=== PATIENT | female | born 1930 | race Hispanic/Latino ===

== ENCOUNTER 2017-08-06 09:40 | Inpatient (IN) | payer MEDICARE ==
[2017-08-06] MEDS ORDERED: Albuterol-Ipratrop 3 mg / 0.5 (3 ml) UD ONE (10:03)
[2017-08-06] MEDS ORDERED: Albuterol-Ipratrop 3 mg / 0.5 (3 ml) UD INH STA (10:15)
[2017-08-06 10:19] LABS: ABG ALLEN TEST YES; ARTERIAL BLOOD GAS O2 SAT 97.6 % (95-98); ARTERIAL BLOOD GAS PCO2 52 mm/Hg (35-45); ARTERIAL BLOOD GAS PH 7.27 (7.35-7.45); ARTERIAL BLOOD GAS PO2 79 mm/Hg (80-100); ARTERIAL BLOOD GAS TCO2 25.5 mmol/L (22-28)
--- NOTE | 2017-08-06 10:29 | ED PDOC ---
HPI: SOB/CHF/COPD Time Seen by Provider: 08/06/17 10:00 Chief Complaint (Nursing): Shortness Of Breath Chief Complaint (Provider): Shortnes of Breath History Per: Patient History/Exam Limitations: no limitations Onset/Duration Of Symptoms: Days (1x) Quality: "Pain" Exacerbating Factor(s): Laying Flat Associated Symptoms: Ankle/Leg Swelling. denies: Fever, Chest Pain Additional Complaint(s): 86 year old female with a history of hypertension and high cholesterol presents to the ED complaining of shortness of breath. Patient states it worsens when she tries to lie down or sleep. Also reports of leg swelling on both legs as well as wheezing and coughing. States this is the first time she has had this problem. Patient has had carotid endarterectomy and takes Aspirin. Denies chest pain or fever. PMD: Jean Carlos Miles Past Medical History Reviewed: Historical Data, Nursing Documentation, Vital Signs Vital Signs: Last Vital Signs Temp 97.5 F L 08/06/17 10:08 Pulse 98 H 08/06/17 12:04 Resp 30 H 08/06/17 10:12 BP 143/84 08/06/17 13:13 Pulse Ox 95 08/06/17 12:04 - Medical History PMH: HTN, Hypercholesterolemia Denies: Chronic Kidney Disease - Surgical History Other surgeries: carotid endarterectomy - Family History Family History: States: Unknown Family Hx - Home Medications Home Medications: Ambulatory Orders Medication Instructions Recorded ALPRAZolam [Xanax] 0.25 mg PO Q12 PRN 08/06/17 Aspirin [Ecotrin] 81 mg PO DAILY 08/06/17 Azilsartan Medoxomil [Edarbi] 80 mg PO DAILY 08/06/17 Clopidogrel [Plavix] 75 mg PO DAILY 08/06/17 Doxazosin [Cardura] 2 mg PO HS 08/06/17 Ergocalciferol (Vitamin D2) 50,000 unit PO SUN 08/06/17 [Vitamin D2] Febuxostat [Uloric] 40 mg PO DAILY 08/06/17 Icosapent Ethyl [Vascepa] 1 cap PO BID 08/06/17 Levocetirizine Dihydrochloride 5 mg PO DAILY 08/06/17 [Xyzal] Liraglutide [Victoza 3-Rohan] 1.8 mg SC DAILY 08/06/17 Meclizine [Meclizine*] 25 mg PO DAILY PRN 08/06/17 Montelukast [Singulair] 10 mg PO HS 08/06/17 Nebivolol [Bystolic] 20 mg PO DAILY 08/06/17 Rosuvastatin Calcium [Crestor] 10 mg PO HS 08/06/17 - Allergies Allergies/Adverse Reactions: Allergies Allergy/AdvReac Type Severity Reaction Status Date / Time No Known Allergies Allergy Verified 08/06/17 10:01 Review of Systems ROS Statement: Except As Marked, All Systems Reviewed And Found Negative Cardiovascular: Negative for: Chest Pain Respiratory: Positive for: Cough, Shortness of Breath, Wheezing Physical Exam - Reviewed Nursing Documentation Reviewed: Yes Vital Signs Reviewed: Yes - Physical Exam Appears: Positive for: Non-toxic, In Acute Distress Head Exam: Positive for: ATRAUMATIC, NORMAL INSPECTION, NORMOCEPHALIC Skin: Positive for: Normal Color, Warm, Dry Eye Exam: Positive for: EOMI, Normal appearance, PERRL ENT: Positive for: Normal ENT Inspection Neck: Positive for: Normal, Painless ROM, Supple. Negative for: Decreased ROM Cardiovascular/Chest: Positive for: Regular Rate, Rhythm, Edema, Tachycardia. Negative for: Murmur Respiratory: Positive for: Accessory Muscle Use, Rhonchi, Wheezing (bilateral), Respiratory Distress (bleeding). Negative for: Normal Breath Sounds Gastrointestinal/Abdominal: Positive for: Normal Exam, Bowel Sounds, Soft. Negative for: Tenderness, Guarding, Rebound Back: Positive for: Normal Inspection. Negative for: L CVA Tenderness, R CVA Tenderness Extremity: Positive for: Normal ROM, Pedal Edema, Swelling (bilateral) Neurologic/Psych: Positive for: Alert, Oriented (x3). Negative for: Motor/ Sensory Deficits - Laboratory Results Result Diagrams: 08/06/17 10:21 08/06/17 10:21 - ECG ECG Rhythm: Positive for: Normal QRS, Sinus Rhythm, ST/T Changes (LVH) Interpretation Of ECG: left ventricular hypertrophy with regularization abnormality Rate: 98 O2 Sat by Pulse Oximetry: 95 (RA) Pulse Ox Interpretation: Normal - Radiology X-Ray: Interpreted by Me, Viewed By Me, Read By Radiologist X-Ray Interpretation: Cardiomegaly, Other (CHF) - Progress Re-evaluation Time: 11:40 Condition: Re-examined, Improving,but remains with symptoms - Critical Care Total Time (In Min): 60 Documented Critical Care: Time excludes all time spent performint seperately billable procedures Medical Decision Making Medical Decision Making: Time: 1001 Initial Impression: Shortness of Breath Differential Diagnosis includes but is not limited to: ACS, acute CHF, Pneumonia , acute Bronchitis Initial Plan: --ABG Shock Panel --EKG --B-Type Natriuretic Peptide --BMP --Thyroid Stimulating Hormone --Troponin I --CBC w/ Differential --PTT --Prothrombin Time --Chest One View --Chest Portable --Aspirin 325mg --Albuterol 3ml INH --Nitroglycerin 0.4mg --Blood Culture --Bipap Procedure --Peak Flow Pre/Post TX --Reevaluation Time: 1007 EKG demonstrated 98bpm, normal sinus rhythm, normal QRS, ST changes present, and left ventricular hypertrophy with repolarization abnormality Discussed case and EKG with Dr. Modi who reviewed the EKG states that the are no criteria for CODE HEART, recommended to do a cardiac workup and treat as NSTEMI. [address] Modi elevated troponin who recommends medical therapy for NSTEMI. [address] Saenz who will admit the patient. Requests Dr Perez. [address] Perez who agress this is not CODE HEART and recommends admission to ICU at this time and stabilize for urgent cath if patients agrees. 1155 I discussed with the patient who agrees with conservative therapy but refuses cath at this time. Scribe Attestation: Documented by Kirill Spears, acting as a scribe for Kesha Hancock MD Provider Scribe Attestation: All medical record entries made by the Scribe were at my direction and personally dictated by me. I have reviewed the chart and agree that the record accurately reflects my personal performance of the history, physical exam, medical decision making, and the department course for this patient. I have also personally directed, reviewed, and agree with the discharge instructions and disposition. Disposition - Clinical Impression Clinical Impression: Non-ST elevation TX (NSTEMI), Acute CHF - Patient ED Disposition Is Patient to be Admitted: Yes Discussed With Dr.: Clint Saenz (Mary PIERSON) Doctor Will See Patient In The: ED Counseled Patient/Family Regarding: Studies Performed, Diagnosis, Need For Followup - Disposition Disposition Time: 11:00 Condition: CRITICAL - Pt Status Changed To: Hospital Disposition Of: Inpatient - Admit Certification Admit to Inpatient:: After my assessment, the patient will require hospitalization for at least two midnights. This is because of the severity of symptoms shown, intensity of services needed, and/or the medical risk in this patient being treated as an outpatient. - POA Present On Arrival: None
[2017-08-06 10:37] LABS: BASO % 0.2 % (0.0-2.0); EOS % 0.1 % (0.0-4.0); HEMOGLOBIN 12.8 g/dL (12.0-16.0); LYMPH # 3.4 K/uL (1.0-4.3); LYMPH % 19.8 % (20.0-40.0); MEAN CELL VOLUME 88.2 fl (81.0-99.0); MEAN CORPUSCULAR HGB CONC 31.7 g/dL (33.0-37.0); MEAN PLATELET VOLUME 8.5 fl (7.2-11.7); MONO % 5.9 % (0.0-10.0); NEUT # 12.6 K/uL (1.8-7.0); RBC 4.58 Mil/uL (3.80-5.20); RED CELL DISTRIBUTION WIDTH 14.4 % (11.5-14.5)
[2017-08-06 10:47] LABS: BLOOD UREA NITROGEN 19 mg/dl (7-17); CALCIUM 10.9 mg/dL (8.4-10.2); GFR AFRICAN-AMERICAN > 60; GFR NON-AFRICAN AMERICAN 52
[2017-08-06 11:12] LABS: PARTIAL THROMBOPLASTIN TIME 28.5 Seconds (25.6-37.1); PROTHROMBIN TIME 11.2 Seconds (9.8-13.1)
[2017-08-06 11:22] LABS: B-TYPE NATRIURETIC PEPTIDE 15500 pg/ml (0-900)
[2017-08-06] MEDS ORDERED: Heparin 25,000units in D5W 25,000 UNITS/250 ML BAG IV SCH (11:30)
--- NOTE | 2017-08-06 11:55 | CP.PCM.CON ---
History of Present Illness - History of Present Illness History of Present Illness: 86 y/o female with pmx of CAD, heart failure presents to [facility] with c/o SOB. Patient was dx with NSTEMI. Patient has h/o using 3 pillows and many times uses a chair to sleep. Patient has exercise toelrance of about 1 block. Patient has h/o CEA (taking asa/plavix). Patient denies any chest pain upon evaluation. (+)SOB Pmx: CAD, CEA, HTN, hypercholesterolemia Psurg hs; CEA allergies: denies SH: h/o smoking (quit 20 yrs ago) Review of Systems - Cardiovascular Cardiovascular: Dyspnea - Respiratory Respiratory: Dyspnea, Dyspnea on Exertion - Gastrointestinal Gastrointestinal: absent: Abdominal Pain, Belching, Early Satiety, Fecal Incontinence, Hematemesis Past Patient History - Tetanus Immunizations Tetanus Immunization: Unknown - Past Social History Smoking Status: Former Smoker Chewing Tobacco Use: No Cigar Use: No - CARDIAC Hx Hypercholesterolemia: Yes Hx Hypertension: Yes - PULMONARY Hx Respiratory Disorders: No - NEUROLOGICAL Hx Neurological Disorder: No - HEENT Hx HEENT Problems: No - RENAL Hx Chronic Kidney Disease: No - ENDOCRINE/METABOLIC Hx Endocrine Disorders: No - HEMATOLOGICAL/ONCOLOGICAL Hx Blood Disorders: No - INTEGUMENTARY Hx Dermatological Problems: No - MUSCULOSKELETAL/RHEUMATOLOGICAL Hx Musculoskeletal Disorders: No - GASTROINTESTINAL Hx Gastrointestinal Disorders: No - GENITOURINARY/GYNECOLOGICAL Hx Genitourinary Disorders: No - PSYCHIATRIC Hx Psychophysiologic Disorder: No Hx Substance Use: No - SURGICAL HISTORY Hx Surgeries: No - ANESTHESIA Hx Anesthesia: No Meds Allergies/Adverse Reactions: Allergies Allergy/AdvReac Type Severity Reaction Status Date / Time No Known Allergies Allergy Verified 08/06/17 10:01 - Medications Medications: Current Medications Heparin Sodium/Dextrose (Heparin 25,000 Units/250ml In D5w) 25,000 units in 250 mls @ 10 mls/hr IV .Q24H TOD PRN Reason: Protocol Physical Exam - Head Exam Head Exam: ATRAUMATIC, NORMAL INSPECTION, NORMOCEPHALIC Additional comments: (+)JVD - Respiratory Exam Respiratory Exam: Rales, NORMAL BREATHING PATTERN - Cardiovascular Exam Cardiovascular Exam: REGULAR RHYTHM, +S1, +S2, Systolic Murmur - GI/Abdominal Exam GI & Abdominal Exam: Normal Bowel Sounds, Soft - Extremities Exam Extremities exam: Positive for: pedal edema - Neurological Exam Neurological exam: Alert, CN II-XII Intact, Oriented x3 Results - Vital Signs Recent Vital Signs: Last Vital Signs Temp 97.5 F L 08/06/17 10:08 Pulse 98 H 08/06/17 11:19 Resp 30 H 08/06/17 10:12 BP 127/87 08/06/17 10:08 Pulse Ox 95 08/06/17 11:19 - Labs Result Diagrams: 08/06/17 10:21 08/06/17 10:21 Labs: Laboratory Results - last 24 hr 08/06/17 08/06/17 08/06/17 10:01 10:21 10:21 WBC 17.0 H RBC 4.58 Hgb 12.8 Hct 40.4 MCV 88.2 MCH 28.0 MCHC 31.7 L RDW 14.4 Plt Count 252 MPV 8.5 Neut % (Auto) 74.0 Lymph % (Auto) 19.8 L A[place] % (Auto) 5.9 Eos % (Auto) 0.1 Baso % (Auto) 0.2 Neut # (Auto) 12.6 H Lymph # (Auto) 3.4 Avery # (Auto) 1.0 H Eos # (Auto) 0.0 Baso # (Auto) 0.0 PT INR APTT pCO2 52 H pO2 79 L HCO3 22.0 ABG pH 7.27 L ABG Total CO2 25.5 ABG O2 Saturation 97.6 ABG Base Excess -3.6 L Eloy Test Yes ABG Potassium 4.6 A-a O2 Difference 70.0 Sodium 135.0 136 Chloride 101.0 99 Glucose 198 H Lactate 4.4 H* FiO2 30.0 Blood Gas Comments 2l/m nc,rr Crit Value Called To Dr reggie maruice Crit Value Called By 15 Crit Value Read Back Y Blood Gas Notified Time 1018 Potassium 4.7 Carbon Dioxide 18 L Anion Gap 24 H BUN 19 H Creatinine 1.0 Est GFR ( Amer) > 60 Est GFR (Non-Af Amer) 52 Random Glucose 179 H Calcium 10.9 H Troponin I 33.8000 H* NT-Pro-B Natriuret Pep 32193 H TSH 3rd Generation 2.83 Arterial Blood Potassium 4.6 08/06/17 10:50 WBC RBC Hgb Hct MCV MCH MCHC RDW Plt Count MPV Neut % (Auto) Lymph % (Auto) Avery % (Auto) Eos % (Auto) Baso % (Auto) Neut # (Auto) Lymph # (Auto) Avery # (Auto) Eos # (Auto) Baso # (Auto) PT 11.2 INR 1.0 APTT 28.5 pCO2 pO2 HCO3 ABG pH ABG Total CO2 ABG O2 Saturation ABG Base Excess Eloy Test ABG Potassium A-a O2 Difference Sodium Chloride Glucose Lactate FiO2 Blood Gas Comments Crit Value Called To Crit Value Called By Crit Value Read Back Blood Gas Notified Time Potassium Carbon Dioxide Anion Gap BUN Creatinine Est GFR ( Amer) Est GFR (Non-Af Amer) Random Glucose Calcium Troponin I NT-Pro-B Natriuret Pep TSH 3rd Generation Arterial Blood Potassium Assessment & Plan - Assessment and Plan (Free Text) Assessment: NSTEMI: cardiology input, continue DAPT, asa/plavix, start IV heparin, statin, hodl ACEi in light of possible PCI, obtain ECHO -SOB/ssupect chronic systolic/diastolic heart failure: will benefit from Bi-pap , check ABG on bi-pap, lasix -leukocytosis: suspect 2nd PA however will pancutlure, dose ceftriaxone 1 gm x1 ; if febriel will start ABX -NPO, BGM q6hrs ISS aspart -DVT ppx IV heparin -PUD ppx pepcid Patient will benfit from ICU level care until acute phase resolves. d/w Dr. Perez - Date & Time Date: 08/06/17 Time: 15:07
[2017-08-06] MEDS ORDERED: Sodium Chloride 3% for Inhalation 4 ML VIAL.NEB IH PRN (11:57)
[2017-08-06] MEDS ORDERED: Heparin 25,000units in D5W 25,000 UNITS/250 ML BAG IV ONE (12:05)
--- NOTE | 2017-08-06 12:22 | RAD ---
PROCEDURE: CHEST RADIOGRAPH, 1 VIEW HISTORY: dyspnea COMPARISON: None available. FINDINGS: LUNGS: Increased interstitial markings are identified bilaterally, diffusely without definitive alveolitis. Underlying chronic interstitial pulmonary disease is not completely excluded. PLEURA: No pneumothorax or pleural fluid seen. CARDIOVASCULAR: Cardiomegaly is questioned though evaluation is limited due to frontal technique. [id number] pulmonary venous congestion is present, which combined with interstitial pattern described above, suggests active CHF. OSSEOUS STRUCTURES: No significant abnormalities. VISUALIZED UPPER ABDOMEN: Normal. OTHER FINDINGS: None. IMPRESSION: Active CHF as described above. No definite alveolitis or pleural effusion bilaterally paucity of underlying chronic interstitial pulmonary disease is not excluded.
[2017-08-06] MEDS ORDERED: Albuterol 0.083% Inhal Sol (2.5 mg/3 mL) UD INH ONE (12:56)
--- NOTE | 2017-08-06 12:56 | CP.PCM.HP ---
History of Present Illness - History of Present Illness History of Present Illness: 86 yo ,f, PMhx/o HTN, HLD presents c/o SOB started 2 days ago associated with dry cough, runny nose, sore throat and left shoulder pain radiated to upper back. She reports ocs whitish productive cough with blood tinge expectoration. Reports hx/o of orthopnea for about 1 year, but getting worse for the last 2 days with associated pedal edema. . She denies fever, diaphoresis, n,v,d,abd pain, dysuria, recent infection. Patient evaluated in Ed with several members of the family present. Patient improved respiratory distress with prior medications and O2. Patient stable now, good O2 sat, able to talk in full sentences. AAO x3, refusing to stay in hospital, going to ICU and PCI. Family members and patient explained about patient medical condition, plan by Contract Negotiation Specialist and they agree, but patient still refusing going ICU and PCI. Dr Melgoza and me present. Dr Saenz aware covering for Dr Miles. Family members reports patient had never had hospitalizations before PMD: Dr Miles Present on Admission - Present on Admission Any Indicators Present on Admission: No History of DVT/PE: No History of Uncontrolled Diabetes: No Urinary Catheter: No Decubitus Ulcer Present: No Review of Systems - Review of Systems All systems: reviewed and no additional remarkable complaints except - Musculoskeletal Additional comments: left shoulder pain Past Patient History - Past Social History Smoking Status: Never Smoked - CARDIAC Hx Hypercholesterolemia: Yes Hx Hypertension: Yes - PULMONARY Hx Respiratory Disorders: No - NEUROLOGICAL Hx Neurological Disorder: No - HEENT Hx HEENT Problems: No - RENAL Hx Chronic Kidney Disease: No - ENDOCRINE/METABOLIC Hx Endocrine Disorders: No - HEMATOLOGICAL/ONCOLOGICAL Hx Blood Disorders: No - INTEGUMENTARY Hx Dermatological Problems: No - MUSCULOSKELETAL/RHEUMATOLOGICAL Hx Musculoskeletal Disorders: No - GASTROINTESTINAL Hx Gastrointestinal Disorders: No - GENITOURINARY/GYNECOLOGICAL Hx Genitourinary Disorders: No - PSYCHIATRIC Hx Psychophysiologic Disorder: No Hx Substance Use: No - SURGICAL HISTORY Hx Surgeries: No - ANESTHESIA Hx Anesthesia: No Meds Allergies/Adverse Reactions: Allergies Allergy/AdvReac Type Severity Reaction Status Date / Time No Known Allergies Allergy Verified 08/06/17 10:01 Physical Exam - Constitutional Appears: In Acute Distress (mild for respiratory distress) - Head Exam Head Exam: ATRAUMATIC, NORMOCEPHALIC - Eye Exam Eye Exam: Normal appearance - Respiratory Exam Respiratory Exam: Rales. absent: Rhonchi, Wheezes Additional comments: b/l rales 2/3 both lung hall - Cardiovascular Exam Cardiovascular Exam: REGULAR RHYTHM, +S1, +S2 - GI/Abdominal Exam GI & Abdominal Exam: Normal Bowel Sounds, Soft. absent: Tenderness Additional comments: obese abdomen - Extremities Exam Extremities exam: Positive for: pedal edema (2+ ankles) - Neurological Exam Neurological exam: Alert, Oriented x3 - Psychiatric Exam Psychiatric exam: Normal Affect, Normal Mood - Skin Skin Exam: Intact Results - Vital Signs Recent Vital Signs: Last Vital Signs Temp 97.5 F L 08/06/17 10:08 Pulse 98 H 08/06/17 12:04 Resp 30 H 08/06/17 10:12 BP 127/87 08/06/17 10:08 Pulse Ox 95 08/06/17 12:04 - Labs Result Diagrams: 08/06/17 10:21 08/06/17 10:21 Labs: Laboratory Results - last 24 hr 08/06/17 08/06/17 08/06/17 10:01 10:21 10:21 WBC 17.0 H RBC 4.58 Hgb 12.8 Hct 40.4 MCV 88.2 MCH 28.0 MCHC 31.7 L RDW 14.4 Plt Count 252 MPV 8.5 Neut % (Auto) 74.0 Lymph % (Auto) 19.8 L [place] % (Auto) 5.9 Eos % (Auto) 0.1 Baso % (Auto) 0.2 Neut # (Auto) 12.6 H Lymph # (Auto) 3.4 [place] # (Auto) 1.0 H Eos # (Auto) 0.0 Baso # (Auto) 0.0 PT INR APTT pCO2 52 H pO2 79 L HCO3 22.0 ABG pH 7.27 L ABG Total CO2 25.5 ABG O2 Saturation 97.6 ABG Base Excess -3.6 L Eloy Test Yes ABG Potassium 4.6 A-a O2 Difference 70.0 Sodium 135.0 136 Chloride 101.0 99 Glucose 198 H Lactate 4.4 H* FiO2 30.0 Blood Gas Comments 2l/m nc,rr Crit Value Called To Dr reggie maurice Crit Value Called By 15 Crit Value Read Back Y Blood Gas Notified Time 1018 Potassium 4.7 Carbon Dioxide 18 L Anion Gap 24 H BUN 19 H Creatinine 1.0 Est GFR ( Amer) > 60 Est GFR (Non-Af Amer) 52 Random Glucose 179 H Calcium 10.9 H Troponin I 33.8000 H* NT-Pro-B Natriuret Pep 90767 H TSH 3rd Generation 2.83 Arterial Blood Potassium 4.6 08/06/17 10:50 WBC RBC Hgb Hct MCV MCH MCHC RDW Plt Count MPV Neut % (Auto) Lymph % (Auto) [place] % (Auto) Eos % (Auto) Baso % (Auto) Neut # (Auto) Lymph # (Auto) [place] # (Auto) Eos # (Auto) Baso # (Auto) PT 11.2 INR 1.0 APTT 28.5 pCO2 pO2 HCO3 ABG pH ABG Total CO2 ABG O2 Saturation ABG Base Excess Eloy Test ABG Potassium A-a O2 Difference Sodium Chloride Glucose Lactate FiO2 Blood Gas Comments Crit Value Called To Crit Value Called By Crit Value Read Back Blood Gas Notified Time Potassium Carbon Dioxide Anion Gap BUN Creatinine Est GFR ( Amer) Est GFR (Non-Af Amer) Random Glucose Calcium Troponin I NT-Pro-B Natriuret Pep TSH 3rd Generation Arterial Blood Potassium Assessment & Plan - Assessment and Plan (Free Text) Plan: Assessment/Plan 1) NSTEMI -Trop x 1 high. EKG LVH -discussed with Contract Negotiation Specialist Dr Perez in ED. Pt candidate for PCI, but patient refuses -will go to ICU meantime. -Heparin given in ED -c/w ACS heparin protocol -s/p nitro Ed, aspirin -F/u Troponin, echo, ekg 2) Acute CHF -secondary to pulmonary edema 2/2 NSTEMI -f/u ECO -c/w O2 bipap 3) Respiratory distress -respiratory acidosis secondary to NSTEMI -Bipap in ED -will c/w BIPAP -f/u AVG 4) HTN -hold BB due to acute CHF 5) HLD -statin for NSTEMI 6) GI Prophylaxis Pepcid q 12 h IH 7) DVT prophylaxis -on heparin
[2017-08-06] MEDS: Albuterol-Ipratrop 3 mg / 0.5 (3 ml) UD INH PRN (16:08)
[2017-08-06] MEDS: Acetylcysteine 20% Inhal Soln (4ml) PO SCH (17:14)
--- NOTE | 2017-08-06 18:32 | CP.PCM.CON ---
History of Present Illness - History of Present Illness History of Present Illness: 86-year-old female with past medical history significant for hypertension hyperlipidemia presented with complains of paroxysmal nocturnal dyspnea ongoing for 4 days prior to presentation she had an associated dry cough accompanied with a postnasal drip with a pain radiating to the upper back. Described the cough productive of whitish sputum occasionally blood- tinged. As per the patient she has chronic orthopnea which got worse over the course of last 4 days associated with lower extremity edema denied having any episodes of chest pain. In the emergency room she was given IV Lasix along with oxygen which improved her breathing briefly. Her labs were noted to have elevated troponins of 30 along with a BNP of 15,000. Initial EKG was sent to the project control manager STEMI doctor who felt patient has LVH with repolarization there was some ST depressions noted in the lateral leads. Clinically she was in moderate respiratory distress normotensive with heart rate in the 90s. Review of Systems - Review of Systems Systems not reviewed;Unavailable: Acuity of Condition - Constitutional Constitutional: As Per HPI - EENT Eyes: As Per HPI Ears: As Per HPI Nose/Mouth/Throat: As Per HPI - Breasts Breasts: As Per HPI - Cardiovascular Cardiovascular: As Per HPI - Respiratory Respiratory: As Per HPI - Gastrointestinal Gastrointestinal: As Per HPI - Genitourinary Genitourinary: As Per HPI - Reproductive: Female Reproductive:Female: As Per HPI - Menstruation Menstruation: As Per HPI - Musculoskeletal Musculoskeletal: As Per HPI - Integumentary Integumentary: As Per HPI - Neurological Neurological: As Per HPI - Psychiatric Psychiatric: As Per HPI - Endocrine Endocrine: As Per HPI - Hematologic/Lymphatic Hematologic: As Per HPI Past Patient History - Tetanus Immunizations Tetanus Immunization: Unknown - Past Social History Smoking Status: Former Smoker Chewing Tobacco Use: No Cigar Use: No - CARDIAC Hx Hypercholesterolemia: Yes Hx Hypertension: Yes - PULMONARY Hx Respiratory Disorders: No - NEUROLOGICAL Hx Neurological Disorder: No - HEENT Hx HEENT Problems: No - RENAL Hx Chronic Kidney Disease: No - ENDOCRINE/METABOLIC Hx Endocrine Disorders: No - HEMATOLOGICAL/ONCOLOGICAL Hx Blood Disorders: No - INTEGUMENTARY Hx Dermatological Problems: No - MUSCULOSKELETAL/RHEUMATOLOGICAL Hx Musculoskeletal Disorders: No - GASTROINTESTINAL Hx Gastrointestinal Disorders: No - GENITOURINARY/GYNECOLOGICAL Hx Genitourinary Disorders: No - PSYCHIATRIC Hx Psychophysiologic Disorder: No Hx Substance Use: No - SURGICAL HISTORY Hx Surgeries: No - ANESTHESIA Hx Anesthesia: No Meds Allergies/Adverse Reactions: Allergies Allergy/AdvReac Type Severity Reaction Status Date / Time No Known Allergies Allergy Verified 08/06/17 10:01 - Medications Medications: Current Medications Acetaminophen (Tylenol 325mg Tab) 650 mg PO Q6H PRN PRN Reason: Pain, Mild (1-3) Acetaminophen (Tylenol 325mg Tab) 650 mg PO Q6H PRN PRN Reason: Fever >100.4 F Acetylcysteine (Acetylcysteine 20%) 3 ml PO BID TOD Stop: 08/08/17 09:01 Last Admin: 08/06/17 17:14 Dose: 3 ml Albuterol/Ipratropium (Duoneb 3 Mg/0.5 Mg (3 Ml) Ud) 3 ml INH RQ6 PRN PRN Reason: Shortness of Breath Last Admin: 08/06/17 16:08 Dose: 3 ml Aspirin (Aspirin Chewable) 81 mg PO DAILY [facility] Atorvastatin Calcium (Lipitor) 40 mg PO DAILY [facility] Clopidogrel Bisulfate (Plavix) 75 mg PO DAILY [facility] Famotidine (Famotidine) 20 mg IVP Q12 [facility] Heparin Sodium/Dextrose (Heparin 25,000 Units/250ml In D5w) 25,000 units in 250 mls @ 10 mls/hr IV .Q24H TOD PRN Reason: Protocol Last Admin: 08/06/17 12:26 Dose: 10 mls/hr, 10 mls/hr Morphine Sulfate (Morphine) 2 mg IVP Q4H PRN PRN Reason: Pain, severe (8-10) Nitroglycerin (Nitrostat Sl Tab) 0.4 mg SL Q5M PRN PRN Reason: Pain, moderate (4-7) Ondansetron HCl (Zofran Inj) 4 mg IVP Q6H PRN PRN Reason: Nausea/Vomiting Physical Exam - Constitutional Appears: Well - Head Exam Head Exam: ATRAUMATIC, NORMAL INSPECTION, NORMOCEPHALIC - Eye Exam Eye Exam: EOMI, Normal appearance, PERRL Pupil Exam: NORMAL ACCOMODATION, PERRL - ENT Exam ENT Exam: Mucous Membranes Moist, Normal Exam - Neck Exam Neck exam: Positive for: Normal Inspection - Respiratory Exam Respiratory Exam: Decreased Breath Sounds, Rales, Rhonchi, NORMAL BREATHING PATTERN - Cardiovascular Exam Cardiovascular Exam: REGULAR RHYTHM, RRR, +S1, +S2, Systolic Murmur - GI/Abdominal Exam GI & Abdominal Exam: Normal Bowel Sounds, Soft. absent: Tenderness - Extremities Exam Extremities exam: Positive for: normal inspection - Back Exam Back exam: NORMAL INSPECTION - Neurological Exam Neurological exam: Alert, CN II-XII Intact, Normal Gait, Oriented x3, Reflexes Normal - Psychiatric Exam Psychiatric exam: Normal Affect, Normal Mood - Skin Skin Exam: Dry, Intact, Normal Color, Warm Results - Vital Signs Recent Vital Signs: Last Vital Signs Temp 97.7 F 08/06/17 16:12 Pulse 98 H 08/06/17 16:12 Resp 22 08/06/17 16:12 BP 125/60 08/06/17 16:12 Pulse Ox 96 08/06/17 16:12 - Labs Result Diagrams: 08/06/17 10:21 08/06/17 10:21 Labs: Laboratory Results - last 24 hr 08/06/17 08/06/17 08/06/17 10:01 10:21 10:21 WBC 17.0 H RBC 4.58 Hgb 12.8 Hct 40.4 MCV 88.2 MCH 28.0 MCHC 31.7 L RDW 14.4 Plt Count 252 MPV 8.5 Neut % (Auto) 74.0 Lymph % (Auto) 19.8 L Mccreary % (Auto) 5.9 Eos % (Auto) 0.1 Baso % (Auto) 0.2 Neut # (Auto) 12.6 H Lymph # (Auto) 3.4 Mccreary # (Auto) 1.0 H Eos # (Auto) 0.0 Baso # (Auto) 0.0 PT INR APTT pCO2 52 H pO2 79 L HCO3 22.0 ABG pH 7.27 L ABG Total CO2 25.5 ABG O2 Saturation 97.6 ABG Base Excess -3.6 L Eloy Test Yes ABG Potassium 4.6 A-a O2 Difference 70.0 Sodium 135.0 136 Chloride 101.0 99 Glucose 198 H Lactate 4.4 H* FiO2 30.0 Blood Gas Comments 2l/m nc,rr Crit Value Called To Dr reggie maurice Crit Value Called By 15 Crit Value Read Back Y Blood Gas Notified Time 1018 Potassium 4.7 Carbon Dioxide 18 L Anion Gap 24 H BUN 19 H Creatinine 1.0 Est GFR ( Amer) > 60 Est GFR (Non-Af Amer) 52 Random Glucose 179 H Calcium 10.9 H Troponin I 33.8000 H* NT-Pro-B Natriuret Pep 59259 H TSH 3rd Generation 2.83 Arterial Blood Potassium 4.6 08/06/17 10:50 WBC RBC Hgb Hct MCV MCH MCHC RDW Plt Count MPV Neut % (Auto) Lymph % (Auto) Mccreary % (Auto) Eos % (Auto) Baso % (Auto) Neut # (Auto) Lymph # (Auto) Mccreary # (Auto) Eos # (Auto) Baso # (Auto) PT 11.2 INR 1.0 APTT 28.5 pCO2 pO2 HCO3 ABG pH ABG Total CO2 ABG O2 Saturation ABG Base Excess Eloy Test ABG Potassium A-a O2 Difference Sodium Chloride Glucose Lactate FiO2 Blood Gas Comments Crit Value Called To Crit Value Called By Crit Value Read Back Blood Gas Notified Time Potassium Carbon Dioxide Anion Gap BUN Creatinine Est GFR ( Amer) Est GFR (Non-Af Amer) Random Glucose Calcium Troponin I NT-Pro-B Natriuret Pep TSH 3rd Generation Arterial Blood Potassium Assessment & Plan (1) Non-ST elevation WI (NSTEMI) Assessment and Plan: IV heparin drip asa, bb, statins echo telemetry plan for CHCx once breathing stable serial tni Status: Acute (2) Acute CHF Assessment and Plan: IV lasix BB acei aldactone Status: Acute
[2017-08-07 05:51] LABS: BASO % 0.3 % (0.0-2.0); EOS % 0.1 % (0.0-4.0); HEMOGLOBIN 11.5 g/dL (12.0-16.0); LYMPH # 3.6 K/uL (1.0-4.3); LYMPH % 20.8 % (20.0-40.0); MEAN CELL VOLUME 85.6 fl (81.0-99.0); MEAN CORPUSCULAR HEMOGLOBIN 27.8 pg (27.0-31.0); MEAN CORPUSCULAR HGB CONC 32.5 g/dL (33.0-37.0); MEAN PLATELET VOLUME 8.8 fl (7.2-11.7); MONO # 1.6 K/uL (0.0-0.8); MONO % 9.4 % (0.0-10.0); NEUT # 11.9 K/uL (1.8-7.0); NEUT % 69.4 % (50.0-75.0); NRBC % 0.1 % (0.0-0.0); RBC 4.14 Mil/uL (3.80-5.20); RED CELL DISTRIBUTION WIDTH 13.9 % (11.5-14.5); WHITE BLOOD COUNT 17.1 K/uL (4.8-10.8)
[2017-08-07 06:01] LABS: ALB/GLOB RATIO 1.1 (1.0-2.1); ALBUMIN 3.9 g/dL (3.5-5.0); CALCIUM 10.1 mg/dL (8.4-10.2)
[2017-08-07 06:15] LABS: TROPONIN I 77.4 ng/mL (0.00-0.120)
[2017-08-07] MEDS: Acetylcysteine 20% Inhal Soln (4ml) PO SCH (07:30)
[2017-08-07] MEDS: Albuterol-Ipratrop 3 mg / 0.5 (3 ml) UD INH PRN (07:31)
--- NOTE | 2017-08-07 08:36 | RAD ---
PROCEDURE: CHEST RADIOGRAPH, 1 VIEW HISTORY: eval lungs COMPARISON: 08/06/2017 FINDINGS: LUNGS: Hazy left perihilar opacity. . Diffuse interstitial prominence. This may reflect interstitial pulmonary edema, chronic interstitial infiltrate, etc. PLEURA: Probable small bilateral pleural effusion. Lung apices obscured by patient's head. CARDIOVASCULAR: Normal. OSSEOUS STRUCTURES: No significant abnormalities. VISUALIZED UPPER ABDOMEN: Normal. OTHER FINDINGS: None. IMPRESSION: Left perihilar opacity. Diffuse interstitial prominence, nonspecific. Small bilateral pleural effusions. Possible pulmonary edema with component of interstitial pulmonary edema. Limited examination.
--- NOTE | 2017-08-07 09:23 | PN ---
DATE: 08/07/2017 SUBJECTIVE: The patient is seen and examined. Interim events noted. Consults noted and appreciated. Case discussed with photographic specialist. The patient remains in Intensive Care Unit. The patient with acute VA. The patient is sleepy, arousable, and feels okay. Denies any chest pain or shortness of breath at rest. PHYSICAL EXAMINATION: GENERAL: The patient is in no acute distress. VITAL SIGNS: Stable. HEART: S1 and S2, normal and regular. LUNGS: Good bilateral air exchange. ABDOMEN: Soft and nontender. EXTREMITIES: The patient has edema. No calf swelling. No tenderness. No acute ischemia. CENTRAL NERVOUS SYSTEM: Exam is essentially unchanged. DIAGNOSTIC DATA: Available diagnostic data reviewed. Troponin remains markedly elevated. Telemetry monitoring does not reveal significant arrhythmias and does have ischemic changes. EKG also demonstrated ischemic changes. ASSESSMENT AND PLAN: Overall, the patient is medically stable. For further cardiac workup. Case and plan discussed with the patient and the patient's family at bedside at length. Clint Saenz MD
[2017-08-07 10:26] VITALS: BP 108/68; PULSE 83; RESP 22; O2SAT 100
--- NOTE | 2017-08-07 10:38 | CARD ---
APPROVED REPORT EKG Measurement Heart [id number] <Conclusion> Normal sinus rhythm Left ventricular hypertrophy with repolarization abnormality Abnormal ECG
--- NOTE | 2017-08-07 11:25 | CARD ---
APPROVED REPORT EXAM: Two-dimensional and M-mode echocardiogram with Doppler and color Doppler. Other Information Quality : AverageRhythm : NSR INDICATION Dyspnea 2D DIMENSIONS IVSd1.33 (0.7-1.1cm)LVDd4.88 (3.9-5.9cm) PWd1.15 (0.7-1.1cm)IVSs1.83 (0.8-1.2cm) LVDs3.71 (2.5-4.0cm)FS (%) 24.0 % PWs1.46 (0.8-1.2cm) M-Mode DIMENSIONS Left Atrium (MM)4.63 (2.5-4.0cm)Aortic Root3.04 (2.2-3.7cm) Aortic Cusp Exc.1.46 (1.5-2.0cm) Aortic Valve AoV Peak Eamrfbnn184.8cm/sAoV VTI18.0cmAO Peak GR.4mmHg LVOT Peak Xyhrkxjs21.7cm/sLVOT VTI9.58cmAO Mean GR.3mmHg Mitral Valve MV E Hnariixl440.8cm/sMV DECEL [id number] A Wqxgqijp60.7cm/s MV WIO07ekR/A ratio1.2MVA (PHT)3.88cm2 TDI Lateral E' Peak V8.15cm/sMedial E' Peak V8.80cm/sE/Lateral E'12.5 E/Medial E'11.6 Pulmonary Valve PV Peak Uperiaas83.6cm/s LEFT VENTRICLE The left ventricle is normal size. There is normal left ventricular wall thickness. The left ventricular function is normal. The left ventricular ejection fraction is within the normal range. The Ejection Fraction is 50-55%. There is normal LV segmental wall motion. The left ventricular diastolic function is normal. RIGHT VENTRICLE The right ventricle is normal size. The right ventricular systolic function is normal. ATRIA The left atrium size is normal. The right atrium size is normal. AORTIC VALVE The aortic valve is normal in structure. No aortic regurgitation is present. There is no aortic valvular stenosis. MITRAL VALVE The mitral valve is normal in structure. There is no mitral valve stenosis. Mitral regurgitation is mild. TRICUSPID VALVE The tricuspid valve is normal in structure. There is no tricuspid valve regurgitation noted. There is no tricuspid valve stenosis. PULMONIC VALVE The pulmonary valve is normal in structure. There is no pulmonic valvular regurgitation. GREAT VESSELS The aortic root is normal in size. The IVC is normal in size and collapses >50% with inspiration. PERICARDIAL EFFUSION The pericardium appears normal. <Conclusion> The left ventricle is normal size. The left ventricular function is normal. The left ventricular ejection fraction is within the normal range. The Ejection Fraction is 50-55%. Mitral regurgitation is mild.
[2017-08-07] MEDS ORDERED: Heparin25000 units/250ml 1/2NS 25,000 UNITS/250 ML BAG IV ONE (11:47)
[2017-08-07] MEDS ORDERED: Azithromycin 500 MG in Sodium Chloride 0.9% 250 ML IVPB SCH (12:00)
[2017-08-07 12:12] LABS: SQUAMOUS EPITHIAL < 1 /hpf (0-5); URINE BACTERIA RARE (<OCC); URINE BILIRUBIN NEGATIVE (NEGATIVE); URINE BLOOD NEGATIVE (NEGATIVE); URINE CLARITY CLEAR (Clear); URINE COLOR STRAW (YELLOW); URINE GLUCOSE (UA) NEG (Normal); URINE HYALINE CAST 0-2 /hpf (0-2); URINE LEUKOCYTE ESTERASE NEG Leu/uL (Negative); URINE PROTEIN NEGATIVE (NEGATIVE); URINE UROBILINOGEN 0.2-1.0 mg/dL (0.2-1.0)
[2017-08-07 12:28] VITALS: TEMP 99.1
--- NOTE | 2017-08-09 08:38 | PN ---
DATE: 08/07/2017 CRITICAL CARE PROGRESS NOTE LOCATION: The patient is in ICU, bed 429. TIME SPENT: 45 minutes. IDENTIFICATION DATA: The patient is seen and evaluated at the bedside. Past medical, surgical and social history reviewed. HISTORY OF PRESENT ILLNESS: An 86-year-old morbidly obese female with history significant for hypertension and hyperlipidemia, admitted with progressively worsening shortness of breath with elevated troponin. EKG with repolarization abnormalities consistent with non-STEMI on overnight. No chest pain, but noted to have shortness of breath. Telemetry sinus rhythm remained normotensive and afebrile. This morning, alert, awake, and follows commands appropriate. She is complaining of nonproductive cough at times with minimal expectoration. No palpitation. PHYSICAL EXAMINATION: VITAL SIGNS: Temperature of 99.5, heart rate of 83, regular blood pressure of 108/68, mean arterial pressure of 81, respiratory rate of 22 thoracoabdominal, and oxygen saturation of 100% oxygen 2 L nasal cannula. Weight is 212 pounds. INTAKE AND OUTPUT: intake of 230 and output of 400. Negative balance of 170. HEAD, EYES, EARS, NOSE AND THROAT: Pupils are reactive. Conjunctivae are pink. Sclerae are white. NECK: Supple. Positive jugular venous distention. Trachea is central. CHEST: Bilateral breath sounds. Fine crepitations at the bases. HEART: Rhythm regular. S1 and S2 normal intensity. Soft systolic murmur. ABDOMEN: Bowel sounds are present and soft. EXTREMITIES: Pedal edema. DP palpable and reduce in intensity. NEUROLOGIC: Nonfocal. CURRENT MEDICATIONS: Tylenol 650 every 6 hours p.r.n. for moderate pain, albuterol/Atrovent inhalation 3 mL every 6 hours p.r.n., Mucomyst 3 mL p.o. b.i.d., aspirin 81 mg daily, Lipitor 40 mg daily, Plavix 75 mg daily, Pepcid 20 mg IV every 12 hours, Lasix 40 IV b.i.d., heparin drip at 1000 units per hour, morphine 2 mg IV every 4 hours p.r.n., nitroglycerin 0.4 mg sublingual every 5 minutes p.r.n. for pain, and Zofran 4 mg_ IV every 6 hours p.r.n. LABORATORY DATA: WBC of 17.1, hemoglobin of 11.5, hematocrit of 35.5, and platelet count of 215. PTT of 60.7. ABG; pH of 7.27, pCO2 of 52, pO2 of 79, oxygen saturation of 97.6, and lactate 4.4. SMA-7: Sodium of 136, potassium of 4.5, chloride of 92, CO2 of 30, blood urea nitrogen of 19, and creatinine of 1.1. Random glucose of 145, calcium of 10.1, phosphorus of 4.8, magnesium of 1.6, and total bilirubin of 0.6. AST of 289, ALT of 43, and alkaline phosphatase of 46. Troponin 33/60/77. Microbiology: Blood culture, no growth reported. IMAGING DATA: Chest x-ray this morning; small bilateral pleural effusion, left perihilar opacity, diffuse interstitial prominence likely pulmonary edema. IMPRESSION AND PLAN: 1. Neurologic: Alert, awake, and follows commands appropriate. 2. Cardiac: Non ST-elevation myocardial infarction in the setting of chronic heart failure presenting with progressively worsening shortness of breath. Positive troponin. Continue on oxygen supplement, Nitrostat as needed, morphine for pain, heparin drip, Lasix 40 IV every 12 hours, Plavix 75 mg daily, Lipitor 40 mg daily, and aspirin 81 mg daily. 3. Pulmonary: Presenting with cough likely related to bronchospasm on albuterol/Atrovent inhalation. 4. Hematology: Leukocytosis likely reactive, possible coexisting bronchitis/pneumonia. We will add Zithromax 500 mg IV daily. 5. Gastrointestinal: Abnormal liver function tests probably likely congestion secondary to heart failure. If does not improve, we will do further workup to rule out gastrointestinal pathology. Continue deep venous thrombosis and gastrointestinal prophylaxis. Awaiting for transfer for cardiac catheterization and recanalization as per Cardiology. Zeus Varela MD MTDD
== END 2017-08-07 17:12 | disposition short-term general hospital (02) | DRG 281 ==
LOC: H.ER 09:40 → H.ERHOLD 11:52 → H.ICU/CCU 14:09
PROVIDERS: ADMIT Internal Medicine; ATTEND Internal Medicine
PROC: 5A09357 Assistance with Respiratory Ventilation, Less than 24 Consecutive Hours, Continuous Positive Airway Pressure (ICD-10-PCS; principal; 2017-08-06)
DX: I21.4 Non-ST elevation (NSTEMI) myocardial infarction (principal); E87.2 Acidosis; I50.42 Chronic combined systolic (congestive) and diastolic (congestive) heart failure; E66.01 Morbid (severe) obesity due to excess calories; E78.00 Pure hypercholesterolemia, unspecified; E78.5 Hyperlipidemia, unspecified; I11.0 Hypertensive heart disease with heart failure; I25.10 Atherosclerotic heart disease of native coronary artery without angina pectoris; J44.9 Chronic obstructive pulmonary disease, unspecified; J98.01 Acute bronchospasm; Z79.02 Long term (current) use of antithrombotics/antiplatelets; Z79.82 Long term (current) use of aspirin; Z79.899 Other long term (current) drug therapy; Z87.891 Personal history of nicotine dependence; R06.03 Acute respiratory distress; R94.5 Abnormal results of liver function studies; M79.89 Other specified soft tissue disorders; R09.82 Postnasal drip; R06.01 Orthopnea; R60.0 Localized edema

== ENCOUNTER 2017-10-30 22:32 | Inpatient (IN) | payer MEDICARE ==
[2017-10-30] MEDS ORDERED: Albuterol-Ipratrop 3 mg / 0.5 (3 ml) UD IH STA (23:04)
[2017-10-30] MEDS ORDERED: Albuterol-Ipratrop 3 mg / 0.5 (3 ml) UD INH STA (23:04)
--- NOTE | 2017-10-30 23:08 | ED PDOC ---
HPI: SOB/CHF/COPD Time Seen by Provider: 10/30/17 22:52 Chief Complaint (Nursing): Shortness Of Breath Chief Complaint (Provider): Dyspnea History Per: Patient Onset/Duration Of Symptoms: Days (3 weeks) Current Symptoms Are (Timing): Still Present Additional Complaint(s): Dyspnea. Worse on ambulation and laying flat. Denies chest pain, cough, headaches, dizziness, leg pain. Has leg swelling but is much better then previous. Had open heart surgery in August 08. Has been getting betting but then started with the dyspnea. Is compliant with meds and took asa and plavix. Past Medical History Reviewed: Nursing Documentation, Vital Signs Vital Signs: Last Vital Signs Temp 98.2 F 10/30/17 22:48 Pulse 83 10/30/17 22:48 Resp 22 10/30/17 22:48 BP 190/102 H 10/30/17 22:48 Pulse Ox 96 10/30/17 22:48 - Medical History PMH: Bronchitis, CAD, HTN, Hypercholesterolemia, Pneumonia Denies: Chronic Kidney Disease - Surgical History Surgical History: CABG - Family History Family History: States: Unknown Family Hx - Living Arrangements Living Arrangements: With Family - Home Medications Home Medications: Ambulatory Orders Medication Instructions Recorded ALPRAZolam [Xanax] 0.25 mg PO Q12 PRN 08/06/17 Aspirin [Ecotrin] 81 mg PO DAILY 08/06/17 Azilsartan Medoxomil [Edarbi] 80 mg PO DAILY 08/06/17 Clopidogrel [Plavix] 75 mg PO DAILY 08/06/17 Doxazosin [Cardura] 2 mg PO HS 08/06/17 Ergocalciferol (Vitamin D2) 50,000 unit PO SUN 08/06/17 [Vitamin D2] Febuxostat [Uloric] 40 mg PO DAILY 08/06/17 Icosapent Ethyl [Vascepa] 1 cap PO BID 08/06/17 Levocetirizine Dihydrochloride 5 mg PO DAILY 08/06/17 [Xyzal] Liraglutide [Victoza 3-Rohan] 1.8 mg SC DAILY 08/06/17 Meclizine [Meclizine*] 25 mg PO DAILY PRN 08/06/17 Montelukast [Singulair] 10 mg PO HS 08/06/17 Nebivolol [Bystolic] 20 mg PO DAILY 08/06/17 Rosuvastatin Calcium [Crestor] 10 mg PO HS 08/06/17 - Allergies Allergies/Adverse Reactions: Allergies Allergy/AdvReac Type Severity Reaction Status Date / Time No Known Allergies Allergy Verified 08/07/17 13:35 Review of Systems ROS Statement: Except As Marked, All Systems Reviewed And Found Negative Cardiovascular: Positive for: Orthopnea, Edema Respiratory: Positive for: Shortness of Breath Physical Exam - Reviewed Nursing Documentation Reviewed: Yes Vital Signs Reviewed: Yes - Physical Exam Appears: Positive for: Non-toxic, No Acute Distress Head Exam: Positive for: ATRAUMATIC, NORMAL INSPECTION, NORMOCEPHALIC Skin: Positive for: Normal Color, Warm, DRY Eye Exam: Positive for: EOMI, Normal appearance, PERRL ENT: Positive for: Normal ENT Inspection Neck: Positive for: Normal, Painless ROM, Supple Cardiovascular/Chest: Positive for: Regular Rate, Rhythm, Edema (b/l ) Respiratory: Positive for: Decreased Breath Sounds, Other (coarse b/l) Gastrointestinal/Abdominal: Positive for: Normal Exam, Soft. Negative for: Tenderness Back: Positive for: Normal Inspection. Negative for: L CVA Tenderness, R CVA Tenderness Extremity: Positive for: Normal ROM, Pedal Edema (b/l 1+ pitting). Negative for : Tenderness Neurologic/Psych: Positive for: Alert, Oriented - ECG ECG: Positive for: Interpreted By Me, Viewed By Me Interpretation Of Abn EKG: LVH similar to old O2 Sat by Pulse Oximetry: 96 Pulse Ox Interpretation: Normal - Progress ED Course And Treament: 2345: Pt. is stable. AAOx3. Dr. Parada to fu on labs and imaging. Disposition - Clinical Impression Clinical Impression: Dyspnea - Patient ED Disposition Is Patient to be Admitted: Transfer of Care - Disposition Disposition: Transfer of Care Disposition Time: 23:48 Condition: FAIR Patient Signed Over To: Azam Parada
[2017-10-30] MEDS ORDERED: Albuterol-Ipratrop 3 mg / 0.5 (3 ml) UD ONE (23:14)
--- NOTE | 2017-10-30 23:56 | ED PDOC ---
- Laboratory Results Result Diagrams: 11/05/17 05:22 11/05/17 05:22 - ECG O2 Sat by Pulse Oximetry: 96 Medical Decision Making Medical Decision Makin:00 -Patient endorsed to provider by Dr. Gallegos, pending labs and reevaluation. 03:00 -Labs reviewed and significant for marked elevated proBNP levels. Patient will be admitted under observation status for CHF, paged Dr. Miles. Disposition Discussed With : Jean Carlos Miles - Clinical Impression Clinical Impression: Acute CHF - POA Present On Arrival: None - Disposition Disposition: Hospitalized as Observation Patient Disposition Time: 03:00 Condition: FAIR
[2017-10-30 23:57] LABS: INR 1.1; PROTHROMBIN TIME 12.1 Seconds (9.8-13.1)
[2017-10-30 23:58] LABS: BASO # 0.1 K/uL (0.0-0.2); EOS # 0.1 K/uL (0.0-0.7); EOS % 1.3 % (0.0-4.0); HEMOGLOBIN 10.4 g/dL (12.0-16.0); LYMPH # 1.5 K/uL (1.0-4.3); LYMPH % 13.9 % (20.0-40.0); MEAN CELL VOLUME 84.4 fl (81.0-99.0); MEAN CORPUSCULAR HEMOGLOBIN 28.3 pg (27.0-31.0); MEAN CORPUSCULAR HGB CONC 33.5 g/dL (33.0-37.0); MEAN PLATELET VOLUME 9.3 fl (7.2-11.7); MONO # 0.6 K/uL (0.0-0.8); MONO % 5.9 % (0.0-10.0); NEUT # 8.2 K/uL (1.8-7.0); NEUT % 77.9 % (50.0-75.0); NRBC % 0.1 % (0.0-0.0); RBC 3.67 Mil/uL (3.80-5.20); RED CELL DISTRIBUTION WIDTH 16.7 % (11.5-14.5); WHITE BLOOD COUNT 10.5 K/uL (4.8-10.8)
[2017-10-31 00:01] LABS: PARTIAL THROMBOPLASTIN TIME 29.7 Seconds (25.6-37.1)
[2017-10-31] MEDS ORDERED: Alum-Mag Hydrox-Simethicone Susp (30 mL) PO STA (00:31)
[2017-10-31 02:02] LABS: ALB/GLOB RATIO 1.1 (1.0-2.1); CALCIUM 9.6 mg/dL (8.4-10.2)
[2017-10-31 02:32] LABS: TROPONIN I 0.056 ng/mL (0.00-0.120)
[2017-10-31] MEDS ORDERED: Nitroglycerin 2% Ointment Foilpak UD TOP STA (03:25)
[2017-10-31] MEDS ORDERED: Nitroglycerin 2% Ointment Foilpak UD TOP ONE (04:21)
--- NOTE | 2017-10-31 09:57 | RAD ---
Date of service: 10/31/2017 HISTORY: dyspnea COMPARISON: Chest radiograph dated 08/07/2017. FINDINGS: LUNGS: Stable chronic prominence of the bilateral interstitial markings with superimposed pulmonary vascular congestion. Bibasilar atelectasis. PLEURA: Moderate to large left pleural effusion. Small right pleural effusion. CARDIOVASCULAR: Prior sternotomy with sternal wires and surgical clips redemonstrated. Atherosclerotic aortic calcifications. Cardiomediastinal silhouette stably enlarged. OSSEOUS STRUCTURES: Unchanged. VISUALIZED UPPER ABDOMEN: Normal. OTHER FINDINGS: None. IMPRESSION: Stable chronic prominence of the bilateral interstitial markings with superimposed pulmonary vascular congestion and bibasilar atelectasis. Moderate to large left pleural effusion. Small right pleural effusion.
[2017-10-31] MEDS: Potassium Chloride 20 mEq ER Tab PO SCH (10:59)
--- NOTE | 2017-10-31 13:58 | CP.PCM.CON ---
History of Present Illness - History of Present Illness History of Present Illness: Pulmonary consult for a 86 y/o M with multiple chronic medical conditions including Hx PNA, CABG on July 2017, Hx CHF. Pt was admitted to [facility], with SOB, MELENDEZ stated 3 days [employer], gradually increased on DOA, Pt using Singulair at home with no relief. Pt was brought hospital on 10/30/17 via EMS c/o of moderate SOB, associated to MELENDEZ and difficulty breathing when lying flat, no cough. Worsening symptoms: L Pleural effusion on CXR: moderate to large. small R, pulmonary congestion, legs edema. Aggravated factor: Walking/ lying flat. Pt denied: fever, chills, n/v/d, abdominal pain, CP, palpitations, syncope, numbness, sick contact, recent travel out of [facility]. Review of Systems - Constitutional Constitutional: Other (negative) - EENT Eyes: Other (negative) Ears: Other (negative) Nose/Mouth/Throat: Other (negative) - Cardiovascular Cardiovascular: Dyspnea, Leg Edema, Orthopnea - Respiratory Respiratory: Dyspnea, Dyspnea on Exertion, Chest Congestion - Gastrointestinal Gastrointestinal: Other (negative) - Genitourinary Genitourinary: Urinary Incontinence - Musculoskeletal Musculoskeletal: Other (negative) - Integumentary Integumentary: Other (negative) - Neurological Neurological: Other (negative) - Psychiatric Psychiatric: Anxiety - Endocrine Endocrine: Other (negative) - Hematologic/Lymphatic Hematologic: Other (negative) Past Patient History - Tetanus Immunizations Tetanus Immunization: Unknown - Past Medical History & Family History Past Medical History?: Yes Pertinent Family History: Unknown - Past Social History Smoking Status: Former Smoker Alcohol: None Drugs: Denies Home Situation {Lives}: With Family - CARDIAC Hx Cardiac Disorders: Yes Hx Congestive Heart Failure: Yes Hx Hypercholesterolemia: Yes Hx Hypertension: Yes - PULMONARY Hx Respiratory Disorders: Yes Hx Bronchitis: Yes Hx Pneumonia: Yes - NEUROLOGICAL Hx Neurological Disorder: No - HEENT Hx HEENT Problems: No - RENAL Hx Chronic Kidney Disease: No - ENDOCRINE/METABOLIC Hx Endocrine Disorders: No - HEMATOLOGICAL/ONCOLOGICAL Hx Blood Disorders: No - INTEGUMENTARY Hx Dermatological Problems: No - MUSCULOSKELETAL/RHEUMATOLOGICAL Hx Musculoskeletal Disorders: No Hx Falls: No - GASTROINTESTINAL Hx Gastrointestinal Disorders: No - GENITOURINARY/GYNECOLOGICAL Hx Genitourinary Disorders: No - PSYCHIATRIC Hx Psychophysiologic Disorder: Yes Hx Anxiety: Yes Hx Substance Use: No - SURGICAL HISTORY Hx Surgeries: Yes Hx Coronary Artery Bypass Graft: Yes - ANESTHESIA Hx Anesthesia: Yes Hx Anesthesia Reactions: No Meds Allergies/Adverse Reactions: Allergies Allergy/AdvReac Type Severity Reaction Status Date / Time No Known Allergies Allergy Verified 08/07/17 13:35 - Medications Medications: Current Medications Alprazolam (Xanax) 0.25 mg PO Q12 PRN PRN Reason: Anxiety Stop: 11/07/17 11:16 Aspirin (Ecotrin) 81 mg PO DAILY [facility] Last Admin: 10/31/17 13:29 Dose: 81 mg Clopidogrel Bisulfate (Plavix) 75 mg PO DAILY [facility] Doxazosin Mesylate (Cardura) 2 mg PO HS [facility] Ergocalciferol (Drisdol 50,000 Intl Units Cap) 1 cap PO SUN [facility] Furosemide (Lasix) 40 mg IV Q12 [facility] Last Admin: 10/31/17 10:58 Dose: 40 mg Meclizine HCl (Antivert) 25 mg PO DAILY PRN PRN Reason: Dizziness Montelukast Sodium (Singulair) 10 mg PO HS [facility] Potassium Chloride (K-Dur 20 Meq Er Tab) 20 meq PO DAILY [facility] Last Admin: 10/31/17 10:59 Dose: 20 meq Physical Exam - Constitutional Appears: No Acute Distress - Head Exam Head Exam: NORMAL INSPECTION - Eye Exam Eye Exam: PERRL - ENT Exam ENT Exam: Normal Exam - Neck Exam Neck exam: Positive for: Normal Inspection - Respiratory Exam Respiratory Exam: Decreased Breath Sounds (at bases L>R) Additional comments: Crackles at bases - Cardiovascular Exam Cardiovascular Exam: REGULAR RHYTHM - GI/Abdominal Exam GI & Abdominal Exam: Normal Bowel Sounds, Soft - Extremities Exam Extremities exam: Positive for: pedal edema - Neurological Exam Neurological exam: Alert, Oriented x3 Additional comments: no focal motor/sensory deficit - Psychiatric Exam Psychiatric exam: Normal Affect, Normal Mood - Skin Skin Exam: Warm Results - Vital Signs Recent Vital Signs: Last Vital Signs Temp 97.6 F 10/31/17 12:36 Pulse 65 10/31/17 12:36 Resp 18 10/31/17 12:36 BP 145/81 10/31/17 12:36 Pulse Ox 98 10/31/17 12:36 reviewed Virgil - Labs Result Diagrams: 10/30/17 23:43 10/31/17 01:39 Labs: Laboratory Results - last 24 hr 10/30/17 10/30/17 10/31/17 23:43 23:43 01:39 WBC 10.5 RBC 3.67 L Hgb 10.4 L Hct 30.9 L MCV 84.4 MCH 28.3 MCHC 33.5 RDW 16.7 H Plt Count 290 MPV 9.3 Neut % (Auto) 77.9 H Lymph % (Auto) 13.9 L [place] % (Auto) 5.9 Eos % (Auto) 1.3 Baso % (Auto) 1.0 Neut # (Auto) 8.2 H Lymph # (Auto) 1.5 [place] # (Auto) 0.6 Eos # (Auto) 0.1 Baso # (Auto) 0.1 PT 12.1 INR 1.1 APTT 29.7 Sodium 136 Potassium 4.3 Chloride 90 L Carbon Dioxide 38 H Anion Gap 12 BUN 33 H Creatinine 1.9 H Est GFR ( Amer) 30 Est GFR (Non-Af Amer) 25 Random Glucose 147 H Calcium 9.6 Total Bilirubin 1.0 AST 24 ALT 15 Alkaline Phosphatase 76 Troponin I 0.0560 NT-Pro-B Natriuret Pep 22210 H Total Protein 7.6 Albumin 4.0 Globulin 3.5 Albumin/Globulin Ratio 1.1 10/31/17 08:10 WBC RBC Hgb Hct MCV MCH MCHC RDW Plt Count MPV Neut % (Auto) Lymph % (Auto) [place] % (Auto) Eos % (Auto) Baso % (Auto) Neut # (Auto) Lymph # (Auto) [place] # (Auto) Eos # (Auto) Baso # (Auto) PT INR APTT Sodium Potassium Chloride Carbon Dioxide Anion Gap BUN Creatinine Est GFR ( Amer) Est GFR (Non-Af Amer) Random Glucose Calcium Total Bilirubin AST ALT Alkaline Phosphatase Troponin I 0.0540 NT-Pro-B Natriuret Pep Total Protein Albumin Globulin Albumin/Globulin Ratio - EKG Data EKG comments: reviewed J.P. - Imaging and Cardiology Chest x-ray Status: Report reviewed by me (RafaelP.) Assessment & Plan (1) Acute CHF Status: Acute Priority: High (2) Pleural effusion, left Status: Acute Priority: High (3) Hx of CABG Status: Acute Priority: High - Assessment and Plan (Free Text) Plan: Patient is not on acute distress now , O2 NC with good O2 sat ,agree with your management Lasix IV , Cardiology consult. Patient to have CT Chest to better Asses the effusions and pulmonary hall, further recommendations pending review of CT Chest. - Date & Time Date: 10/31/17 Time: 12:40
--- NOTE | 2017-10-31 14:28 | CP.PCM.HP ---
History of Present Illness - History of Present Illness History of Present Illness: This is an 86 y/o female with CAD recent CABG , HTN ,hyperlipidemia admitted for worsening of SOB. Denies any chest pain. She noted progressive leg edema then worsening of SOB hence was brought to ER. She had a recent CABG and bout of NSTEMI and CHF. Currently on Plavix, diuretic and anti HTN. Present on Admission - Present on Admission Any Indicators Present on Admission: No History of DVT/PE: No History of Uncontrolled Diabetes: Yes Urinary Catheter: No Decubitus Ulcer Present: No Review of Systems - Cardiovascular Cardiovascular: Leg Edema - Respiratory Respiratory: Dyspnea Past Patient History - Tetanus Immunizations Tetanus Immunization: Unknown - Past Medical History & Family History Past Medical History?: Yes - Past Social History Smoking Status: Former Smoker - CARDIAC Hx Cardiac Disorders: Yes Hx Hypercholesterolemia: Yes Hx Hypertension: Yes - PULMONARY Hx Respiratory Disorders: Yes Hx Bronchitis: Yes Hx Pneumonia: Yes - NEUROLOGICAL Hx Neurological Disorder: No - HEENT Hx HEENT Problems: No - RENAL Hx Chronic Kidney Disease: No - ENDOCRINE/METABOLIC Hx Endocrine Disorders: No - HEMATOLOGICAL/ONCOLOGICAL Hx Blood Disorders: No - INTEGUMENTARY Hx Dermatological Problems: No - MUSCULOSKELETAL/RHEUMATOLOGICAL Hx Musculoskeletal Disorders: No Hx Falls: No - GASTROINTESTINAL Hx Gastrointestinal Disorders: No - GENITOURINARY/GYNECOLOGICAL Hx Genitourinary Disorders: No - PSYCHIATRIC Hx Psychophysiologic Disorder: No Hx Substance Use: No - SURGICAL HISTORY Hx Surgeries: Yes Hx Coronary Artery Bypass Graft: Yes - ANESTHESIA Hx Anesthesia: Yes Hx Anesthesia Reactions: No Meds Allergies/Adverse Reactions: Allergies Allergy/AdvReac Type Severity Reaction Status Date / Time No Known Allergies Allergy Verified 08/07/17 13:35 Physical Exam - Eye Exam Eye Exam: Normal appearance - ENT Exam ENT Exam: Mucous Membranes Moist - Respiratory Exam Respiratory Exam: Decreased Breath Sounds, Rales - Cardiovascular Exam Cardiovascular Exam: Tachycardia - GI/Abdominal Exam GI & Abdominal Exam: Normal Bowel Sounds - Extremities Exam Extremities exam: Positive for: pedal edema Results - Vital Signs Recent Vital Signs: Last Vital Signs Temp 97.6 F 10/31/17 12:36 Pulse 65 10/31/17 12:36 Resp 18 10/31/17 12:36 BP 145/81 10/31/17 12:36 Pulse Ox 98 10/31/17 12:36 - Labs Result Diagrams: 10/30/17 23:43 10/31/17 01:39 Labs: Laboratory Results - last 24 hr 10/30/17 10/30/17 10/31/17 23:43 23:43 01:39 WBC 10.5 RBC 3.67 L Hgb 10.4 L Hct 30.9 L MCV 84.4 MCH 28.3 MCHC 33.5 RDW 16.7 H Plt Count 290 MPV 9.3 Neut % (Auto) 77.9 H Lymph % (Auto) 13.9 L [place] % (Auto) 5.9 Eos % (Auto) 1.3 Baso % (Auto) 1.0 Neut # (Auto) 8.2 H Lymph # (Auto) 1.5 [place] # (Auto) 0.6 Eos # (Auto) 0.1 Baso # (Auto) 0.1 PT 12.1 INR 1.1 APTT 29.7 Sodium 136 Potassium 4.3 Chloride 90 L Carbon Dioxide 38 H Anion Gap 12 BUN 33 H Creatinine 1.9 H Est GFR ( Amer) 30 Est GFR (Non-Af Amer) 25 Random Glucose 147 H Calcium 9.6 Total Bilirubin 1.0 AST 24 ALT 15 Alkaline Phosphatase 76 Troponin I 0.0560 NT-Pro-B Natriuret Pep 56314 H Total Protein 7.6 Albumin 4.0 Globulin 3.5 Albumin/Globulin Ratio 1.1 10/31/17 08:10 WBC RBC Hgb Hct MCV MCH MCHC RDW Plt Count MPV Neut % (Auto) Lymph % (Auto) [place] % (Auto) Eos % (Auto) Baso % (Auto) Neut # (Auto) Lymph # (Auto) [place] # (Auto) Eos # (Auto) Baso # (Auto) PT INR APTT Sodium Potassium Chloride Carbon Dioxide Anion Gap BUN Creatinine Est GFR ( Amer) Est GFR (Non-Af Amer) Random Glucose Calcium Total Bilirubin AST ALT Alkaline Phosphatase Troponin I 0.0540 NT-Pro-B Natriuret Pep Total Protein Albumin Globulin Albumin/Globulin Ratio Assessment & Plan (1) Acute CHF Status: Acute Priority: High (2) Hx of CABG Status: Acute Priority: High (3) Hypertension Status: Acute (4) Pleural effusion, left Status: Acute Priority: High (5) Diabetes mellitus type 2 in obese Status: Acute - Assessment and Plan (Free Text) Plan: check labs start lasix 40 bid cardiology eval troponin check fluid restriction pulmonary eval
--- NOTE | 2017-10-31 15:47 | CT ---
Date of service: 10/31/2017 PROCEDURE: CT Chest without contrast HISTORY: Pleural effusion , CHF COMPARISON: None available. TECHNIQUE: Contiguous axial images were obtained through the chest without intravenous contrast enhancement. Sagittal and coronal reconstructions were performed. Radiation dose (DLP): 564.4 MGy-cm. This CT exam was performed using one or more of the following dose reduction techniques: Automated exposure control, adjustment of the mA and/or kV according to patient size, and/or use of iterative reconstruction technique. FINDINGS: LUNGS: Pulmonary vascular congestion. Left upper and left lower lobe subsegmental atelectasis. Visualized airway clear. MEDIASTINUM: Descending thoracic aortic aneurysm measuring up to 3.8 cm. No aneurysm. Cardiomegaly. Coronary arterial and valvular calcifications. Prior CABG. Main pulmonary artery unremarkable. No vascular congestion. No lymphadenopathy. PLEURA: Left predominantly simple moderate pleural effusion with partially loculated component along the laterally. Trace right pleural effusion. No pneumothorax. BONES: No fracture. No destructive lesion. UPPER ABDOMEN: Partially imaged cholelithiasis within a contracted gallbladder. OTHER FINDINGS: None. IMPRESSION: Moderate left pleural effusion with partial loculation laterally. Trace right pleural effusion. Descending thoracic aortic aneurysm measuring up to 3.8 cm
[2017-10-31] MEDS ORDERED: ICOSAPENT ETHYL PO SCH (17:00)
--- NOTE | 2017-10-31 18:21 | CARD ---
APPROVED REPORT Date of service: 10/30/2017 EKG Measurement Heart [id number] <Conclusion> Normal sinus rhythm Moderate voltage criteria for LVH, may be normal variant Possible Lateral infarct, age undetermined Abnormal ECG
--- NOTE | 2017-10-31 23:21 | CP.PCM.CON ---
Past Patient History - Tetanus Immunizations Tetanus Immunization: Unknown - Past Medical History & Family History Past Medical History?: Yes - Past Social History Smoking Status: Former Smoker - CARDIAC Hx Cardiac Disorders: Yes Hx Hypercholesterolemia: Yes Hx Hypertension: Yes - PULMONARY Hx Respiratory Disorders: Yes Hx Bronchitis: Yes Hx Pneumonia: Yes - NEUROLOGICAL Hx Neurological Disorder: No - HEENT Hx HEENT Problems: No - RENAL Hx Chronic Kidney Disease: No - ENDOCRINE/METABOLIC Hx Endocrine Disorders: No - HEMATOLOGICAL/ONCOLOGICAL Hx Blood Disorders: No - INTEGUMENTARY Hx Dermatological Problems: No - MUSCULOSKELETAL/RHEUMATOLOGICAL Hx Musculoskeletal Disorders: No Hx Falls: No - GASTROINTESTINAL Hx Gastrointestinal Disorders: No - GENITOURINARY/GYNECOLOGICAL Hx Genitourinary Disorders: No - PSYCHIATRIC Hx Psychophysiologic Disorder: No Hx Substance Use: No - SURGICAL HISTORY Hx Surgeries: Yes Hx Coronary Artery Bypass Graft: Yes - ANESTHESIA Hx Anesthesia: Yes Hx Anesthesia Reactions: No Meds Allergies/Adverse Reactions: Allergies Allergy/AdvReac Type Severity Reaction Status Date / Time No Known Allergies Allergy Verified 08/07/17 13:35 - Medications Medications: Current Medications Alprazolam (Xanax) 0.25 mg PO Q12 PRN PRN Reason: Anxiety Stop: 11/07/17 11:16 Aspirin (Ecotrin) 81 mg PO DAILY [facility] Last Admin: 10/31/17 13:29 Dose: 81 mg Clopidogrel Bisulfate (Plavix) 75 mg PO DAILY [facility] Doxazosin Mesylate (Cardura) 2 mg PO HS [facility] Last Admin: 10/31/17 21:40 Dose: 2 mg Ergocalciferol (Drisdol 50,000 Intl Units Cap) 1 cap PO SUN [facility] Fluticasone Propionate (Flonase) 1 spr REBEKA BID [facility] Last Admin: 10/31/17 17:31 Dose: 1 spr Furosemide (Lasix) 40 mg IV Q12 [facility] Last Admin: 10/31/17 21:40 Dose: 40 mg Meclizine HCl (Antivert) 25 mg PO DAILY PRN PRN Reason: Dizziness Montelukast Sodium (Singulair) 10 mg PO HS [facility] Last Admin: 10/31/17 21:39 Dose: 10 mg Potassium Chloride (K-Dur 20 Meq Er Tab) 20 meq PO DAILY [facility] Last Admin: 10/31/17 10:59 Dose: 20 meq Results - Vital Signs Recent Vital Signs: Last Vital Signs Temp 97.2 F L 10/31/17 19:42 Pulse 76 10/31/17 19:42 Resp 16 10/31/17 19:42 BP 146/91 H 10/31/17 21:40 Pulse Ox 100 10/31/17 19:42 - Labs Result Diagrams: 10/30/17 23:43 10/31/17 01:39 Labs: Laboratory Results - last 24 hr 10/30/17 10/30/17 10/31/17 23:43 23:43 01:39 WBC 10.5 RBC 3.67 L Hgb 10.4 L Hct 30.9 L MCV 84.4 MCH 28.3 MCHC 33.5 RDW 16.7 H Plt Count 290 MPV 9.3 Neut % (Auto) 77.9 H Lymph % (Auto) 13.9 L [place] % (Auto) 5.9 Eos % (Auto) 1.3 Baso % (Auto) 1.0 Neut # (Auto) 8.2 H Lymph # (Auto) 1.5 [place] # (Auto) 0.6 Eos # (Auto) 0.1 Baso # (Auto) 0.1 PT 12.1 INR 1.1 APTT 29.7 Sodium 136 Potassium 4.3 Chloride 90 L Carbon Dioxide 38 H Anion Gap 12 BUN 33 H Creatinine 1.9 H Est GFR ( Amer) 30 Est GFR (Non-Af Amer) 25 Random Glucose 147 H Calcium 9.6 Total Bilirubin 1.0 AST 24 ALT 15 Alkaline Phosphatase 76 Troponin I 0.0560 NT-Pro-B Natriuret Pep 37573 H Total Protein 7.6 Albumin 4.0 Globulin 3.5 Albumin/Globulin Ratio 1.1 10/31/17 10/31/17 08:10 16:01 WBC RBC Hgb Hct MCV MCH MCHC RDW Plt Count MPV Neut % (Auto) Lymph % (Auto) [place] % (Auto) Eos % (Auto) Baso % (Auto) Neut # (Auto) Lymph # (Auto) [place] # (Auto) Eos # (Auto) Baso # (Auto) PT INR APTT Sodium Potassium Chloride Carbon Dioxide Anion Gap BUN Creatinine Est GFR ( Amer) Est GFR (Non-Af Amer) Random Glucose Calcium Total Bilirubin AST ALT Alkaline Phosphatase Troponin I 0.0540 0.0600 NT-Pro-B Natriuret Pep Total Protein Albumin Globulin Albumin/Globulin Ratio
[2017-11-01] MEDS ORDERED: AZILSARTAN MEDOXOMIL 80 MG PO SCH (09:00)
[2017-11-01] MEDS: Potassium Chloride 20 mEq ER Tab PO SCH (10:09)
[2017-11-01] MEDS: Metoprolol Succinate 25 mg XL Tab PO SCH (17:31)
--- NOTE | 2017-11-01 20:26 | CP.PCM.PN ---
Subjective - Date & Time of Evaluation Date of Evaluation: 11/01/17 Time of Evaluation: 18:20 - Subjective Subjective: F/U Pleural effusion. no AD, no SOB with O2NC Objective - Vital Signs/Intake and Output Vital Signs (last 24 hours): Temp Pulse Resp BP Pulse Ox 97.9 F 66 20 128/67 99 11/01/17 19:23 11/01/17 19:23 11/01/17 19:23 11/01/17 19:23 11/01/17 19:23 Intake and Output: 11/01/17 11/02/17 18:59 06:59 Intake Total 1000 Balance 1000 - Medications Medications: Current Medications Alprazolam (Xanax) 0.25 mg PO Q12 PRN PRN Reason: Anxiety Stop: 11/07/17 11:16 Aspirin (Ecotrin) 81 mg PO DAILY [facility] Last Admin: 11/01/17 10:09 Dose: 81 mg Clopidogrel Bisulfate (Plavix) 75 mg PO DAILY [facility] Last Admin: 11/01/17 10:09 Dose: 75 mg Doxazosin Mesylate (Cardura) 2 mg PO HS [facility] Ergocalciferol (Drisdol 50,000 Intl Units Cap) 1 cap PO SUN [facility] Fluticasone Propionate (Flonase) 1 spr REBEKA BID [facility] Last Admin: 11/01/17 17:31 Dose: 1 spr Furosemide (Lasix) 40 mg IV Q12 [facility] Last Admin: 11/01/17 10:10 Dose: 40 mg Meclizine HCl (Antivert) 25 mg PO DAILY PRN PRN Reason: Dizziness Metoprolol Succinate (Toprol Xl) 25 mg PO DAILY [facility] Last Admin: 11/01/17 17:31 Dose: 25 mg Montelukast Sodium (Singulair) 10 mg PO HS [facility] Last Admin: 10/31/17 21:39 Dose: 10 mg Potassium Chloride (K-Dur 20 Meq Er Tab) 20 meq PO DAILY [facility] Last Admin: 11/01/17 10:09 Dose: 20 meq - Labs Labs: 10/30/17 23:43 10/31/17 01:39 PT 12.1 Seconds (9.8-13.1) 10/30/17 23:43 INR 1.1 10/30/17 23:43 APTT 29.7 Seconds (25.6-37.1) 10/30/17 23:43 - Constitutional Appears: No Acute Distress - Head Exam Head Exam: NORMAL INSPECTION - Eye Exam Eye Exam: PERRL - ENT Exam ENT Exam: Normal Exam - Neck Exam Neck Exam: Normal Inspection - Respiratory Exam Respiratory Exam: Decreased Breath Sounds (at bases L>R) Additional comments: Crakles at bases. vocal/tactil fremitus decreased L bese - Cardiovascular Exam Cardiovascular Exam: REGULAR RHYTHM - GI/Abdominal Exam GI & Abdominal Exam: Soft, Normal Bowel Sounds - Extremities Exam Additional comments: legs edema - Back Exam Back Exam: NORMAL INSPECTION - Neurological Exam Neurological Exam: Alert, Oriented x3 Additional comments: No focal motor/sensory deficit. - Psychiatric Exam Psychiatric exam: Normal Affect, Normal Mood - Skin Skin Exam: Warm Assessment and Plan (1) Acute CHF Status: Acute (2) Pleural effusion, left Status: Acute (3) Hx of CABG Status: Acute - Assessment and Plan (Free Text) Plan: CT Chest moderate effusion, partially loculated larerally, pulmonary vascular congestion, Patient on Lasix 40mg IV q 12hs f/u CXR, Cardology f/u
--- NOTE | 2017-11-02 06:54 | CP.PCM.PN ---
Subjective - Date & Time of Evaluation Date of Evaluation: 11/01/17 Time of Evaluation: 11:15 - Subjective Subjective: Patient still has SOB. CT scan showed moderate left pleural effusion and thoracic descending aortic aneurysm Noted less leg edema [place] diuretic proBNP was [id number]. Objective - Vital Signs/Intake and Output Vital Signs (last 24 hours): Temp Pulse Resp BP Pulse Ox 97.4 F L 62 20 128/63 99 11/02/17 04:55 11/02/17 04:55 11/02/17 04:55 11/02/17 04:55 11/02/17 04:55 Intake and Output: 11/01/17 11/02/17 18:59 06:59 Intake Total 1000 Balance 1000 - Medications Medications: Current Medications Alprazolam (Xanax) 0.25 mg PO Q12 PRN PRN Reason: Anxiety Stop: 11/07/17 11:16 Last Admin: 11/01/17 21:55 Dose: 0.25 mg Aspirin (Ecotrin) 81 mg PO DAILY [facility] Last Admin: 11/01/17 10:09 Dose: 81 mg Clopidogrel Bisulfate (Plavix) 75 mg PO DAILY [facility] Last Admin: 11/01/17 10:09 Dose: 75 mg Doxazosin Mesylate (Cardura) 2 mg PO HS [facility] Last Admin: 11/01/17 21:51 Dose: 2 mg Ergocalciferol (Drisdol 50,000 Intl Units Cap) 1 cap PO SUN [facility] Fluticasone Propionate (Flonase) 1 spr REBEKA BID [facility] Last Admin: 11/01/17 17:31 Dose: 1 spr Furosemide (Lasix) 40 mg IV Q12 [facility] Last Admin: 11/01/17 21:40 Dose: 40 mg Meclizine HCl (Antivert) 25 mg PO DAILY PRN PRN Reason: Dizziness Metoprolol Succinate (Toprol Xl) 25 mg PO DAILY [facility] Last Admin: 11/01/17 17:31 Dose: 25 mg Montelukast Sodium (Singulair) 10 mg PO HS [facility] Last Admin: 11/01/17 21:39 Dose: 10 mg Potassium Chloride (K-Dur 20 Meq Er Tab) 20 meq PO DAILY [facility] Last Admin: 11/01/17 10:09 Dose: 20 meq - Labs Labs: 10/30/17 23:43 10/31/17 01:39 PT 12.1 Seconds (9.8-13.1) 10/30/17 23:43 INR 1.1 10/30/17 23:43 APTT 29.7 Seconds (25.6-37.1) 10/30/17 23:43 - Head Exam Head Exam: NORMAL INSPECTION - Eye Exam Eye Exam: Normal appearance - ENT Exam ENT Exam: Mucous Membranes Moist - Respiratory Exam Respiratory Exam: Decreased Breath Sounds - Cardiovascular Exam Cardiovascular Exam: REGULAR RHYTHM - GI/Abdominal Exam GI & Abdominal Exam: Normal Bowel Sounds - Neurological Exam Neurological Exam: Awake, Oriented x3 - Psychiatric Exam Psychiatric exam: Normal Mood Assessment and Plan (1) Pleural effusion, left Status: Acute (2) Acute CHF Status: Acute (3) Hypertension Status: Acute - Assessment and Plan (Free Text) Plan: Cont meds fluid restriction start phys therapy Cont meds cardiology follow up
[2017-11-02 08:54] LABS: HEMOGLOBIN 9.4 g/dL (12.0-16.0); MEAN CELL VOLUME 87.6 fl (81.0-99.0); MEAN CORPUSCULAR HEMOGLOBIN 28.1 pg (27.0-31.0); MEAN CORPUSCULAR HGB CONC 32.1 g/dL (33.0-37.0); RBC 3.35 Mil/uL (3.80-5.20); RED CELL DISTRIBUTION WIDTH 15.2 % (11.5-14.5); WHITE BLOOD COUNT 8.5 K/uL (4.8-10.8)
[2017-11-02 09:21] LABS: TROPONIN I 0.045 ng/mL (0.00-0.120)
[2017-11-02 09:26] LABS: ALB/GLOB RATIO 1.2 (1.0-2.1); ALBUMIN 3.5 g/dL (3.5-5.0); CALCIUM 9.2 mg/dL (8.4-10.2)
--- NOTE | 2017-11-02 09:31 | RAD ---
HISTORY: COMPARISON: 10/31/2017. TECHNIQUE: Chest PA and lateral FINDINGS: LINES AND TUBES: None. LUNG AND PLEURA: There is interval improved aeration in the lungs with improving pulmonary venous congestion. Persistent small right and large left pleural effusions. HEART AND MEDIASTINUM: Mild cardiomegaly. Status post CABG. The hilar and mediastinal contours are within normal limits. SKELETAL STRUCTURES: The bony structures are within normal limits for the patient's age. VISUALIZED UPPER ABDOMEN: Normal. OTHER FINDINGS: None. IMPRESSION: Improving congestive heart failure. Persistent large left pleural effusion.
[2017-11-02] MEDS: Potassium Chloride 20 mEq ER Tab PO SCH (09:41)
[2017-11-02] MEDS: Metoprolol Succinate 25 mg XL Tab PO SCH (09:42)
--- NOTE | 2017-11-02 13:29 | CP.PCM.PN ---
Subjective - Date & Time of Evaluation Date of Evaluation: 11/02/17 Time of Evaluation: 12:30 - Subjective Subjective: F/U Pleural Effusion no SOB,no C/P, on O2 N/C Objective - Vital Signs/Intake and Output Vital Signs (last 24 hours): Temp Pulse Resp BP Pulse Ox 97.9 F 59 L 18 149/82 100 11/02/17 12:34 11/02/17 12:34 11/02/17 12:34 11/02/17 12:34 11/02/17 12:34 - Medications Medications: Current Medications Alprazolam (Xanax) 0.25 mg PO Q12 PRN PRN Reason: Anxiety Stop: 11/07/17 11:16 Last Admin: 11/01/17 21:55 Dose: 0.25 mg Aspirin (Ecotrin) 81 mg PO DAILY [facility] Last Admin: 11/02/17 09:42 Dose: 81 mg Clopidogrel Bisulfate (Plavix) 75 mg PO DAILY [facility] Last Admin: 11/02/17 09:42 Dose: 75 mg Doxazosin Mesylate (Cardura) 2 mg PO HS [facility] Last Admin: 11/01/17 21:51 Dose: 2 mg Ergocalciferol (Drisdol 50,000 Intl Units Cap) 1 cap PO SUN [facility] Fluticasone Propionate (Flonase) 1 spr REBEKA BID [facility] Last Admin: 11/02/17 09:38 Dose: 1 spr Furosemide (Lasix) 40 mg IV Q12 [facility] Last Admin: 11/02/17 09:42 Dose: 40 mg Meclizine HCl (Antivert) 25 mg PO DAILY PRN PRN Reason: Dizziness Metoprolol Succinate (Toprol Xl) 25 mg PO DAILY [facility] Last Admin: 11/02/17 09:42 Dose: 25 mg Montelukast Sodium (Singulair) 10 mg PO HS [facility] Last Admin: 11/01/17 21:39 Dose: 10 mg Potassium Chloride (K-Dur 20 Meq Er Tab) 20 meq PO DAILY [facility] Last Admin: 11/02/17 09:41 Dose: 20 meq - Labs Labs: 11/02/17 08:42 11/02/17 08:42 PT 12.1 Seconds (9.8-13.1) 10/30/17 23:43 INR 1.1 10/30/17 23:43 APTT 29.7 Seconds (25.6-37.1) 10/30/17 23:43 - Constitutional Appears: No Acute Distress - Head Exam Head Exam: NORMAL INSPECTION - Eye Exam Eye Exam: PERRL - ENT Exam ENT Exam: Normal Exam - Neck Exam Neck Exam: Normal Inspection - Respiratory Exam Respiratory Exam: Decreased Breath Sounds (at bases L>R) Additional comments: Crackles at bases. Vocal/tactile fremitus decreased L base - Cardiovascular Exam Cardiovascular Exam: REGULAR RHYTHM - GI/Abdominal Exam GI & Abdominal Exam: Soft, Normal Bowel Sounds - Extremities Exam Additional comments: Legs edema - Back Exam Back Exam: NORMAL INSPECTION - Neurological Exam Neurological Exam: Alert, Oriented x3 Additional comments: No focal motor/sensory deficit. - Psychiatric Exam Psychiatric exam: Normal Affect, Normal Mood - Skin Skin Exam: Warm Assessment and Plan (1) Pleural effusion, left Status: Acute (2) Acute CHF Status: Acute (3) Hx of CABG Status: Acute - Assessment and Plan (Free Text) Plan: CXR persistant large L Pleural effusion, improved CHF, IR consult for L Thoracentesis now, discussed. with Dr Plascencia and He agrees
--- NOTE | 2017-11-02 13:38 | CP.PCM.PN ---
<Geno Marlow - Last Filed: 11/02/17 18:21> Subjective - Date & Time of Evaluation Date of Evaluation: 11/02/17 Time of Evaluation: 09:00 - Subjective Subjective: Pt seen this morning at bedside; no acute events overnight. She reports legs are much less swollen after medication, and reports she is able to breathe better than before. No acute chest pain, no worsening shortness of breath or other acute symptoms. Objective - Vital Signs/Intake and Output Vital Signs (last 24 hours): Temp Pulse Resp BP Pulse Ox 97.9 F 59 L 18 149/82 100 11/02/17 12:34 11/02/17 12:34 11/02/17 12:34 11/02/17 12:34 11/02/17 12:34 - Medications Medications: Current Medications Alprazolam (Xanax) 0.25 mg PO Q12 PRN PRN Reason: Anxiety Stop: 11/07/17 11:16 Last Admin: 11/01/17 21:55 Dose: 0.25 mg Aspirin (Ecotrin) 81 mg PO DAILY [facility] Last Admin: 11/02/17 09:42 Dose: 81 mg Clopidogrel Bisulfate (Plavix) 75 mg PO DAILY [facility] Last Admin: 11/02/17 09:42 Dose: 75 mg Doxazosin Mesylate (Cardura) 2 mg PO HS [facility] Last Admin: 11/01/17 21:51 Dose: 2 mg Ergocalciferol (Drisdol 50,000 Intl Units Cap) 1 cap PO SUN [facility] Fluticasone Propionate (Flonase) 1 spr REBEKA BID [facility] Last Admin: 11/02/17 09:38 Dose: 1 spr Furosemide (Lasix) 40 mg IV Q12 [facility] Last Admin: 11/02/17 09:42 Dose: 40 mg Meclizine HCl (Antivert) 25 mg PO DAILY PRN PRN Reason: Dizziness Metoprolol Succinate (Toprol Xl) 25 mg PO DAILY [facility] Last Admin: 11/02/17 09:42 Dose: 25 mg Montelukast Sodium (Singulair) 10 mg PO HS [facility] Last Admin: 11/01/17 21:39 Dose: 10 mg Potassium Chloride (K-Dur 20 Meq Er Tab) 20 meq PO DAILY [facility] Last Admin: 11/02/17 09:41 Dose: 20 meq - Labs Labs: 11/02/17 08:42 08/14/18 08:42 PT 12.1 Seconds (9.8-13.1) 10/30/17 23:43 INR 1.1 10/30/17 23:43 APTT 29.7 Seconds (25.6-37.1) 10/30/17 23:43 - Constitutional Appears: No Acute Distress, Chronically Ill - Eye Exam Eye Exam: Normal appearance - Respiratory Exam Respiratory Exam: Decreased Breath Sounds, NORMAL BREATHING PATTERN - Cardiovascular Exam Cardiovascular Exam: REGULAR RHYTHM, +S1, +S2 - GI/Abdominal Exam GI & Abdominal Exam: Soft. absent: Tenderness - Extremities Exam Extremities Exam: absent: Calf Tenderness Additional comments: 2+ pitting edema bilaterally - Neurological Exam Neurological Exam: Alert, Oriented x3 - Skin Skin Exam: Dry, Warm Assessment and Plan (1) Pleural effusion, left Status: Acute (2) Hypertension Status: Chronic (3) Acute CHF Status: Acute - Assessment and Plan (Free Text) Plan: - pulmonology consult - Dr. Marie - cardiology consult- Dr. Perez - c/w lasix 40 mg BID and fluid restriction - probnp was 75k on admission, now 50k - encourage OOBTC and participation with physical therapy - heart healthy diet - rest of plan as ordered <Jean Carlos Miles - Last Filed: 11/03/17 07:55> Objective - Vital Signs/Intake and Output Vital Signs (last 24 hours): Temp Pulse Resp BP Pulse Ox 97.9 F 85 20 143/79 98 11/03/17 04:49 11/03/17 04:49 11/03/17 04:49 11/03/17 04:49 11/03/17 04:49 Intake and Output: 11/03/17 11/03/17 06:59 18:59 Intake Total 200 Output Total 400 Balance -200 - Medications Medications: Current Medications Acetaminophen (Tylenol 325mg Tab) 650 mg PO Q6 PRN PRN Reason: Pain, Mild (1-3) Last Admin: 11/02/17 20:41 Dose: 650 mg Alprazolam (Xanax) 0.25 mg PO Q12 PRN PRN Reason: Anxiety Stop: 11/07/17 11:16 Last Admin: 11/02/17 21:59 Dose: 0.25 mg Aspirin (Ecotrin) 81 mg PO DAILY [facility] Last Admin: 11/02/17 09:42 Dose: 81 mg Clopidogrel Bisulfate (Plavix) 75 mg PO DAILY [facility] Last Admin: 11/02/17 09:42 Dose: 75 mg Doxazosin Mesylate (Cardura) 2 mg PO HS [facility] Last Admin: 11/02/17 22:00 Dose: 2 mg Ergocalciferol (Drisdol 50,000 Intl Units Cap) 1 cap PO SUN [facility] Fluticasone Propionate (Flonase) 1 spr REBEKA BID [facility] Last Admin: 11/02/17 17:21 Dose: 1 spr Furosemide (Lasix) 40 mg IV Q12 [facility] Last Admin: 11/02/17 20:42 Dose: 40 mg Ipratropium [place] (Atrovent) 0.5 mg IH TID [facility] Last Admin: 11/03/17 07:48 Dose: 0.5 mg Levalbuterol HCl (Xopenex) 0.63 mg INH Q6 [facility] Last Admin: 11/03/17 07:48 Dose: 0.63 mg Meclizine HCl (Antivert) 25 mg PO DAILY PRN PRN Reason: Dizziness Metoprolol Succinate (Toprol Xl) 25 mg PO DAILY [facility] Last Admin: 11/02/17 09:42 Dose: 25 mg Montelukast Sodium (Singulair) 10 mg PO HS [facility] Last Admin: 11/02/17 21:56 Dose: 10 mg Potassium Chloride (K-Dur 20 Meq Er Tab) 20 meq PO DAILY [facility] Last Admin: 11/02/17 09:41 Dose: 20 meq - Labs Labs: 11/03/17 04:20 11/03/17 04:20 PT 12.1 Seconds (9.8-13.1) 10/30/17 23:43 INR 1.1 10/30/17 23:43 APTT 29.7 Seconds (25.6-37.1) 10/30/17 23:43 Assessment and Plan (1) Acute CHF Status: Acute (2) Hx of CABG Status: Acute (3) Hypertension Status: Chronic (4) Pleural effusion, left Status: Acute (5) Diabetes mellitus type 2 in obese Status: Acute - Assessment and Plan (Free Text) Plan: I was present during evaluation and discussed with Dr Vilma sheffield plans of care and tx. Jean Carlos Miles M.D.
[2017-11-02] MEDS ORDERED: Lidocaine 1% 5ml Abboject IV ONE (13:44)
[2017-11-02 14:28] LABS: BODY FLUID TYPE PLEURAL
--- NOTE | 2017-11-02 14:28 | PCM.SURG1 ---
Surgeon's Initial Post Op Note - Surgeon's Notes Surgeon: Stalin Plascencia MD Drug Abuse Resistance Education Officer: NONE Type of Anesthesia: Local Pre-Operative Diagnosis: Left pleural effusion Operative Findings: US showed moderate left effusion Post-Operative Diagnosis: Left pleura effusion Operation Performed: US guided left thoracentesis Specimen/Specimens Removed: 1000 ml of yaron colored fluid Estimated Blood Loss: EBL {In ML}: 0 Blood Products Given: N/A Drains Used: No Drains Post-Op Condition: Fair Date of Surgery/Procedure: 11/02/17 Time of Surgery/Procedure: 14:20
[2017-11-02 14:41] LABS: GLUCOSE,BODY FLUID 129 mg/dL (NONE ESTABLISHED)
[2017-11-02 15:12] LABS: BF GROSS APPEARANCE CLOUDY (CLEAR)
[2017-11-02 15:13] LABS: BODY FLUID MONO/MACROPHAGE 7 % (0-0); BODY FLUID TOTAL COUNT 100 (0-0)
--- NOTE | 2017-11-02 15:36 | RAD ---
Date of service: 11/02/2017 PROCEDURE: CHEST RADIOGRAPH, 1 VIEW HISTORY: Status post left thoracentesis Relevant interventional procedure(s): November 02, 2017. COMPARISON: 11/02/2017. Preprocedure study performed 09:03. FINDINGS: LUNGS: Substantial improvement in aeration of the left lung following thoracentesis. Prominent pulmonary bronchovascular markings which are likely due to technique and poor inspiratory effort. PLEURA: Marked decrease in left pleural effusion. No pneumothorax. CARDIOVASCULAR: Cardiomegaly. OSSEOUS STRUCTURES: No significant abnormalities. VISUALIZED UPPER ABDOMEN: Normal. OTHER FINDINGS: None. IMPRESSION: No pneumothorax following left thoracentesis. Substantial reduction in left pleural effusion. Commensurate reinflation of the left lung.
--- NOTE | 2017-11-02 17:39 | CP.PCM.CON ---
History of Present Illness - History of Present Illness History of Present Illness: Consultation for CHF HPI: Review of Systems - Review of Systems Systems not reviewed;Unavailable: Acuity of Condition - Constitutional Constitutional: As Per HPI - EENT Eyes: As Per HPI Ears: As Per HPI Nose/Mouth/Throat: As Per HPI - Breasts Breasts: As Per HPI - Cardiovascular Cardiovascular: As Per HPI - Respiratory Respiratory: As Per HPI - Gastrointestinal Gastrointestinal: As Per HPI - Genitourinary Genitourinary: As Per HPI - Reproductive: Female Reproductive:Female: As Per HPI - Menstruation Menstruation: As Per HPI - Musculoskeletal Musculoskeletal: As Per HPI - Integumentary Integumentary: As Per HPI - Neurological Neurological: As Per HPI - Psychiatric Psychiatric: As Per HPI - Endocrine Endocrine: As Per HPI - Hematologic/Lymphatic Hematologic: As Per HPI Past Patient History - Tetanus Immunizations Tetanus Immunization: Unknown - Past Medical History & Family History Past Medical History?: Yes - Past Social History Smoking Status: Former Smoker Alcohol: None Drugs: Denies Home Situation {Lives}: With Family - CARDIAC Hx Cardiac Disorders: Yes Hx Congestive Heart Failure: Yes Hx Hypercholesterolemia: Yes Hx Hypertension: Yes - PULMONARY Hx Respiratory Disorders: Yes Hx Bronchitis: Yes Hx Pneumonia: Yes - NEUROLOGICAL Hx Neurological Disorder: No - HEENT Hx HEENT Problems: No - RENAL Hx Chronic Kidney Disease: No - ENDOCRINE/METABOLIC Hx Endocrine Disorders: No - HEMATOLOGICAL/ONCOLOGICAL Hx Blood Disorders: No - INTEGUMENTARY Hx Dermatological Problems: No - MUSCULOSKELETAL/RHEUMATOLOGICAL Hx Musculoskeletal Disorders: No Hx Falls: No - GASTROINTESTINAL Hx Gastrointestinal Disorders: No - GENITOURINARY/GYNECOLOGICAL Hx Genitourinary Disorders: No - PSYCHIATRIC Hx Psychophysiologic Disorder: Yes Hx Anxiety: Yes Hx Substance Use: No - SURGICAL HISTORY Hx Surgeries: Yes Hx Coronary Artery Bypass Graft: Yes - ANESTHESIA Hx Anesthesia: Yes Hx Anesthesia Reactions: No Meds Allergies/Adverse Reactions: Allergies Allergy/AdvReac Type Severity Reaction Status Date / Time No Known Allergies Allergy Verified 08/07/17 13:35 - Medications Medications: Current Medications Alprazolam (Xanax) 0.25 mg PO Q12 PRN PRN Reason: Anxiety Stop: 11/07/17 11:16 Last Admin: 11/01/17 21:55 Dose: 0.25 mg Aspirin (Ecotrin) 81 mg PO DAILY [facility] Last Admin: 08/14/18 09:42 Dose: 81 mg Clopidogrel Bisulfate (Plavix) 75 mg PO DAILY [facility] Last Admin: 11/02/17 09:42 Dose: 75 mg Doxazosin Mesylate (Cardura) 2 mg PO HS [facility] Last Admin: 11/01/17 21:51 Dose: 2 mg Ergocalciferol (Drisdol 50,000 Intl Units Cap) 1 cap PO SUN [facility] Fluticasone Propionate (Flonase) 1 spr REBEKA BID [facility] Last Admin: 11/02/17 17:21 Dose: 1 spr Furosemide (Lasix) 40 mg IV Q12 [facility] Last Admin: 11/02/17 09:42 Dose: 40 mg Meclizine HCl (Antivert) 25 mg PO DAILY PRN PRN Reason: Dizziness Metoprolol Succinate (Toprol Xl) 25 mg PO DAILY [facility] Last Admin: 11/02/17 09:42 Dose: 25 mg Montelukast Sodium (Singulair) 10 mg PO HS [facility] Last Admin: 11/01/17 21:39 Dose: 10 mg Potassium Chloride (K-Dur 20 Meq Er Tab) 20 meq PO DAILY [facility] Last Admin: 11/02/17 09:41 Dose: 20 meq Physical Exam - Constitutional Appears: Well - Head Exam Head Exam: ATRAUMATIC, NORMAL INSPECTION, NORMOCEPHALIC - Eye Exam Eye Exam: EOMI, Normal appearance, PERRL Pupil Exam: NORMAL ACCOMODATION, PERRL - ENT Exam ENT Exam: Mucous Membranes Moist, Normal Exam - Neck Exam Neck exam: Positive for: Normal Inspection - Respiratory Exam Respiratory Exam: Rales, NORMAL BREATHING PATTERN - Cardiovascular Exam Cardiovascular Exam: REGULAR RHYTHM, RRR, +S1, +S2, Systolic Murmur - GI/Abdominal Exam GI & Abdominal Exam: Normal Bowel Sounds, Soft. absent: Tenderness - Extremities Exam Extremities exam: Positive for: pedal edema - Back Exam Back exam: NORMAL INSPECTION - Neurological Exam Neurological exam: Alert, CN II-XII Intact, Normal Gait, Oriented x3, Reflexes Normal - Psychiatric Exam Psychiatric exam: Normal Affect, Normal Mood - Skin Skin Exam: Dry, Intact, Normal Color, Warm Results - Vital Signs Recent Vital Signs: Last Vital Signs Temp 97.6 F 11/02/17 15:39 Pulse 67 11/02/17 15:39 Resp 20 11/02/17 15:39 BP 124/72 11/02/17 15:39 Pulse Ox 96 11/02/17 15:39 - Labs Result Diagrams: 11/02/17 08:42 11/02/17 15:56 Labs: Laboratory Results - last 24 hr 11/02/17 11/02/17 11/02/17 08:42 08:42 08:42 WBC 8.5 RBC 3.35 L Hgb 9.4 L Hct 29.3 L MCV 87.6 D MCH 28.1 MCHC 32.1 L RDW 15.2 H Plt Count 213 Sodium 139 Potassium 4.3 Chloride 90 L Carbon Dioxide 40 H* Anion Gap 13 BUN 39 H Creatinine 1.9 H Est GFR ( Amer) 30 Est GFR (Non-Af Amer) 25 Random Glucose 126 H Hemoglobin A1c 5.6 Calcium 9.2 Total Bilirubin 0.7 AST 23 ALT 19 Alkaline Phosphatase 61 Lactate Dehydrogenase Troponin I 0.0450 NT-Pro-B Natriuret Pep 46241 H Total Protein 6.5 Albumin 3.5 Globulin 3.0 Albumin/Globulin Ratio 1.2 Triglycerides 113 Cholesterol 129 LDL Cholesterol Direct 56 HDL Cholesterol 41 Amylase TSH 3rd Generation 1.73 Fluid Source Fluid Appearance Fluid WBC Fluid RBC Fluid Tot Cell Count Fluid Neutrophils Fluid Lymphocytes Fld Monocyte/Macrophag Fluid Glucose Fluid Total Protein Fluid LDH Fluid Amylase Fluid Comment 11/02/17 11/02/17 11/02/17 14:20 14:20 14:20 WBC RBC Hgb Hct MCV MCH MCHC RDW Plt Count Sodium Potassium Chloride Carbon Dioxide Anion Gap BUN Creatinine Est GFR ( Amer) Est GFR (Non-Af Amer) Random Glucose Hemoglobin A1c Calcium Total Bilirubin AST ALT Alkaline Phosphatase Lactate Dehydrogenase Troponin I NT-Pro-B Natriuret Pep Total Protein Albumin Globulin Albumin/Globulin Ratio Triglycerides Cholesterol LDL Cholesterol Direct HDL Cholesterol Amylase TSH 3rd Generation Fluid Source Pleural Fluid Appearance Cloudy Fluid WBC 1152.0 H Fluid RBC 2534.0 H Fluid Tot Cell Count 100 H Fluid Neutrophils 9.0 H Fluid Lymphocytes 77.0 H Fld Monocyte/Macrophag 7 H Fluid Glucose 129 Fluid Total Protein 3.0 Fluid LDH 224 Fluid Amylase 34 Fluid Comment Slightly bloody 11/02/17 15:56 WBC RBC Hgb Hct MCV MCH MCHC RDW Plt Count Sodium Potassium Chloride Carbon Dioxide Anion Gap BUN Creatinine Est GFR ( Amer) Est GFR (Non-Af Amer) Random Glucose 123 H Hemoglobin A1c Calcium Total Bilirubin AST ALT Alkaline Phosphatase Lactate Dehydrogenase 525 Troponin I NT-Pro-B Natriuret Pep Total Protein 6.5 Albumin Globulin Albumin/Globulin Ratio Triglycerides Cholesterol LDL Cholesterol Direct HDL Cholesterol Amylase 103 TSH 3rd Generation Fluid Source Fluid Appearance Fluid WBC Fluid RBC Fluid Tot Cell Count Fluid Neutrophils Fluid Lymphocytes Fld Monocyte/Macrophag Fluid Glucose Fluid Total Protein Fluid LDH Fluid Amylase Fluid Comment Assessment & Plan (1) Dyspnea Status: Acute (2) Hx of CABG Status: Acute Priority: High (3) Hypertension Status: Acute (4) Pleural effusion, left Status: Acute Priority: High (5) Acute CHF Status: Acute Priority: High
--- NOTE | 2017-11-02 17:40 | CP.PCM.PN ---
Subjective - Date & Time of Evaluation Date of Evaluation: 11/02/17 Time of Evaluation: 17:40 - Subjective Subjective: LE edema improving Objective - Vital Signs/Intake and Output Vital Signs (last 24 hours): Temp Pulse Resp BP Pulse Ox 97.6 F 67 20 124/72 96 11/02/17 15:39 11/02/17 15:39 11/02/17 15:39 11/02/17 15:39 11/02/17 15:39 - Medications Medications: Current Medications Alprazolam (Xanax) 0.25 mg PO Q12 PRN PRN Reason: Anxiety Stop: 11/07/17 11:16 Last Admin: 11/01/17 21:55 Dose: 0.25 mg Aspirin (Ecotrin) 81 mg PO DAILY [facility] Last Admin: 11/02/17 09:42 Dose: 81 mg Clopidogrel Bisulfate (Plavix) 75 mg PO DAILY [facility] Last Admin: 11/02/17 09:42 Dose: 75 mg Doxazosin Mesylate (Cardura) 2 mg PO HS [facility] Last Admin: 11/01/17 21:51 Dose: 2 mg Ergocalciferol (Drisdol 50,000 Intl Units Cap) 1 cap PO SUN [facility] Fluticasone Propionate (Flonase) 1 spr REBEKA BID [facility] Last Admin: 11/02/17 17:21 Dose: 1 spr Furosemide (Lasix) 40 mg IV Q12 [facility] Last Admin: 11/02/17 09:42 Dose: 40 mg Meclizine HCl (Antivert) 25 mg PO DAILY PRN PRN Reason: Dizziness Metoprolol Succinate (Toprol Xl) 25 mg PO DAILY [facility] Last Admin: 11/02/17 09:42 Dose: 25 mg Montelukast Sodium (Singulair) 10 mg PO HS [facility] Last Admin: 11/01/17 21:39 Dose: 10 mg Potassium Chloride (K-Dur 20 Meq Er Tab) 20 meq PO DAILY [facility] Last Admin: 11/02/17 09:41 Dose: 20 meq - Labs Labs: 11/02/17 08:42 11/02/17 15:56 PT 12.1 Seconds (9.8-13.1) 10/30/17 23:43 INR 1.1 10/30/17 23:43 APTT 29.7 Seconds (25.6-37.1) 10/30/17 23:43 - Constitutional Appears: Well - Head Exam Head Exam: ATRAUMATIC, NORMAL INSPECTION, NORMOCEPHALIC - Eye Exam Eye Exam: EOMI, Normal appearance, PERRL Pupil Exam: NORMAL ACCOMODATION, PERRL - ENT Exam ENT Exam: Mucous Membranes Moist, Normal Exam - Neck Exam Neck Exam: Full ROM, Normal Inspection. absent: Lymphadenopathy - Respiratory Exam Respiratory Exam: Clear to Ausculation Bilateral, Rales, NORMAL BREATHING PATTERN - Cardiovascular Exam Cardiovascular Exam: REGULAR RHYTHM, +S1, +S2, Murmur - GI/Abdominal Exam GI & Abdominal Exam: Soft, Normal Bowel Sounds. absent: Tenderness - Extremities Exam Extremities Exam: Full ROM, Normal Capillary Refill, Normal Inspection. absent : Joint Swelling, Pedal Edema - Back Exam Back Exam: NORMAL INSPECTION - Neurological Exam Neurological Exam: Alert, Awake, CN II-XII Intact, Normal Gait, Oriented x3 - Psychiatric Exam Psychiatric exam: Normal Affect, Normal Mood - Skin Skin Exam: Dry, Intact, Normal Color, Warm Assessment and Plan (1) Dyspnea Status: Acute (2) Hx of CABG Status: Acute (3) Hypertension Status: Acute (4) Pleural effusion, left Status: Acute (5) Acute CHF Status: Acute
[2017-11-02] MEDS: Levalbuterol 0.63 MG/3 ML Inhal Soln UD INH SCH (21:15)
[2017-11-03] MEDS: Levalbuterol 0.63 MG/3 ML Inhal Soln UD INH SCH ×5 (05:28→19:07)
[2017-11-03 05:36] LABS: HEMOGLOBIN 9.6 g/dL (12.0-16.0); MEAN CELL VOLUME 87.5 fl (81.0-99.0); MEAN CORPUSCULAR HEMOGLOBIN 28.6 pg (27.0-31.0); MEAN CORPUSCULAR HGB CONC 32.8 g/dL (33.0-37.0); RBC 3.36 Mil/uL (3.80-5.20); RED CELL DISTRIBUTION WIDTH 15.7 % (11.5-14.5); WHITE BLOOD COUNT 8.7 K/uL (4.8-10.8)
[2017-11-03 05:59] LABS: ALB/GLOB RATIO 1.1 (1.0-2.1); ALBUMIN 3.3 g/dL (3.5-5.0); CALCIUM 9.1 mg/dL (8.4-10.2)
[2017-11-03] MEDS: Ipratropium 0.02% Inhal Soln (0.5 mg/2.5 ml) UD IH SCH ×4 (07:48→19:07)
[2017-11-03] MEDS: Potassium Chloride 20 mEq ER Tab PO SCH (09:07)
[2017-11-03] MEDS: Metoprolol Succinate 25 mg XL Tab PO SCH (09:07)
--- NOTE | 2017-11-03 13:05 | US ---
PROCEDURE: Date of procedure: 11/02/2017 Procedure: 1. Ultrasound-guided left thoracentesis, CPT 25554 Medications: 6cc 1% Lidocaine HISTORY: Left pleural effusion, shortness of breath TECHNIQUE: Following informed consent ,the Patients' left chest was marked. Procedure time-out was called, and the patient was placed in the sitting position and limited ultrasound showed a large left effusion. The patient's left back was prepped and draped in the usual sterile fashion. After the skin was anesthetized with lidocaine, a drainage catheter was advanced under ultrasound guidance into the pleural space. Ultrasound-guided thoracentesis was performed. A total of 1000 cubic centimeters of straw-colored fluid removed without complication. A Xeroform dressing was applied. IMPRESSION: Ultrasound guided left thoracentesis. There were no immediate complications.
--- NOTE | 2017-11-03 15:06 | CP.PCM.PN ---
Subjective - Date & Time of Evaluation Date of Evaluation: 11/03/17 Time of Evaluation: 11:30 - Subjective Subjective: F/U Pleural Effusion. no SOB , no C/P Objective - Vital Signs/Intake and Output Vital Signs (last 24 hours): Temp Pulse Resp BP Pulse Ox 97.9 F 68 18 138/66 97 11/03/17 12:22 11/03/17 12:22 11/03/17 12:22 11/03/17 12:22 11/03/17 12:22 Intake and Output: 11/03/17 11/03/17 06:59 18:59 Intake Total 200 Output Total 400 Balance -200 - Medications Medications: Current Medications Acetaminophen (Tylenol 325mg Tab) 650 mg PO Q6 PRN PRN Reason: Pain, Mild (1-3) Last Admin: 11/02/17 20:41 Dose: 650 mg Alprazolam (Xanax) 0.25 mg PO Q12 PRN PRN Reason: Anxiety Stop: 11/07/17 11:16 Last Admin: 11/02/17 21:59 Dose: 0.25 mg Aspirin (Ecotrin) 81 mg PO DAILY [facility] Last Admin: 11/03/17 09:07 Dose: 81 mg Clopidogrel Bisulfate (Plavix) 75 mg PO DAILY [facility] Last Admin: 11/03/17 09:07 Dose: 75 mg Doxazosin Mesylate (Cardura) 2 mg PO HS [facility] Last Admin: 11/02/17 22:00 Dose: 2 mg Ergocalciferol (Drisdol 50,000 Intl Units Cap) 1 cap PO SUN [facility] Fluticasone Propionate (Flonase) 1 spr REBEKA BID [facility] Last Admin: 11/03/17 09:06 Dose: 1 spr Furosemide (Lasix) 40 mg IV Q12 [facility] Last Admin: 11/03/17 09:06 Dose: 40 mg Ipratropium [place] (Atrovent) 0.5 mg IH TID [facility] Last Admin: 11/03/17 13:28 Dose: Not Given Levalbuterol HCl (Xopenex) 0.63 mg INH Q6 [facility] Last Admin: 11/03/17 13:29 Dose: Not Given Meclizine HCl (Antivert) 25 mg PO DAILY PRN PRN Reason: Dizziness Metoprolol Succinate (Toprol Xl) 25 mg PO DAILY [facility] Last Admin: 11/03/17 09:07 Dose: 25 mg Montelukast Sodium (Singulair) 10 mg PO HS [facility] Last Admin: 11/02/17 21:56 Dose: 10 mg Potassium Chloride (K-Dur 20 Meq Er Tab) 20 meq PO DAILY [facility] Last Admin: 11/03/17 09:07 Dose: 20 meq Sildenafil Citrate (Revatio) 20 mg PO TID [facility] - Labs Labs: 11/03/17 04:20 11/03/17 04:20 PT 12.1 Seconds (9.8-13.1) 10/30/17 23:43 INR 1.1 10/30/17 23:43 APTT 29.7 Seconds (25.6-37.1) 10/30/17 23:43 - Constitutional Appears: No Acute Distress - Head Exam Head Exam: NORMAL INSPECTION - Eye Exam Eye Exam: PERRL - ENT Exam ENT Exam: Normal Exam - Neck Exam Neck Exam: Normal Inspection - Respiratory Exam Respiratory Exam: Decreased Breath Sounds (at bases L>R) Additional comments: Crakles at bases. Vocal/tactile fremitus less decreased at L base - Cardiovascular Exam Cardiovascular Exam: REGULAR RHYTHM - GI/Abdominal Exam GI & Abdominal Exam: Soft, Normal Bowel Sounds - Extremities Exam Additional comments: decreased leg edema - Back Exam Back Exam: NORMAL INSPECTION - Neurological Exam Neurological Exam: Alert, Oriented x3 Additional comments: No focal motor/sensory deficit. - Psychiatric Exam Psychiatric exam: Normal Affect, Normal Mood - Skin Skin Exam: Warm Assessment and Plan (1) Pleural effusion, left Status: Acute (2) Acute CHF Status: Acute (3) Hx of CABG Status: Acute - Assessment and Plan (Free Text) Plan: improved after L Thoracentesis 1000cc yesterday, continue Lasix and current Tx
--- NOTE | 2017-11-03 15:53 | CP.PCM.PN ---
Subjective - Date & Time of Evaluation Date of Evaluation: 11/03/17 Time of Evaluation: 10:30 - Subjective Subjective: Pt seen/evaluated at bedside; sitting comfortably in chair; still does not want to do PT, states she is too tired. Lower extremity edema improving. s/p thoracocentesis yesterday; 1000 ml drained Objective - Vital Signs/Intake and Output Vital Signs (last 24 hours): Temp Pulse Resp BP Pulse Ox 97.9 F 68 18 138/66 97 11/03/17 12:22 11/03/17 12:22 11/03/17 12:22 11/03/17 12:22 11/03/17 12:22 Intake and Output: 11/03/17 11/03/17 06:59 18:59 Intake Total 200 Output Total 400 Balance -200 - Medications Medications: Current Medications Acetaminophen (Tylenol 325mg Tab) 650 mg PO Q6 PRN PRN Reason: Pain, Mild (1-3) Last Admin: 11/02/17 20:41 Dose: 650 mg Alprazolam (Xanax) 0.25 mg PO Q12 PRN PRN Reason: Anxiety Stop: 11/07/17 11:16 Last Admin: 11/02/17 21:59 Dose: 0.25 mg Aspirin (Ecotrin) 81 mg PO DAILY [facility] Last Admin: 11/03/17 09:07 Dose: 81 mg Clopidogrel Bisulfate (Plavix) 75 mg PO DAILY [facility] Last Admin: 11/03/17 09:07 Dose: 75 mg Doxazosin Mesylate (Cardura) 2 mg PO HS [facility] Last Admin: 11/02/17 22:00 Dose: 2 mg Ergocalciferol (Drisdol 50,000 Intl Units Cap) 1 cap PO SUN [facility] Fluticasone Propionate (Flonase) 1 spr REBEKA BID [facility] Last Admin: 11/03/17 09:06 Dose: 1 spr Furosemide (Lasix) 40 mg IV Q12 [facility] Last Admin: 11/03/17 09:06 Dose: 40 mg Ipratropium [place] (Atrovent) 0.5 mg IH TID [facility] Last Admin: 11/03/17 13:28 Dose: Not Given Levalbuterol HCl (Xopenex) 0.63 mg INH Q6 [facility] Last Admin: 11/03/17 13:29 Dose: Not Given Meclizine HCl (Antivert) 25 mg PO DAILY PRN PRN Reason: Dizziness Metoprolol Succinate (Toprol Xl) 25 mg PO DAILY [facility] Last Admin: 11/03/17 09:07 Dose: 25 mg Montelukast Sodium (Singulair) 10 mg PO HS [facility] Last Admin: 11/02/17 21:56 Dose: 10 mg Potassium Chloride (K-Dur 20 Meq Er Tab) 20 meq PO DAILY [facility] Last Admin: 11/03/17 09:07 Dose: 20 meq Sildenafil Citrate (Revatio) 20 mg PO TID [facility] - Labs Labs: 11/03/17 04:20 11/03/17 04:20 PT 12.1 Seconds (9.8-13.1) 10/30/17 23:43 INR 1.1 10/30/17 23:43 APTT 29.7 Seconds (25.6-37.1) 10/30/17 23:43 - Constitutional Appears: No Acute Distress, Chronically Ill - Respiratory Exam Respiratory Exam: Decreased Breath Sounds, NORMAL BREATHING PATTERN - Cardiovascular Exam Cardiovascular Exam: REGULAR RHYTHM - GI/Abdominal Exam GI & Abdominal Exam: Soft Additional comments: obese - Extremities Exam Extremities Exam: Pedal Edema. absent: Calf Tenderness Additional comments: LE edema, 1+ pitting - Neurological Exam Neurological Exam: Alert, Awake, Oriented x3 - Skin Skin Exam: Normal Color, Warm Assessment and Plan (1) Hypertension Status: Chronic (2) Acute CHF Status: Acute (3) Pleural effusion, left Status: Acute - Assessment and Plan (Free Text) Plan: - pulmonology consult - Dr. Marie - cardiology consult- Dr. Perez - s/p thoracocentesis; f/u fluid pathology, cytology, analysis - c/w lasix 40 mg BID and fluid restriction - probnp was 75k on admission, trended down to 50k, today 47k - encourage OOBTC and participation with physical therapy - heart healthy diet - rest of plan as ordered
[2017-11-03] MEDS: Sildenafil 20 MG TAB PO SCH (17:07)
[2017-11-04] MEDS: Levalbuterol 0.63 MG/3 ML Inhal Soln UD INH SCH ×4 (01:05→19:18)
[2017-11-04 06:57] LABS: CALCIUM 8.9 mg/dL (8.4-10.2)
[2017-11-04] MEDS: Ipratropium 0.02% Inhal Soln (0.5 mg/2.5 ml) UD IH SCH ×3 (07:24→19:18)
[2017-11-04] MEDS: Sildenafil 20 MG TAB PO SCH ×3 (09:01→16:43)
[2017-11-04] MEDS: Metoprolol Succinate 25 mg XL Tab PO SCH (09:01)
[2017-11-04] MEDS: Potassium Chloride 20 mEq ER Tab PO SCH ×2 (09:02→16:47)
--- NOTE | 2017-11-04 16:58 | CP.PCM.PN ---
Subjective - Date & Time of Evaluation Date of Evaluation: 11/04/17 Time of Evaluation: 11:40 - Subjective Subjective: F/U Pleural effusion Objective - Vital Signs/Intake and Output Vital Signs (last 24 hours): Temp Pulse Resp BP Pulse Ox 97.8 F 71 18 116/48 L 100 11/04/17 15:48 11/04/17 15:48 11/04/17 15:48 11/04/17 16:47 11/04/17 15:48 - Medications Medications: Current Medications Acetaminophen (Tylenol 325mg Tab) 650 mg PO Q6 PRN PRN Reason: Pain, Mild (1-3) Last Admin: 11/02/17 20:41 Dose: 650 mg Alprazolam (Xanax) 0.25 mg PO Q12 PRN PRN Reason: Anxiety Stop: 11/07/17 11:16 Last Admin: 11/03/17 22:07 Dose: 0.25 mg Aspirin (Ecotrin) 81 mg PO DAILY [facility] Last Admin: 11/04/17 09:03 Dose: 81 mg Clopidogrel Bisulfate (Plavix) 75 mg PO DAILY [facility] Last Admin: 11/04/17 09:01 Dose: 75 mg Doxazosin Mesylate (Cardura) 2 mg PO HS [facility] Last Admin: 11/03/17 22:06 Dose: 2 mg Ergocalciferol (Drisdol 50,000 Intl Units Cap) 1 cap PO SUN [facility] Fluticasone Propionate (Flonase) 1 spr REBEKA BID [facility] Last Admin: 11/04/17 16:42 Dose: 1 spr Furosemide (Lasix) 40 mg PO BID [facility] Last Admin: 11/04/17 16:47 Dose: 40 mg Ipratropium [place] (Atrovent) 0.5 mg IH RTID [facility] Last Admin: 11/04/17 13:48 Dose: 0.5 mg Levalbuterol HCl (Xopenex) 0.63 mg INH RQ6 [facility] Last Admin: 11/04/17 13:48 Dose: 0.63 mg Meclizine HCl (Antivert) 25 mg PO DAILY PRN PRN Reason: Dizziness Metoprolol Succinate (Toprol Xl) 25 mg PO DAILY [facility] Last Admin: 11/04/17 09:01 Dose: 25 mg Montelukast Sodium (Singulair) 10 mg PO HS [facility] Last Admin: 11/03/17 22:06 Dose: 10 mg Potassium Chloride (K-Dur 20 Meq Er Tab) 20 meq PO BID [facility] Last Admin: 11/04/17 16:47 Dose: 20 meq Sildenafil Citrate (Revatio) 20 mg PO TID [facility] Last Admin: 11/04/17 16:43 Dose: 20 mg - Labs Labs: 11/03/17 04:20 11/04/17 05:20 PT 12.1 Seconds (9.8-13.1) 10/30/17 23:43 INR 1.1 10/30/17 23:43 APTT 29.7 Seconds (25.6-37.1) 10/30/17 23:43 - Constitutional Appears: No Acute Distress - Head Exam Head Exam: NORMAL INSPECTION - Eye Exam Eye Exam: PERRL - ENT Exam ENT Exam: Normal Exam - Neck Exam Neck Exam: Normal Inspection - Respiratory Exam Respiratory Exam: Decreased Breath Sounds (at bases L>R) Additional comments: Crackles at bases. Vocal/tactile fremitus decreased L base - Cardiovascular Exam Cardiovascular Exam: REGULAR RHYTHM - GI/Abdominal Exam GI & Abdominal Exam: Normal Bowel Sounds - Extremities Exam Additional comments: Legs edema - Back Exam Back Exam: NORMAL INSPECTION - Neurological Exam Neurological Exam: Alert, Oriented x3 Additional comments: No focal motor/sensory deficit. - Psychiatric Exam Psychiatric exam: Normal Affect, Normal Mood - Skin Skin Exam: Warm Assessment and Plan (1) Pleural effusion, left Status: Acute (2) Acute CHF Status: Acute (3) Hx of CABG Status: Acute
--- NOTE | 2017-11-04 18:24 | CP.PCM.PN ---
Subjective - Date & Time of Evaluation Date of Evaluation: 11/04/17 Time of Evaluation: 10:30 - Subjective Subjective: 86 y/o F resting comfortably on chair by bedside. Pt reports feeling better, SOB is improving, does not feel like doing physical therapy due to fatigue. Objective - Vital Signs/Intake and Output Vital Signs (last 24 hours): Temp Pulse Resp BP Pulse Ox 97.8 F 71 18 116/48 L 100 11/04/17 15:48 11/04/17 15:48 11/04/17 15:48 11/04/17 16:47 11/04/17 15:48 Intake and Output: 11/04/17 11/04/17 06:59 18:59 Intake Total 550 Output Total 1 Balance 549 - Medications Medications: Current Medications Acetaminophen (Tylenol 325mg Tab) 650 mg PO Q6 PRN PRN Reason: Pain, Mild (1-3) Last Admin: 11/02/17 20:41 Dose: 650 mg Alprazolam (Xanax) 0.25 mg PO Q12 PRN PRN Reason: Anxiety Stop: 11/07/17 11:16 Last Admin: 11/03/17 22:07 Dose: 0.25 mg Aspirin (Ecotrin) 81 mg PO DAILY [facility] Last Admin: 11/04/17 09:03 Dose: 81 mg Clopidogrel Bisulfate (Plavix) 75 mg PO DAILY [facility] Last Admin: 11/04/17 09:01 Dose: 75 mg Doxazosin Mesylate (Cardura) 2 mg PO HS [facility] Last Admin: 11/03/17 22:06 Dose: 2 mg Ergocalciferol (Drisdol 50,000 Intl Units Cap) 1 cap PO SUN [facility] Fluticasone Propionate (Flonase) 1 spr REBEKA BID [facility] Last Admin: 11/04/17 16:42 Dose: 1 spr Furosemide (Lasix) 40 mg PO BID [facility] Last Admin: 11/04/17 16:47 Dose: 40 mg Ipratropium [place] (Atrovent) 0.5 mg IH RTID [facility] Last Admin: 11/04/17 13:48 Dose: 0.5 mg Levalbuterol HCl (Xopenex) 0.63 mg INH RQ6 [facility] Last Admin: 11/04/17 13:48 Dose: 0.63 mg Meclizine HCl (Antivert) 25 mg PO DAILY PRN PRN Reason: Dizziness Metoprolol Succinate (Toprol Xl) 25 mg PO DAILY [facility] Last Admin: 11/04/17 09:01 Dose: 25 mg Montelukast Sodium (Singulair) 10 mg PO HS [facility] Last Admin: 11/03/17 22:06 Dose: 10 mg Potassium Chloride (K-Dur 20 Meq Er Tab) 20 meq PO BID [facility] Last Admin: 11/04/17 16:47 Dose: 20 meq Sildenafil Citrate (Revatio) 20 mg PO TID [facility] Last Admin: 11/04/17 16:43 Dose: 20 mg - Labs Labs: 11/03/17 04:20 11/04/17 05:20 PT 12.1 Seconds (9.8-13.1) 10/30/17 23:43 INR 1.1 10/30/17 23:43 APTT 29.7 Seconds (25.6-37.1) 10/30/17 23:43 - Head Exam Head Exam: ATRAUMATIC, NORMAL INSPECTION - Eye Exam Eye Exam: EOMI, Normal appearance - Neck Exam Neck Exam: Full ROM. absent: Meningismus - Respiratory Exam Respiratory Exam: NORMAL BREATHING PATTERN. absent: Rhonchi, Wheezes - Cardiovascular Exam Cardiovascular Exam: REGULAR RHYTHM, +S1, +S2 - GI/Abdominal Exam GI & Abdominal Exam: Soft. absent: Guarding, Tenderness - Neurological Exam Neurological Exam: Alert, Awake, Oriented x3 Assessment and Plan - Assessment and Plan (Free Text) Assessment: 86 y/o F was admitted for evaluation and management of dyspnea due most probably to acute CHF and pleural effusion. --On Furosemide 40mg PO BID. Potassium supplementation ordered. --Continue management as per Pulmonology, Dr Marie --Cardiology on board, Dr Perez --S/P thoracocentesis for pleural effusion. Fluid pathology and cytology reviewed. --OOB and physical therapy encouraged. --Rest of plan as ordered.
--- NOTE | 2017-11-04 20:56 | CP.PCM.PN ---
Subjective - Date & Time of Evaluation Date of Evaluation: 11/03/17 Time of Evaluation: 15:00 - Subjective Subjective: s/p thoracentesis with 1500 cc removed Objective - Vital Signs/Intake and Output Vital Signs (last 24 hours): Temp Pulse Resp BP Pulse Ox 98.4 F 79 20 114/71 96 11/04/17 19:41 11/04/17 19:41 11/04/17 19:41 11/04/17 19:41 11/04/17 19:41 Intake and Output: 11/04/17 11/05/17 18:59 06:59 Intake Total 550 Output Total 1 Balance 549 - Medications Medications: Current Medications Acetaminophen (Tylenol 325mg Tab) 650 mg PO Q6 PRN PRN Reason: Pain, Mild (1-3) Last Admin: 11/02/17 20:41 Dose: 650 mg Alprazolam (Xanax) 0.25 mg PO Q12 PRN PRN Reason: Anxiety Stop: 11/07/17 11:16 Last Admin: 11/03/17 22:07 Dose: 0.25 mg Aspirin (Ecotrin) 81 mg PO DAILY [facility] Last Admin: 11/04/17 09:03 Dose: 81 mg Clopidogrel Bisulfate (Plavix) 75 mg PO DAILY [facility] Last Admin: 11/04/17 09:01 Dose: 75 mg Doxazosin Mesylate (Cardura) 2 mg PO HS [facility] Last Admin: 11/03/17 22:06 Dose: 2 mg Ergocalciferol (Drisdol 50,000 Intl Units Cap) 1 cap PO SUN [facility] Fluticasone Propionate (Flonase) 1 spr REBEKA BID [facility] Last Admin: 11/04/17 16:42 Dose: 1 spr Furosemide (Lasix) 40 mg PO BID [facility] Last Admin: 11/04/17 16:47 Dose: 40 mg Ipratropium [place] (Atrovent) 0.5 mg IH RTID [facility] Last Admin: 11/04/17 19:18 Dose: 0.5 mg Levalbuterol HCl (Xopenex) 0.63 mg INH RQ6 [facility] Last Admin: 11/04/17 19:18 Dose: 0.63 mg Meclizine HCl (Antivert) 25 mg PO DAILY PRN PRN Reason: Dizziness Metoprolol Succinate (Toprol Xl) 25 mg PO DAILY [facility] Last Admin: 11/04/17 09:01 Dose: 25 mg Montelukast Sodium (Singulair) 10 mg PO HS [facility] Last Admin: 11/03/17 22:06 Dose: 10 mg Potassium Chloride (K-Dur 20 Meq Er Tab) 20 meq PO BID [facility] Last Admin: 11/04/17 16:47 Dose: 20 meq Sildenafil Citrate (Revatio) 20 mg PO TID [facility] Last Admin: 11/04/17 16:43 Dose: 20 mg - Labs Labs: 11/03/17 04:20 11/04/17 05:20 PT 12.1 Seconds (9.8-13.1) 10/30/17 23:43 INR 1.1 10/30/17 23:43 APTT 29.7 Seconds (25.6-37.1) 10/30/17 23:43 - Constitutional Appears: Well - Head Exam Head Exam: ATRAUMATIC, NORMAL INSPECTION, NORMOCEPHALIC - Eye Exam Eye Exam: EOMI, Normal appearance, PERRL Pupil Exam: NORMAL ACCOMODATION, PERRL - ENT Exam ENT Exam: Mucous Membranes Moist, Normal Exam - Neck Exam Neck Exam: Full ROM, Normal Inspection. absent: Lymphadenopathy - Respiratory Exam Respiratory Exam: Clear to Ausculation Bilateral, NORMAL BREATHING PATTERN - Cardiovascular Exam Cardiovascular Exam: REGULAR RHYTHM, +S1, +S2. absent: Murmur - GI/Abdominal Exam GI & Abdominal Exam: Soft, Normal Bowel Sounds. absent: Tenderness - Extremities Exam Extremities Exam: Full ROM, Normal Capillary Refill, Normal Inspection. absent : Joint Swelling, Pedal Edema - Back Exam Back Exam: NORMAL INSPECTION - Neurological Exam Neurological Exam: Alert, Awake, CN II-XII Intact, Normal Gait, Oriented x3 - Psychiatric Exam Psychiatric exam: Normal Affect, Normal Mood - Skin Skin Exam: Dry, Intact, Normal Color, Warm Assessment and Plan (1) Acute CHF Assessment & Plan: improving cont with IV lasix 2' to dietary non-compliance Status: Acute (2) Dyspnea Assessment & Plan: sildenafil for pulmonary HTN lasix Status: Acute (3) Hx of CABG Assessment & Plan: cont dapt cont bb Status: Acute (4) Hypertension Status: Chronic (5) Pleural effusion, left Status: Acute
--- NOTE | 2017-11-04 20:59 | CP.PCM.PN ---
Subjective - Date & Time of Evaluation Date of Evaluation: 11/04/17 Time of Evaluation: 20:57 - Subjective Subjective: improving edema resolving sob back to baseline Objective - Vital Signs/Intake and Output Vital Signs (last 24 hours): Temp Pulse Resp BP Pulse Ox 98.4 F 79 20 114/71 96 11/04/17 19:41 11/04/17 19:41 11/04/17 19:41 11/04/17 19:41 11/04/17 19:41 Intake and Output: 11/04/17 11/05/17 18:59 06:59 Intake Total 550 Output Total 1 Balance 549 - Medications Medications: Current Medications Acetaminophen (Tylenol 325mg Tab) 650 mg PO Q6 PRN PRN Reason: Pain, Mild (1-3) Last Admin: 11/02/17 20:41 Dose: 650 mg Alprazolam (Xanax) 0.25 mg PO Q12 PRN PRN Reason: Anxiety Stop: 11/07/17 11:16 Last Admin: 11/03/17 22:07 Dose: 0.25 mg Aspirin (Ecotrin) 81 mg PO DAILY [facility] Last Admin: 11/04/17 09:03 Dose: 81 mg Clopidogrel Bisulfate (Plavix) 75 mg PO DAILY [facility] Last Admin: 11/04/17 09:01 Dose: 75 mg Doxazosin Mesylate (Cardura) 2 mg PO HS [facility] Last Admin: 11/03/17 22:06 Dose: 2 mg Ergocalciferol (Drisdol 50,000 Intl Units Cap) 1 cap PO SUN [facility] Fluticasone Propionate (Flonase) 1 spr REBEKA BID [facility] Last Admin: 11/04/17 16:42 Dose: 1 spr Furosemide (Lasix) 40 mg PO BID [facility] Last Admin: 11/04/17 16:47 Dose: 40 mg Ipratropium [place] (Atrovent) 0.5 mg IH RTID [facility] Last Admin: 11/04/17 19:18 Dose: 0.5 mg Levalbuterol HCl (Xopenex) 0.63 mg INH RQ6 [facility] Last Admin: 11/04/17 19:18 Dose: 0.63 mg Meclizine HCl (Antivert) 25 mg PO DAILY PRN PRN Reason: Dizziness Metoprolol Succinate (Toprol Xl) 25 mg PO DAILY [facility] Last Admin: 11/04/17 09:01 Dose: 25 mg Montelukast Sodium (Singulair) 10 mg PO HS [facility] Last Admin: 11/03/17 22:06 Dose: 10 mg Potassium Chloride (K-Dur 20 Meq Er Tab) 20 meq PO BID [facility] Last Admin: 11/04/17 16:47 Dose: 20 meq Sildenafil Citrate (Revatio) 20 mg PO TID [facility] Last Admin: 11/04/17 16:43 Dose: 20 mg - Labs Labs: 11/03/17 04:20 11/04/17 05:20 PT 12.1 Seconds (9.8-13.1) 10/30/17 23:43 INR 1.1 10/30/17 23:43 APTT 29.7 Seconds (25.6-37.1) 10/30/17 23:43 - Constitutional Appears: Well - Head Exam Head Exam: ATRAUMATIC, NORMAL INSPECTION, NORMOCEPHALIC - Eye Exam Eye Exam: EOMI, Normal appearance, PERRL Pupil Exam: NORMAL ACCOMODATION, PERRL - ENT Exam ENT Exam: Mucous Membranes Moist, Normal Exam - Neck Exam Neck Exam: Full ROM, Normal Inspection. absent: Lymphadenopathy - Respiratory Exam Respiratory Exam: Clear to Ausculation Bilateral, Rales, NORMAL BREATHING PATTERN - Cardiovascular Exam Cardiovascular Exam: REGULAR RHYTHM, +S1, +S2, Murmur - GI/Abdominal Exam GI & Abdominal Exam: Soft, Normal Bowel Sounds. absent: Tenderness - Extremities Exam Extremities Exam: Full ROM, Normal Capillary Refill, Normal Inspection, Pedal Edema. absent: Joint Swelling - Back Exam Back Exam: NORMAL INSPECTION - Neurological Exam Neurological Exam: Alert, Awake, CN II-XII Intact, Oriented x3 - Psychiatric Exam Psychiatric exam: Normal Affect, Normal Mood - Skin Skin Exam: Dry, Intact, Normal Color, Warm Assessment and Plan (1) Acute CHF Assessment & Plan: cont IV diuretic cont bb sildenafil for pulm htn Status: Acute (2) Dyspnea Status: Acute (3) Hx of CABG Assessment & Plan: dapt bb Status: Acute (4) Hypertension Status: Chronic (5) Pleural effusion, left Assessment & Plan: s/p thoracentesis post CABG inflammatory rx Status: Acute
[2017-11-05] MEDS: Levalbuterol 0.63 MG/3 ML Inhal Soln UD INH SCH ×2 (01:12→07:37)
[2017-11-05 05:28] LABS: BASO # 0.1 K/uL (0.0-0.2); BASO % 0.9 % (0.0-2.0); EOS # 0.3 K/uL (0.0-0.7); EOS % 2.9 % (0.0-4.0); LYMPH # 2.1 K/uL (1.0-4.3); LYMPH % 20.7 % (20.0-40.0); MEAN CELL VOLUME 87.8 fl (81.0-99.0); MEAN CORPUSCULAR HEMOGLOBIN 28.4 pg (27.0-31.0); MEAN CORPUSCULAR HGB CONC 32.3 g/dL (33.0-37.0); MEAN PLATELET VOLUME 8.8 fl (7.2-11.7); MONO % 9.6 % (0.0-10.0); NEUT # 6.7 K/uL (1.8-7.0); NEUT % 65.9 % (50.0-75.0); RBC 3.18 Mil/uL (3.80-5.20); RED CELL DISTRIBUTION WIDTH 15.6 % (11.5-14.5); WHITE BLOOD COUNT 10.1 K/uL (4.8-10.8)
[2017-11-05 06:05] LABS: ALB/GLOB RATIO 1.2 (1.0-2.1); ALBUMIN 3.4 g/dL (3.5-5.0)
--- NOTE | 2017-11-05 06:35 | CP.PCM.PN ---
Subjective - Date & Time of Evaluation Date of Evaluation: 11/05/17 Objective - Vital Signs/Intake and Output Vital Signs (last 24 hours): Temp Pulse Resp BP Pulse Ox 98.8 F 93 H 18 110/65 95 11/05/17 04:40 11/05/17 04:40 11/05/17 04:40 11/05/17 04:40 11/05/17 04:40 Intake and Output: 11/04/17 11/05/17 18:59 06:59 Intake Total 550 Output Total 1 Balance 549 - Medications Medications: Current Medications Acetaminophen (Tylenol 325mg Tab) 650 mg PO Q6 PRN PRN Reason: Pain, Mild (1-3) Last Admin: 11/02/17 20:41 Dose: 650 mg Alprazolam (Xanax) 0.25 mg PO Q12 PRN PRN Reason: Anxiety Stop: 11/07/17 11:16 Last Admin: 11/04/17 21:41 Dose: 0.25 mg Aspirin (Ecotrin) 81 mg PO DAILY [facility] Last Admin: 11/04/17 09:03 Dose: 81 mg Clopidogrel Bisulfate (Plavix) 75 mg PO DAILY [facility] Last Admin: 11/04/17 09:01 Dose: 75 mg Doxazosin Mesylate (Cardura) 2 mg PO HS [facility] Last Admin: 11/04/17 21:35 Dose: 2 mg Ergocalciferol (Drisdol 50,000 Intl Units Cap) 1 cap PO SUN [facility] Fluticasone Propionate (Flonase) 1 spr REBEKA BID [facility] Last Admin: 11/04/17 16:42 Dose: 1 spr Furosemide (Lasix) 40 mg PO BID [facility] Last Admin: 11/04/17 16:47 Dose: 40 mg Ipratropium [place] (Atrovent) 0.5 mg IH RTID [facility] Last Admin: 11/04/17 19:18 Dose: 0.5 mg Levalbuterol HCl (Xopenex) 0.63 mg INH RQ6 [facility] Last Admin: 11/05/17 01:12 Dose: 0.63 mg Meclizine HCl (Antivert) 25 mg PO DAILY PRN PRN Reason: Dizziness Metoprolol Succinate (Toprol Xl) 25 mg PO DAILY [facility] Last Admin: 11/04/17 09:01 Dose: 25 mg Montelukast Sodium (Singulair) 10 mg PO HS [facility] Last Admin: 11/04/17 21:35 Dose: 10 mg Potassium Chloride (K-Dur 20 Meq Er Tab) 20 meq PO BID [facility] Last Admin: 11/04/17 16:47 Dose: 20 meq Sildenafil Citrate (Revatio) 20 mg PO TID [facility] Last Admin: 11/04/17 16:43 Dose: 20 mg - Labs Labs: 11/05/17 05:22 11/05/17 05:22 PT 12.1 Seconds (9.8-13.1) 10/30/17 23:43 INR 1.1 10/30/17 23:43 APTT 29.7 Seconds (25.6-37.1) 10/30/17 23:43 Assessment and Plan (1) Acute CHF Status: Acute (2) Dyspnea Status: Acute (3) Hx of CABG Status: Acute (4) Hypertension Status: Chronic (5) Pleural effusion, left Status: Acute
[2017-11-05] MEDS: Ipratropium 0.02% Inhal Soln (0.5 mg/2.5 ml) UD IH SCH ×2 (07:37→13:00)
[2017-11-05 08:33] VITALS: RESP 20
[2017-11-05] MEDS: Potassium Chloride 20 mEq ER Tab PO SCH (08:56)
[2017-11-05] MEDS: Sildenafil 20 MG TAB PO SCH (08:56)
[2017-11-05] MEDS: Metoprolol Succinate 25 mg XL Tab PO SCH (08:57)
[2017-11-05 08:58] VITALS: PULSE 83
[2017-11-05 12:03] VITALS: BP 108/54; TEMP 98.1
--- NOTE | 2017-11-05 15:50 | CP.PCM.DIS ---
Provider - Provider Date of Admission: 11/01/17 23:02 Attending physician: Jean Carlos Miles MD Primary care physician: Dr Miles Consults: Pneumology: Dr Marie Cardiology: Dr Perez. Time Spent in preparation of Discharge (in minutes): 25 Diagnosis - Discharge Diagnosis (1) Acute CHF Status: Acute Priority: High (2) Dyspnea Status: Acute (3) Pleural effusion, left Status: Acute Priority: High Hospital Course - Lab Results Lab Results: Micro Results 11/02/17 16:30 Pleural Fluid Fungal Culture - Preliminary Most Recent Lab Values WBC 10.1 K/uL (4.8-10.8) 11/05/17 05:22 RBC 3.18 Mil/uL (3.80-5.20) L 11/05/17 05:22 Hgb 9.0 g/dL (12.0-16.0) L 11/05/17 05:22 Hct 28.0 % (34.0-47.0) L 11/05/17 05:22 MCV 87.8 fl (81.0-99.0) 11/05/17 05:22 MCH 28.4 pg (27.0-31.0) 11/05/17 05:22 MCHC 32.3 g/dL (33.0-37.0) L 11/05/17 05:22 RDW 15.6 % (11.5-14.5) H 11/05/17 05:22 Plt Count 189 K/uL (130-400) 11/05/17 05:22 MPV 8.8 fl (7.2-11.7) 11/05/17 05:22 Neut % (Auto) 65.9 % (50.0-75.0) 11/05/17 05:22 Lymph % (Auto) 20.7 % (20.0-40.0) 11/05/17 05:22 Overton % (Auto) 9.6 % (0.0-10.0) 11/05/17 05:22 Eos % (Auto) 2.9 % (0.0-4.0) 11/05/17 05:22 Baso % (Auto) 0.9 % (0.0-2.0) 11/05/17 05:22 Neut # (Auto) 6.7 K/uL (1.8-7.0) 11/05/17 05:22 Lymph # (Auto) 2.1 K/uL (1.0-4.3) 11/05/17 05:22 Overton # (Auto) 1.0 K/uL (0.0-0.8) H 11/05/17 05:22 Eos # (Auto) 0.3 K/uL (0.0-0.7) 11/05/17 05:22 Baso # (Auto) 0.1 K/uL (0.0-0.2) 11/05/17 05:22 PT 12.1 Seconds (9.8-13.1) 10/30/17 23:43 INR 1.1 10/30/17 23:43 APTT 29.7 Seconds (25.6-37.1) 10/30/17 23:43 Sodium 137 mmol/l (132-148) 11/05/17 05:22 Potassium 4.5 MMOL/L (3.6-5.0) 11/05/17 05:22 Chloride 91 mmol/L (98-107) L 11/05/17 05:22 Carbon Dioxide 43 mmol/L (22-30) H* 11/05/17 05:22 Anion Gap 8 (10-20) L 11/05/17 05:22 BUN 36 mg/dl (7-17) H 11/05/17 05:22 Creatinine 1.7 mg/dl (0.7-1.2) H 11/05/17 05:22 Est GFR ( Amer) 34 11/05/17 05:22 Est GFR (Non-Af Amer) 28 11/05/17 05:22 Random Glucose 112 mg/dL (65-105) H 11/05/17 05:22 Hemoglobin A1c 5.6 % (4.2-6.5) 11/02/17 08:42 Calcium 9.0 mg/dL (8.4-10.2) 11/05/17 05:22 Total Bilirubin 0.7 mg/dl (0.2-1.3) 11/05/17 05:22 AST 19 U/L (14-36) 11/05/17 05:22 ALT 23 U/L (9-52) 11/05/17 05:22 Alkaline Phosphatase 60 U/L (38-126) 11/05/17 05:22 Lactate Dehydrogenase 525 U/L (313-618) 11/02/17 15:56 Troponin I 0.0450 ng/mL (0.00-0.120) 11/02/17 08:42 NT-Pro-B Natriuret Pep 74240 pg/ml (0-900) H 11/03/17 04:20 Total Protein 6.2 G/DL (6.3-8.2) L 11/05/17 05:22 Albumin 3.4 g/dL (3.5-5.0) L 11/05/17 05:22 Globulin 2.8 gm/dL (2.2-3.9) 11/05/17 05:22 Albumin/Globulin Ratio 1.2 (1.0-2.1) 11/05/17 05:22 Triglycerides 113 mg/DL (0-149) 11/02/17 08:42 Cholesterol 129 mg/dL (0-199) 11/02/17 08:42 LDL Cholesterol Direct 56 mg/dL (0-129) 11/02/17 08:42 HDL Cholesterol 41 MG/DL (30-70) 11/02/17 08:42 Amylase 103 U/L (30-110) 11/02/17 15:56 TSH 3rd Generation 1.73 mIU/ML (0.46-4.68) 11/02/17 08:42 Fluid Source Pleural 11/02/17 14:20 Fluid Appearance Cloudy (CLEAR) 11/02/17 14:20 Fluid WBC 1152.0 /mm3 (0.0-300.0) H 11/02/17 14:20 Fluid RBC 2534.0 /mm3 (0.0-0.0) H 11/02/17 14:20 Fluid Tot Cell Count 100 (0-0) H 11/02/17 14:20 Fluid Neutrophils 9.0 % (0-0) H 11/02/17 14:20 Fluid Lymphocytes 77.0 % (0-0) H 11/02/17 14:20 Fld Monocyte/Macrophag 7 % (0-0) H 11/02/17 14:20 Fluid Glucose 129 mg/dL (NONE ESTABLISHED) 11/02/17 14:20 Fluid Total Protein 3.0 g/dL (NONE ESTABLISHED) 11/02/17 14:20 Fluid LDH 224 IU (NONE ESTABLISHED) 11/02/17 14:20 Fluid Amylase 34 mg/dL (NONE ESTABLISHED) 11/02/17 14:20 Fluid Comment Slightly bloody 11/02/17 14:20 - Hospital Course Hospital Course: 86 y/o F was admitted for evaluation and management of dyspnea due most probably to acute CHF and pleural effusion. Thoracocentesis was performed with improvement of dyspnea. Pulmonology, Dr Marie; and Cardiology Dr Perez were consulted. Today, pt reported remarkable improvement and return to baseline. Pt stable, d/c home. Medications as indicated. Will f/u with PCP and cardiology within 1 week. - Date & Time of H&P Date of H&P: 10/31/17 Time of H&P: 14:27 Discharge Exam - Head Exam Head Exam: NORMAL INSPECTION - Eye Exam Eye Exam: EOMI, Normal appearance - ENT Exam ENT Exam: Mucous Membranes Moist - Neck Exam Neck exam: Full Rom, Tenderness - Respiratory Exam Respiratory Exam: NORMAL BREATHING PATTERN, UNREMARKABLE - Cardiovascular Exam Cardiovascular Exam: +S1, +S2 - GI/Abdominal Exam GI & Abdominal Exam: Normal Bowel Sounds, Soft, Unremarkable. absent: Tenderness - Neurological Exam Neurological exam: Alert, Oriented x3 Discharge Plan - Discharge Medications Prescriptions: Furosemide 40 mg PO DAILY #30 tablet Metoprolol Succinate XL [Toprol XL] 25 mg PO DAILY #30 tab Sildenafil [Revatio] 20 mg PO TID #90 tab - Follow Up Plan Condition: FAIR Disposition: HOME/ ROUTINE Instructions: Heart Failure, Adult (DC), Shortness of Breath (Dyspnea) (DC), Pleural Effusion (DC) Additional Instructions: follow up with on 11/12/17 4:45pm Referrals: Santi Perez MD [Staff Provider] - Jean Carlos Miles MD [Family Provider] - Addi Marie MD [Staff Provider] -
[2017-11-07] MEDS ORDERED: Ergocalciferol 50,000 Intl Units Cap PO SCH (09:00)
[2017-11-08 20:54] VITALS: O2SAT 96
--- NOTE | 2017-11-09 12:48 | PQF ---
PROVIDER RESPONSE TEXT: Acute systolic chf REVIEWER QUERY TEXT: CHF Acuity and Type Congestive Heart Failure is documented in the Medical Record. Please document the type and acuity (in cludes probable or suspected) Such as: Type: -- Systolic -- Diastolic -- Combined -- Other, please specify Acuity: -- Acute -- Chronic -- Acute on chronic -- Other, please specify Also please document the underlying cause of the CHF (includes probable or suspected) The patient's Clinical Indicators include: pt. w/ "pedal edema b/l + pitting"; PRO BNP - 21439 on admission; chest x-ray shows " large lt. pleu ral effusion". Query created by: Nanette Su on 11/09/2017 8:39 AM Electronically signed by: Jean Carlos Miles MD 11/09/2017 12:45 PM
== END 2017-11-05 13:42 | disposition home health service (06) | DRG 292 ==
LOC: H.ER 22:32 → H.ERHOLD 10-31 01:26 → UNDOADMOB 10-31 01:26 → H.ERHOLD 10-31 05:46 → H.TEL 10-31 05:46 → INTOOBSV 10-31 23:02 → OBSVTOIN 10-31 23:02 → H.TEL 11-01 23:02 → OBSVTOIN 11-01 23:02 → H.TEL 11-05 01:28
PROVIDERS: ADMIT Family Medicine; ATTEND Family Medicine
PROC: 0W9B30Z Drainage of Left Pleural Cavity with Drainage Device, Percutaneous Approach (ICD-10-PCS; principal; 2017-11-02)
DX: I11.0 Hypertensive heart disease with heart failure (principal); J91.8 Pleural effusion in other conditions classified elsewhere; I50.21 Acute systolic (congestive) heart failure; I71.2 Thoracic aortic aneurysm, without rupture; I27.20 Pulmonary hypertension, unspecified; I25.10 Atherosclerotic heart disease of native coronary artery without angina pectoris; E11.9 Type 2 diabetes mellitus without complications; E66.9 Obesity, unspecified; Z68.35 Body mass index [BMI] 35.0-35.9, adult; F41.9 Anxiety disorder, unspecified; E78.5 Hyperlipidemia, unspecified; E78.00 Pure hypercholesterolemia, unspecified; I25.2 Old myocardial infarction; Z91.11 Patient's noncompliance with dietary regimen; Z87.01 Personal history of pneumonia (recurrent); Z95.1 Presence of aortocoronary bypass graft; Z87.891 Personal history of nicotine dependence; Z79.02 Long term (current) use of antithrombotics/antiplatelets; Z79.82 Long term (current) use of aspirin

== ENCOUNTER 2017-12-29 12:49 | Emergency (ER) | payer MEDICARE ==
[2017-12-29] MEDS ORDERED: Lidocaine 1% 5ml Abboject ONE (14:31)
--- NOTE | 2017-12-29 14:44 | PCM.SURG1 ---
Surgeon's Initial Post Op Note - Surgeon's Notes Surgeon: Stalin Plascencia MD Elevator Technician: NONE Type of Anesthesia: Local Pre-Operative Diagnosis: Left pleural effusion Operative Findings: US showed large left pleural effusion Post-Operative Diagnosis: Left pleural effusion Operation Performed: US guided left thoracentesis Specimen/Specimens Removed: 900 cc of straw colored fluid Estimated Blood Loss: EBL {In ML}: 0 Blood Products Given: N/A Drains Used: No Drains Post-Op Condition: Fair Date of Surgery/Procedure: 12/29/17 Time of Surgery/Procedure: 14:40
--- NOTE | 2017-12-29 14:50 | ED PDOC ---
HPI: SOB/CHF/COPD Time Seen by Provider: 12/29/17 13:36 Chief Complaint (Nursing): Shortness Of Breath Chief Complaint (Provider): Dyspnea History Per: Patient History/Exam Limitations: no limitations Onset/Duration Of Symptoms: Days (x7) Current Symptoms Are (Timing): Still Present Additional Complaint(s): 87 y/o female with a PMHx of CHF and CAD presents to the ED for evaluation of dyspnea, onset one week ago. Patient was seen and evaluated by primary Nickel Plant Operator, Dr. Perez who states patient had a CXR done that showed left pleural effusion and therefore sent the provider here for further evaluation. Patient is now complaining of shortness of breath on exertion. Otherwise, denies chest pain, fever, cough and leg swelling. PMD: Jean Carlos Miles Nickel Plant Operator: Santi Perez Past Medical History Reviewed: Historical Data, Nursing Documentation, Vital Signs Vital Signs: Last Vital Signs Temp 98.3 F 12/29/17 12:54 Pulse 78 12/29/17 14:20 Resp 19 12/29/17 14:20 BP 146/80 12/29/17 14:20 Pulse Ox 100 12/29/17 14:20 - Medical History PMH: Anxiety, Asthma, Bronchitis, CAD, CHF, HTN, Hypercholesterolemia, Pneumonia Denies: Chronic Kidney Disease - Surgical History Surgical History: CABG - Family History Family History: States: Unknown Family Hx - Home Medications Home Medications: Ambulatory Orders Medication Instructions Recorded RX: ALPRAZolam [Xanax] 0.25 mg PO Q12 PRN 08/06/17 RX: Aspirin [Ecotrin] 81 mg PO DAILY 08/06/17 RX: Azilsartan Medoxomil [Edarbi] 80 mg PO DAILY 08/06/17 RX: Clopidogrel [Plavix] 75 mg PO DAILY 08/06/17 RX: Doxazosin [Cardura] 2 mg PO HS 08/06/17 RX: Ergocalciferol (Vitamin D2) 50,000 unit PO SUN 08/06/17 [Vitamin D2] RX: Febuxostat [Uloric] 40 mg PO DAILY 08/06/17 RX: Icosapent Ethyl [Vascepa] 1 cap PO BID 08/06/17 RX: Levocetirizine Dihydrochloride 5 mg PO DAILY 08/06/17 [Xyzal] RX: Liraglutide [Victoza 3-Rohan] 1.8 mg SC DAILY 08/06/17 RX: Meclizine [Meclizine*] 25 mg PO DAILY PRN 08/06/17 RX: Montelukast [Singulair] 10 mg PO HS 08/06/17 RX: Rosuvastatin Calcium [Crestor] 10 mg PO HS 08/06/17 RX: Furosemide 40 mg PO DAILY #30 tablet 11/05/17 RX: Metoprolol Succinate XL 25 mg PO DAILY #30 tab 11/05/17 [Toprol XL] RX: Sildenafil [Revatio] 20 mg PO TID #90 tab 11/05/17 - Allergies Allergies/Adverse Reactions: Allergies Allergy/AdvReac Type Severity Reaction Status Date / Time No Known Allergies Allergy Verified 12/29/17 12:54 Review of Systems ROS Statement: Except As Marked, All Systems Reviewed And Found Negative Constitutional: Negative for: Fever Cardiovascular: Negative for: Chest Pain Respiratory: Positive for: SOB with Exertion, Other (Dyspnea). Negative for: Cough Musculoskeletal: Negative for: Leg Pain (swelling) Physical Exam - Reviewed Nursing Documentation Reviewed: Yes Vital Signs Reviewed: Yes - Physical Exam Appears: Positive for: No Acute Distress. Negative for: Uncomfortable (Comfortable) Head Exam: Positive for: ATRAUMATIC, NORMOCEPHALIC Skin: Positive for: Normal Color, Warm, Dry Eye Exam: Positive for: Normal appearance, EOMI, PERRL Neck: Positive for: Normal, Painless ROM Cardiovascular/Chest: Positive for: Regular Rate, Rhythm. Negative for: Murmur Respiratory: Positive for: Decreased Breath Sounds (on the left side) Gastrointestinal/Abdominal: Positive for: Normal Exam, Soft. Negative for: Tenderness Back: Positive for: Normal Inspection. Negative for: L CVA Tenderness, R CVA Tenderness, Vertebral Tenderness Extremity: Positive for: Swelling (bilateral pitting edema (chronic)) Neurologic/Psych: Positive for: Alert, Oriented. Negative for: Motor/Sensory Deficits - ECG O2 Sat by Pulse Oximetry: 100 (RA) Pulse Ox Interpretation: Normal Medical Decision Making Medical Decision Making: Time: 1410 Impression: CHF and pleural effusion Plan: -- B-Type Natriuretic -- CMP -- Radiology Consult -- CBC with differentials -- PTT -- Prothrombin Time -- CXR One View -- Call Radiology Consult -- Thoracenthesis IR LT -- Discussed with Dr. Perez who would like a consult with IR for possible thoracenthesis. Patient's disposition is pending thoracenthesis. -- Spoke with Dr. Plascencia who will attempt thoracenthesis. Time: 1500 -- Patient endorsed to Dr. Gentile, pending observation and final disposition. Scribe Attestation: Documented by Sebastián Pfeiffer, acting as a scribe for Kesha Hancock MD. Provider Scribe Attestation: All medical record entries made by the Scribe were at my direction and personally dictated by me. I have reviewed the chart and agree that the record accurately reflects my personal performance of the history, physical exam, medical decision making, and the department course for this patient. I have also personally directed, reviewed, and agree with the discharge instructions and disposition. Disposition - Clinical Impression Clinical Impression: Pleural effusion - Patient ED Disposition Is Patient to be Admitted: Transfer of Care Counseled Patient/Family Regarding: Studies Performed, Diagnosis, Need For Followup - Disposition Referrals: Santi Perez MD [Family Provider] - Disposition: Transfer of Care Disposition Time: 15:00 Condition: STABLE Instructions: Pleural Effusion, Thoracentesis Patient Signed Over To: Xi Gentile
[2017-12-29 14:59] VITALS: TEMP 98
--- NOTE | 2017-12-29 15:22 | ED PDOC ---
- ECG O2 Sat by Pulse Oximetry: 100 Medical Decision Making Medical Decision Makin:45 Pt remained stable during ED observation, no complaints. Pt wants to go home. Disposition - Clinical Impression Clinical Impression: Pleural effusion - POA Present On Arrival: None - Disposition Referrals: Santi Perez MD [Family Provider] - Disposition: Routine/Home Disposition Time: 16:55 Condition: IMPROVED Instructions: Pleural Effusion, Thoracentesis Forms: [facility] (Maltese) Addendum Addendum: 12/29/17 15:00 Pt signed out by Dr. Hancock pending observation and disposition.
--- NOTE | 2017-12-29 15:29 | RAD ---
Date of service: 12/29/2017 PROCEDURE: CHEST RADIOGRAPH, 1 VIEW HISTORY: MELENDEZ COMPARISON: 11/02/2017. FINDINGS: LUNGS: There is moderate pulmonary venous congestion. PLEURA: Worsening large left pleural effusion. Small right pleural effusion. No pneumothorax. CARDIOVASCULAR: Persistent cardiomegaly. Status post CAB OSSEOUS STRUCTURES: No significant abnormalities. VISUALIZED UPPER ABDOMEN: Normal. OTHER FINDINGS: None. IMPRESSION: Large left pleural effusion. Cardiomegaly and small right pleural effusion. Pulmonary venous congestion.
--- NOTE | 2017-12-29 15:42 | RAD ---
Date of service: 12/29/2017 PROCEDURE: CHEST RADIOGRAPH, 1 VIEW HISTORY: Status post left thoracentesis COMPARISON: 12/29/2017 at 2:12 p.m. FINDINGS: LUNGS: There is moderate pulmonary venous congestion. PLEURA: Status post left thoracentesis, interval decrease in size of pleural effusion with residual moderate effusion. Persistent small right pleural effusion likely loculated along the right lateral chest wall. No pneumothorax. CARDIOVASCULAR: Moderate cardiomegaly. Status post CABG OSSEOUS STRUCTURES: Within normal limits for the patient's age. VISUALIZED UPPER ABDOMEN: Normal. OTHER FINDINGS: None. IMPRESSION: Status post left thoracentesis, interval decrease in size of pleural effusion with residual moderate effusion. No pneumothorax. No other significant interval change.
[2017-12-29 17:04] VITALS: O2SAT 100
[2017-12-29 17:10] VITALS: BP 146/68; PULSE 88; RESP 20
--- NOTE | 2017-12-31 10:59 | US ---
PROCEDURE: Date of procedure: 12/30/2017 Procedure: 1. Ultrasound-guided left thoracentesis, CPT 27741 Medications: 5cc 1% Lidocaine HISTORY: Left pleural effusion, shortness of breath TECHNIQUE: Following informed consent ,the Patients' left chest was marked. Procedure time-out was called, and the patient was placed in the sitting position and limited ultrasound showed a large left effusion. The patient's left back was prepped and draped in the usual sterile fashion. After the skin was anesthetized with lidocaine, a drainage catheter was advanced under ultrasound guidance into the pleural space. Ultrasound-guided thoracentesis was performed. A total of 900 cubic centimeters of straw-colored fluid removed without complication. A Xeroform dressing was applied. IMPRESSION: Ultrasound guided left thoracentesis. There were no immediate complications.
== END 2017-12-29 17:00 | disposition home or self-care (01) ==
LOC: H.ER 12:49
DX: J91.8 Pleural effusion in other conditions classified elsewhere (principal); E78.00 Pure hypercholesterolemia, unspecified; I11.0 Hypertensive heart disease with heart failure; Z95.1 Presence of aortocoronary bypass graft
CPT/HCPCS: 32555; 71045; 99285; C1729

== ENCOUNTER 2018-01-14 11:12 | Emergency (ER) | payer MEDICARE ==
[2018-01-14 11:25] VITALS: BMI 36.5
[2018-01-14] MEDS ORDERED: Lidocaine 1% 5ml Abboject ONE (13:09)
--- NOTE | 2018-01-14 13:26 | PCM.SURG1 ---
Surgeon's Initial Post Op Note - Surgeon's Notes Surgeon: Stalin Plascencia MD Front End Alignment Specialist: NONE Type of Anesthesia: Local Pre-Operative Diagnosis: Left pleural effusion, dyspnea Operative Findings: US showed large left effusion Post-Operative Diagnosis: Left pleural effusion, dyspnea Operation Performed: US guided thoracentesis Specimen/Specimens Removed: 1060 cc of straw colored fluid Estimated Blood Loss: EBL {In ML}: 0 Blood Products Given: N/A Drains Used: No Drains Post-Op Condition: Fair Date of Surgery/Procedure: 01/14/18 Time of Surgery/Procedure: 13:25
[2018-01-14 13:54] LABS: BODY FLUID TYPE PLEURAL
[2018-01-14] MEDS ORDERED: Sodium Chloride 0.9% 250 ML IV STA (14:00)
--- NOTE | 2018-01-14 14:27 | RAD ---
Date of service: 01/14/2018 HISTORY: Shortness of breath. COMPARISON: 12/29/2017. FINDINGS: LUNGS: Progressive consolidative changes left lung. PLEURA: Increasing left pleural effusion inseparable from consolidative change. CARDIOVASCULAR: Cardiomegaly/CHF. Atherosclerotic calcifications identified primarily aortic arch. OSSEOUS STRUCTURES: No significant abnormalities. VISUALIZED UPPER ABDOMEN: Normal. OTHER FINDINGS: None. IMPRESSION: Increasing left lower lobe infiltrate/left pleural effusion. Stable cardiomegaly/CHF.
--- NOTE | 2018-01-14 14:44 | ED PDOC ---
HPI: SOB/CHF/COPD Time Seen by Provider: 01/14/18 11:41 Chief Complaint (Nursing): Respiratory Distress Chief Complaint (Provider): SOB, sent for eval History Per: Family, Other (Dr Perez) Onset/Duration Of Symptoms: Gradual Exacerbating Factor(s): Exertion, Laying Flat Current Respiratory Medications: See Home Med List Severity: Severe Associated Symptoms: Chest Pain, Ankle/Leg Swelling, Light-headedness Recently: Treated By A Physician Additional Complaint(s): 87yo female c/o SOB and orthopnea, sent by it systems analyst Dr Perez for thoracentesis, had same procedure earlier this month, now fluid reaccumulated. Per family no fever, blood pressure borderline low in officer, cardiology adjust ed meds. Past Medical History Reviewed: Historical Data, Nursing Documentation, Vital Signs Vital Signs: Last Vital Signs Temp 98.7 F 01/14/18 13:00 Pulse 67 01/14/18 14:18 Resp 21 01/14/18 14:18 BP 98/63 L 01/14/18 14:37 Pulse Ox 100 01/14/18 14:18 - Medical History PMH: Anxiety, Asthma, Bronchitis, CAD, CHF, HTN, Hypercholesterolemia, Pneumonia Denies: Chronic Kidney Disease - Surgical History Surgical History: CABG - Family History Family History: States: Unknown Family Hx - Living Arrangements Living Arrangements: With Family - Social History Current smoker - smoking cessation education provided: No - Home Medications Home Medications: Ambulatory Orders Medication Instructions Recorded ALPRAZolam [Xanax] 0.25 mg PO Q12 PRN 08/06/17 Aspirin [Ecotrin] 81 mg PO DAILY 08/06/17 Azilsartan Medoxomil [Edarbi] 80 mg PO DAILY 08/06/17 Clopidogrel [Plavix] 75 mg PO DAILY 08/06/17 Doxazosin [Cardura] 2 mg PO HS 08/06/17 Ergocalciferol (Vitamin D2) 50,000 unit PO SUN 08/06/17 [Vitamin D2] Febuxostat [Uloric] 40 mg PO DAILY 08/06/17 Icosapent Ethyl [Vascepa] 1 cap PO BID 08/06/17 Levocetirizine Dihydrochloride 5 mg PO DAILY 08/06/17 [Xyzal] Liraglutide [Victoza 3-Rohan] 1.8 mg SC DAILY 08/06/17 Meclizine [Meclizine*] 25 mg PO DAILY PRN 08/06/17 Montelukast [Singulair] 10 mg PO HS 08/06/17 Rosuvastatin Calcium [Crestor] 10 mg PO HS 08/06/17 Furosemide 40 mg PO DAILY #30 tablet 11/05/17 Metoprolol Succinate XL [Toprol XL] 25 mg PO DAILY #30 tab 11/05/17 Sildenafil [Revatio] 20 mg PO TID #90 tab 11/05/17 - Allergies Allergies/Adverse Reactions: Allergies Allergy/AdvReac Type Severity Reaction Status Date / Time No Known Allergies Allergy Verified 01/14/18 11:48 Review of Systems Constitutional: Negative for: Fever ENT: Negative for: Throat Pain Cardiovascular: Positive for: Edema, Light Headedness Respiratory: Positive for: Cough, Shortness of Breath, SOB with Exertion. Negative for: Hemoptysis Gastrointestinal: Negative for: Abdominal Pain, Diarrhea Genitourinary Female: Negative for: Dysuria Musculoskeletal: Negative for: Neck Pain, Back Pain Skin: Negative for: Rash, Lesions Neurological: Negative for: Altered Mental Status, Headache Psych: Negative for: Suicidal ideation Physical Exam - Reviewed Nursing Documentation Reviewed: Yes Vital Signs Reviewed: Yes - Physical Exam Appears: Positive for: Non-toxic (elderly chronically ill appearing) Head Exam: Positive for: ATRAUMATIC, NORMAL INSPECTION, NORMOCEPHALIC Skin: Positive for: Normal Color, Warm, DRY Eye Exam: Positive for: EOMI, Normal appearance, PERRL ENT: Positive for: Normal ENT Inspection Neck: Positive for: Normal, Painless ROM Cardiovascular/Chest: Positive for: Regular Rate, Rhythm Respiratory: Positive for: Decreased Breath Sounds (L>R). Negative for: Wheezing, Respiratory Distress Gastrointestinal/Abdominal: Positive for: Soft. Negative for: Tenderness Back: Positive for: Normal Inspection Extremity: Positive for: Swelling (b/l LE edema 3+) Neurologic/Psych: Positive for: Alert, Oriented - ECG O2 Sat by Pulse Oximetry: 100 Medical Decision Making Medical Decision Making: IR contacted and they consented patient for thoracentesis, procedure performed upstairs and CXR taken by Dr Plascencia. 2428 Chest x-ray FINDINGS: LUNGS: Progressive consolidative changes left lung. PLEURA: Increasing left pleural effusion inseparable from consolidative change. CARDIOVASCULAR: Cardiomegaly/CHF. Atherosclerotic calcifications identified primarily aortic arch. OSSEOUS STRUCTURES: No significant abnormalities. VISUALIZED UPPER ABDOMEN: Normal. OTHER FINDINGS: None. IMPRESSION: Increasing left lower lobe infiltrate/left pleural effusion. Stable cardiomegaly/CHF. On return to ED BP borderline, gentle 250ml bolus given w awareness of hx CHF. Family states she appears better on clinical exam than prior to procedure. Endorse Dr Dr Gallegos pending labs, re-eval and d/w Dr Perez for dispo. Disposition - Clinical Impression Clinical Impression: Acute dyspnea, Pleural effusion, left - Patient ED Disposition Is Patient to be Admitted: Transfer of Care - Disposition Disposition: Transfer of Care Disposition Time: 14:48 Forms: [facility] (Montenegrin) Patient Signed Over To: Dominic Gallegos
--- NOTE | 2018-01-14 15:33 | CARD ---
APPROVED REPORT Date of service: 01/14/2018 EKG Measurement Heart [id number] <Conclusion> Normal sinus rhythm with sinus arrhythmia Left axis deviation Voltage criteria for left ventricular hypertrophy Possible Lateral infarct, age undetermined Abnormal ECG
[2018-01-14 15:36] LABS: BF GROSS APPEARANCE TURBID (CLEAR)
[2018-01-14 15:48] LABS: BODY FLUID MONO/MACROPHAGE 8 % (0-0); BODY FLUID TOTAL COUNT 100 (0-0)
[2018-01-14 16:53] LABS: BASO # 0.1 K/uL (0.0-0.2); BASO % 0.7 % (0.0-2.0); EOS # 0.2 K/uL (0.0-0.7); EOS % 2.1 % (0.0-4.0); HEMOGLOBIN 8.6 g/dL (12.0-16.0); LYMPH # 1.9 K/uL (1.0-4.3); LYMPH % 20.3 % (20.0-40.0); MEAN CELL VOLUME 85.1 fl (81.0-99.0); MEAN CORPUSCULAR HEMOGLOBIN 26.3 pg (27.0-31.0); MEAN CORPUSCULAR HGB CONC 30.9 g/dL (33.0-37.0); MONO # 0.8 K/uL (0.0-0.8); MONO % 8.6 % (0.0-10.0); NEUT # 6.5 K/uL (1.8-7.0); NEUT % 68.3 % (50.0-75.0); RBC 3.28 Mil/uL (3.80-5.20); RED CELL DISTRIBUTION WIDTH 15.4 % (11.5-14.5); WHITE BLOOD COUNT 9.5 K/uL (4.8-10.8)
[2018-01-14 17:15] LABS: ALB/GLOB RATIO 0.9 (1.0-2.1); ALBUMIN 3.2 g/dL (3.5-5.0)
--- NOTE | 2018-01-14 17:30 | ED PDOC ---
- Laboratory Results Result Diagrams: 01/14/18 16:48 01/14/18 16:48 Interpretation Of Abn Labs: 8.6 hg - ECG O2 Sat by Pulse Oximetry: 100 Pulse Ox Interpretation: Normal - Progress ED Course And Treament: 1500: Stable. Took over care from Dr. Sosa. Fu on labs and Dr. Perez. Pt. had thoracentisis by Dr. Plascencia. Feels much better. 1951: Stable. Dr. Perez spoken to. Made aware of all findings. Wants pt. to be dc. Fu with pcp and him. Continue current meds. Pt. with no dyspnea, chest pain. Feels good. Disposition - Clinical Impression Clinical Impression: Pleural effusion, left, Acute dyspnea - POA Present On Arrival: None - Disposition Referrals: Santi Perez MD [Staff Provider] - 01/17/18 Disposition: Routine/Home Disposition Time: 19:54 Condition: STABLE Additional Instructions: Return if not better in 3 days. Instructions: Thoracentesis, Pleural Effusion Forms: [facility] (Tristanian)
[2018-01-14 18:42] LABS: PROTHROMBIN TIME 11.7 Seconds (9.8-13.1)
[2018-01-14 18:44] LABS: PARTIAL THROMBOPLASTIN TIME 28.3 Seconds (25.6-37.1)
[2018-01-14 20:23] VITALS: BP 133/69; PULSE 80; RESP 18; TEMP 98.9; O2SAT 99
--- NOTE | 2018-01-17 09:09 | RAD ---
Date of service: 01/14/2018 PROCEDURE: CHEST RADIOGRAPH, 1 VIEW HISTORY: Post left thoracentesis. COMPARISON: Chest radiograph performed approximately 1 hour prior. FINDINGS: LUNGS: Stable chronic prominence of the bilateral interstitial markings with superimposed pulmonary vascular congestion. Bibasilar atelectasis. PLEURA: Decreased size of left pleural effusion post thoracentesis. Small right pleural effusion. No appreciable pneumothorax. CARDIOVASCULAR: Prior sternotomy with sternal wires and surgical clips redemonstrated. Aortic atherosclerotic calcifications. Cardiomediastinal silhouette stably enlarged. OSSEOUS STRUCTURES: Unchanged. VISUALIZED UPPER ABDOMEN: Normal. OTHER FINDINGS: None. IMPRESSION: Decreased size of left pleural effusion post thoracentesis. No appreciable pneumothorax. No other significant interval change.
--- NOTE | 2018-01-17 09:51 | US ---
PROCEDURE: Date of procedure: 01/14/2018 Procedure: 1. Ultrasound-guided left thoracentesis, CPT 58588 Medications: 1% Lidocaine HISTORY: Left pleural effusion, shortness of breath TECHNIQUE: Following informed consent ,the Patients' left chest was marked. Procedure time-out was called, and the patient was placed in the sitting position and limited ultrasound showed a large left effusion. The patient's left back was prepped and draped in the usual sterile fashion. After the skin was anesthetized with lidocaine, a drainage catheter was advanced under ultrasound guidance into the pleural space. Ultrasound-guided thoracentesis was performed. A total of 1000 cubic centimeters of straw-colored fluid removed without complication. A Xeroform dressing was applied. IMPRESSION: Ultrasound guided left thoracentesis. There were no immediate complications.
== END 2018-01-14 20:23 | disposition home or self-care (01) ==
LOC: H.ER 11:12
DX: R06.00 Dyspnea, unspecified (principal); J91.8 Pleural effusion in other conditions classified elsewhere; E78.00 Pure hypercholesterolemia, unspecified; I11.0 Hypertensive heart disease with heart failure; Z95.1 Presence of aortocoronary bypass graft; I50.9 Heart failure, unspecified; I25.10 Atherosclerotic heart disease of native coronary artery without angina pectoris; J44.9 Chronic obstructive pulmonary disease, unspecified
CPT/HCPCS: 32555; 71045; 80053; 83880; 83986; 84484; 85025; 85610; 85730; 88104; 88305; 89051; 93005; 96360; 99285; J7030

== ENCOUNTER 2018-01-25 10:51 | Inpatient (IN) | payer MEDICARE ==
[2018-01-25 10:51] VITALS: BMI 36.5
--- NOTE | 2018-01-25 11:35 | ED PDOC ---
HPI: SOB/CHF/COPD Time Seen by Provider: 01/25/18 11:14 Chief Complaint (Nursing): Shortness Of Breath Chief Complaint (Provider): Confusion History Per: Family History/Exam Limitations: no limitations Onset/Duration Of Symptoms: Days (4) Additional Complaint(s): Limited H and P due to pt. condition. Pt. with off and on confusion. She is talking with family and then has episodes where she is talking random things that are not making sense. No specific drooping of face, weakness. Pt. is on oxygen 24hrs a day and her breathing is at her baseline. No dyspnea. NIHSS Stroke Scale - Date/Time Evaluation Performed Date Performed: 01/25/18 Time Performed: 10:54 When Was NIHSS Performed: Baseline - How Severe is the Stroke Level of Consciousness: 0=Alert LOC to Questions: 0=Both comments correct LOC to commands: 0=Obeys both correctly Best Gaze: 0=Normal Visual: 0=No visual loss Facial: 0=Normal Motor Arm - Left: 1=Drift noted before 10 sec Motor Arm - Right: 1=Drift noted before 10 sec Motor Leg - Left: 1=Drift before 5 sec Motor Leg - Right: 1=Drift before 5 sec Limb Ataxia: 1=Present Upper or Lower Sensory: 0=Normal Best Language: 0=No aphasia Dysarthia: 0=Normal articulation Extinction & Inattention (Neglect): 0=Normal, no object Score: 5 rTPA Inclusion/Exclusion - Refusal of Treatment Patient Refused Treatment: No - Inclusion Criteria for Altepase Patient is 18 years or Older: Yes The Clinical Diagnosis of Ischemic Stroke That is Causing a Potentially Disabling Neurological Deficit: No Time of Onset is Well Established to be Less Than 270 Minute Before Treatment Would Begin: No Risk/Benefit Discussed With Patient/Family Member Present: No Past Medical History Reviewed: Nursing Documentation, Vital Signs Vital Signs: Last Vital Signs Temp 98.3 F 01/25/18 10:54 Pulse 87 01/25/18 10:54 Resp 20 01/25/18 10:54 BP 138/70 01/25/18 10:54 Pulse Ox 100 01/25/18 10:54 - Medical History PMH: Anxiety, Asthma, Bronchitis, CAD, CHF, HTN, Hypercholesterolemia, Pneumonia Denies: Chronic Kidney Disease - Surgical History Surgical History: CABG - Family History Family History: States: Unknown Family Hx - Living Arrangements Living Arrangements: With Family - Home Medications Home Medications: Ambulatory Orders Medication Instructions Recorded Aspirin [Ecotrin] 81 mg PO DAILY 08/06/17 Clopidogrel [Plavix] 75 mg PO DAILY 08/06/17 Rosuvastatin Calcium [Crestor] 10 mg PO QPM 08/06/17 Furosemide 40 mg PO DAILY #30 tablet 11/05/17 Metoprolol Succinate XL [Toprol XL] 25 mg PO DAILY #30 tab 11/05/17 Alprazolam [Xanax] 0.5 mg PO Q12 PRN 01/25/18 Sennosides/Docusate Sodium 1 tab PO DAILY 01/25/18 [Docusate Sodium-Senna Tablet] Sertraline [Zoloft] 25 mg PO QPM 01/25/18 Ubidecarenone [Coenzyme Q10] 100 mg PO DAILY 01/25/18 - Allergies Allergies/Adverse Reactions: Allergies Allergy/AdvReac Type Severity Reaction Status Date / Time No Known Allergies Allergy Verified 01/25/18 11:05 Review of Systems ROS Statement: Except As Marked, All Systems Reviewed And Found Negative Constitutional: Negative for: Weakness Eyes: Negative for: Vision Change ENT: Negative for: Nose Congestion Cardiovascular: Negative for: Chest Pain Respiratory: Negative for: Cough, Shortness of Breath Neurological: Positive for: Confusion, Altered Mental Status Physical Exam - Reviewed Nursing Documentation Reviewed: Yes Vital Signs Reviewed: Yes - Physical Exam Appears: Positive for: Uncomfortable Head Exam: Positive for: ATRAUMATIC, NORMAL INSPECTION, NORMOCEPHALIC Skin: Positive for: Normal Color, Warm, DRY Eye Exam: Positive for: EOMI, Normal appearance, PERRL ENT: Positive for: Normal ENT Inspection Neck: Positive for: Normal, Painless ROM, Supple Cardiovascular/Chest: Positive for: Regular Rate, Rhythm Respiratory: Positive for: Decreased Breath Sounds Gastrointestinal/Abdominal: Positive for: Normal Exam, Soft. Negative for: Tenderness Back: Positive for: Normal Inspection. Negative for: L CVA Tenderness, R CVA Tenderness Extremity: Positive for: Pedal Edema (chronic to improved compared to previous per family). Negative for: Normal ROM (limited as pt. was not following commands for this exam.), Tenderness, Calf Tenderness Neurologic/Psych: Positive for: Alert, caretaker resort II-XII, Other (pt. follows some commands, others she does not; responds to select things. ). Negative for: Oriented, Aphasia, Facial Droop - Laboratory Results Result Diagrams: 01/25/18 13:20 01/25/18 12:00 Interpretation Of Abn Labs: elevated probnp, worsening bun/cr - ECG ECG: Positive for: Interpreted By Me, Viewed By Me ECG Rhythm: Positive for: Sinus Rhythm, Nonspecific Changes O2 Sat by Pulse Oximetry: 100 Pulse Ox Interpretation: Normal - Radiology X-Ray: Read By Radiologist X-Ray Interpretation: Other (pleural effusions; vasc congestion) - Progress ED Course And Treament: 1423: Pt. is aaox3. Has capacity to make decisions. Went to ct scan 2x and refuses each time as she does not want to lay down. Will give duoneb and put on bipap as pt. sats coming down a bit to 87-88. 1451: Pt. refusing CT. Family agrees pt. is AAOx3 and agrees with her wishes. Will admit for confusion and chf/copd. Dr. Miles resident will discuss CT head with pt. later today. - Critical Care Total Time (In Min): 30 Documented Critical Care: Time excludes all time spent performint seperately billable procedures Disposition - Clinical Impression Clinical Impression: Acute CHF, COPD exacerbation, Confusion, Pleural effusion - Patient ED Disposition Is Patient to be Admitted: Yes Counseled Patient/Family Regarding: Studies Performed, Diagnosis - Disposition Disposition Time: 14:59 Condition: FAIR - Pt Status Changed To: Hospital Disposition Of: Inpatient - Admit Certification Admit to Inpatient:: After my assessment, the patient will require hospitalization for at least two midnights. This is because of the severity of symptoms shown, intensity of services needed, and/or the medical risk in this patient being treated as an outpatient. - POA Present On Arrival: None
[2018-01-25 12:11] LABS: ABG ALLEN TEST YES; ARTERIAL BLOOD GAS HCO3 38.3 mmol/L (21-28); ARTERIAL BLOOD GAS O2 SAT 79.6 % (95-98); ARTERIAL BLOOD GAS PCO2 87 mm/Hg (35-45); ARTERIAL BLOOD GAS PH 7.34 (7.35-7.45); ARTERIAL BLOOD GAS PO2 44 mm/Hg (80-100); ARTERIAL BLOOD GAS TCO2 49.6 mmol/L (22-28)
[2018-01-25 12:20] LABS: INR 1.2; PROTHROMBIN TIME 13.7 Seconds (9.8-13.1)
[2018-01-25 12:22] LABS: PARTIAL THROMBOPLASTIN TIME 26.8 Seconds (25.6-37.1)
[2018-01-25 12:26] LABS: ABG ALLEN TEST YES; ARTERIAL BLOOD GAS HCO3 23.5 mmol/L (21-28); ARTERIAL BLOOD GAS O2 SAT 100.5 % (95-98); ARTERIAL BLOOD GAS PCO2 34 mm/Hg (35-45); ARTERIAL BLOOD GAS PH 7.42 (7.35-7.45); ARTERIAL BLOOD GAS PO2 107 mm/Hg (80-100); ARTERIAL BLOOD GAS TCO2 23.1 mmol/L (22-28)
[2018-01-25] MEDS: Sodium Chloride 0.9% 250 ML IV SCH ×2 (12:26→16:11)
[2018-01-25 12:36] LABS: ALBUMIN 3.6 g/dL (3.5-5.0); CALCIUM 9.1 mg/dL (8.4-10.2)
[2018-01-25 12:40] LABS: TROPONIN I 0.051 ng/mL (0.00-0.120)
--- NOTE | 2018-01-25 13:25 | RAD ---
Date of service: 01/25/2018 HISTORY: Code Stroke COMPARISON: 01/14/2018 FINDINGS: LUNGS: There is moderate pulmonary venous congestion. PLEURA: Loculated small right and large left pleural effusions, worse since the prior examination. No pneumothorax. CARDIOVASCULAR: The heart remains enlarged. Status post CABG Atherosclerotic aortic arch calcifications are present. OSSEOUS STRUCTURES: Within normal limits for the patient's age. VISUALIZED UPPER ABDOMEN: Normal. OTHER FINDINGS: None. IMPRESSION: Worsening bilateral loculated pleural effusions, larger on the left. Moderate pulmonary venous congestion.
[2018-01-25 13:39] LABS: BASO % 0.4 % (0.0-2.0); EOS % 0.3 % (0.0-4.0); HEMOGLOBIN 9.6 g/dL (12.0-16.0); LYMPH # 1.6 K/uL (1.0-4.3); LYMPH % 13.1 % (20.0-40.0); MEAN CELL VOLUME 86.8 fl (81.0-99.0); MEAN CORPUSCULAR HEMOGLOBIN 26.1 pg (27.0-31.0); MEAN PLATELET VOLUME 9.7 fl (7.2-11.7); MONO % 8.7 % (0.0-10.0); NEUT # 9.3 K/uL (1.8-7.0); NEUT % 77.5 % (50.0-75.0); NRBC % 0.1 % (0.0-0.0); RBC 3.67 Mil/uL (3.80-5.20); RED CELL DISTRIBUTION WIDTH 16.8 % (11.5-14.5); WHITE BLOOD COUNT 12.1 K/uL (4.8-10.8)
[2018-01-25] MEDS ORDERED: Albuterol-Ipratrop 3 mg / 0.5 (3 ml) UD INH STA (14:11)
[2018-01-25] MEDS ORDERED: Albuterol-Ipratrop 3 mg / 0.5 (3 ml) UD IH STA (14:11)
[2018-01-25] MEDS ORDERED: Furosemide 100 MG in Sodium Chloride 0.9% 100 ML IV SCH (16:15)
--- NOTE | 2018-01-25 17:48 | CP.CCUPN ---
<Emmett Reagan - Last Filed: 01/25/18 18:14> CCU Subjective - Physician Review Subjective (Free Text): 01/25/18 17:45 87 yo F with pmhx of CAD with recent CABG (2 vessel), HTN, dyslipidemia, CHF admitted for CHF exacerbation. Pt presented with SOB and AMS. pt on 2 L home O2 History per son and grandson: Pt recently had pleural tap, removing 1 L 10 days prior and 1.5 L 2 weeks before. ER: she was given IV lasix 40 mg x1, duoneb, methylprednisolone. ABG reviewed and pt was subsequently placed on BiPap. Print Developer Automatic: Dr. Perez CCU Objective - Vital Signs / Intake & Output Vital Signs (Last 4 hours): Vital Signs Pulse BP Pulse Ox 01/25/18 15:40 162/62 H 01/25/18 14:59 100 01/25/18 14:34 89 01/25/18 14:32 89 Intake and Output (Last 8hrs): Intake & Output 01/25/18 01/25/18 01/25/18 06:59 14:59 22:59 Weight 180 lb - Physical Exam Physical Exam Limitations: Positive for: Altered Mental Status Abdomen: Positive for: Normal Bowel Sounds - Medications Active Medications: Active Medications Generic Name Dose Route Start Last Admin Trade Name Freq PRN Reason Stop Dose Admin Alprazolam 0.5 mg 01/25/18 15:34 Xanax PO Q12 PRN Anxiety Aspirin 81 mg 01/26/18 09:00 Ecotrin PO DAILY [facility] Atorvastatin Calcium 20 mg 01/25/18 21:00 Lipitor PO DAILY [facility] Clopidogrel Bisulfate 75 mg 01/26/18 09:00 Plavix PO DAILY TOD Furosemide 40 mg 01/26/18 09:00 Lasix PO DAILY TOD Home Med 100 mg 01/26/18 09:00 Ubidecarenone [Coenzyme Q10] PO DAILY TOD Sodium Chloride 250 mls @ 100 mls/hr 01/25/18 11:30 01/25/18 16:11 Sodium Chloride 0.9% IV 100 mls/hr .Q2H30M TOD Administration Furosemide 100 mg/ Sodium 100 mls @ 10 mls/hr 01/25/18 16:15 Chloride IV .Q10H TOD Protocol 10 MG/HR Metoprolol Succinate 25 mg 01/26/18 09:00 Toprol Xl PO DAILY TOD Senna/Docusate Sodium 1 tab 01/25/18 22:00 Senokot S 50 Mg-8.6 Mg PO HS TOD Sertraline HCl 25 mg 01/25/18 18:00 Zoloft PO QPM TOD - Patient Studies Lab Studies: Lab Studies 01/25/18 01/25/18 01/25/18 Range/Units 13:20 12:40 12:12 WBC 12.1 H (4.8-10.8) K/uL RBC 3.67 L (3.80-5.20) Mil/uL Hgb 9.6 L (12.0-16.0) g/dL Hct 31.8 L (34.0-47.0) % MCV 86.8 (81.0-99.0) fl MCH 26.1 L (27.0-31.0) pg MCHC 30.0 L (33.0-37.0) g/dL RDW 16.8 H (11.5-14.5) % Plt Count 225 (130-400) K/uL MPV 9.7 (7.2-11.7) fl Neut % (Auto) 77.5 H (50.0-75.0) % Lymph % (Auto) 13.1 L (20.0-40.0) % Amelia % (Auto) 8.7 (0.0-10.0) % Eos % (Auto) 0.3 (0.0-4.0) % Baso % (Auto) 0.4 (0.0-2.0) % Neut # (Auto) 9.3 H (1.8-7.0) K/uL Lymph # (Auto) 1.6 (1.0-4.3) K/uL Amelia # (Auto) 1.0 H (0.0-0.8) K/uL Eos # (Auto) 0.0 (0.0-0.7) K/uL Baso # (Auto) 0.0 (0.0-0.2) K/uL PT (9.8-13.1) Seconds INR APTT (25.6-37.1) Seconds pCO2 34 L (35-45) mm/Hg pO2 107 H (80-100) mm/Hg HCO3 23.5 (21-28) mmol/L ABG pH 7.42 (7.35-7.45) ABG Total CO2 23.1 (22-28) mmol/L ABG O2 Saturation 100.5 H (95-98) % ABG Base Excess -1.7 (-2.0-3.0) mmol/L Eloy Test Yes ABG Potassium 4.3 (3.6-5.2) mmol/L A-a O2 Difference 79.0 mm/Hg Sodium 138.0 (132-148) mmol/L Chloride 111.0 H (98-107) mmol/L Glucose 116 H (65-105) mg/dL Lactate 2.8 H (0.7-2.1) mmol/L Vent Mode Nc FiO2 32.0 % Blood Gas Comments Crit Value Called To Crit Value Called By Crit Value Read Back Blood Gas Notified Time Potassium (3.6-5.0) MMOL/L Carbon Dioxide (22-30) mmol/L Anion Gap (10-20) BUN (7-17) mg/dl Creatinine (0.7-1.2) mg/dl Est GFR ( Amer) Est GFR (Non-Af Amer) Random Glucose (65-105) mg/dL Hemoglobin A1c (4.2-6.5) % Calcium (8.4-10.2) mg/dL Total Bilirubin (0.2-1.3) mg/dl AST (14-36) U/L ALT (9-52) U/L Alkaline Phosphatase (38-126) U/L Ammonia 23 (11-51) umo/L Troponin I (0.00-0.120) ng/mL NT-Pro-B Natriuret Pep (0-900) pg/ml Total Protein (6.3-8.2) G/DL Albumin (3.5-5.0) g/dL Globulin (2.2-3.9) gm/dL Albumin/Globulin Ratio (1.0-2.1) Triglycerides (0-149) mg/DL Cholesterol (0-199) mg/dL LDL Cholesterol Direct (0-129) mg/dL HDL Cholesterol (30-70) MG/DL Arterial Blood Potassium 4.3 (3.6-5.2) mmol/L Blood Type Antibody Screen BBK History Checked 01/25/18 01/25/18 01/25/18 Range/Units 12:00 12:00 12:00 WBC (4.8-10.8) K/uL RBC (3.80-5.20) Mil/uL Hgb (12.0-16.0) g/dL Hct (34.0-47.0) % MCV (81.0-99.0) fl MCH (27.0-31.0) pg MCHC (33.0-37.0) g/dL RDW (11.5-14.5) % Plt Count (130-400) K/uL MPV (7.2-11.7) fl Neut % (Auto) (50.0-75.0) % Lymph % (Auto) (20.0-40.0) % Amelia % (Auto) (0.0-10.0) % Eos % (Auto) (0.0-4.0) % Baso % (Auto) (0.0-2.0) % Neut # (Auto) (1.8-7.0) K/uL Lymph # (Auto) (1.0-4.3) K/uL Amelia # (Auto) (0.0-0.8) K/uL Eos # (Auto) (0.0-0.7) K/uL Baso # (Auto) (0.0-0.2) K/uL PT 13.7 H (9.8-13.1) Seconds INR 1.2 APTT 26.8 (25.6-37.1) Seconds pCO2 (35-45) mm/Hg pO2 (80-100) mm/Hg HCO3 (21-28) mmol/L ABG pH (7.35-7.45) ABG Total CO2 (22-28) mmol/L ABG O2 Saturation (95-98) % ABG Base Excess (-2.0-3.0) mmol/L Eloy Test ABG Potassium (3.6-5.2) mmol/L A-a O2 Difference mm/Hg Sodium (132-148) mmol/L Chloride (98-107) mmol/L Glucose (65-105) mg/dL Lactate (0.7-2.1) mmol/L Vent Mode FiO2 % Blood Gas Comments Crit Value Called To Crit Value Called By Crit Value Read Back Blood Gas Notified Time Potassium (3.6-5.0) MMOL/L Carbon Dioxide (22-30) mmol/L Anion Gap (10-20) BUN (7-17) mg/dl Creatinine (0.7-1.2) mg/dl Est GFR ( Amer) Est GFR (Non-Af Amer) Random Glucose (65-105) mg/dL Hemoglobin A1c 5.4 (4.2-6.5) % Calcium (8.4-10.2) mg/dL Total Bilirubin (0.2-1.3) mg/dl AST (14-36) U/L ALT (9-52) U/L Alkaline Phosphatase (38-126) U/L Ammonia (11-51) umo/L Troponin I (0.00-0.120) ng/mL NT-Pro-B Natriuret Pep (0-900) pg/ml Total Protein (6.3-8.2) G/DL Albumin (3.5-5.0) g/dL Globulin (2.2-3.9) gm/dL Albumin/Globulin Ratio (1.0-2.1) Triglycerides (0-149) mg/DL Cholesterol (0-199) mg/dL LDL Cholesterol Direct (0-129) mg/dL HDL Cholesterol (30-70) MG/DL Arterial Blood Potassium (3.6-5.2) mmol/L Blood Type O POSITIVE Antibody Screen Negative BBK History Checked No verified bt 01/25/18 01/25/18 Range/Units 12:00 11:29 WBC (4.8-10.8) K/uL RBC (3.80-5.20) Mil/uL Hgb (12.0-16.0) g/dL Hct (34.0-47.0) % MCV (81.0-99.0) fl MCH (27.0-31.0) pg MCHC (33.0-37.0) g/dL RDW (11.5-14.5) % Plt Count (130-400) K/uL MPV (7.2-11.7) fl Neut % (Auto) (50.0-75.0) % Lymph % (Auto) (20.0-40.0) % Amelia % (Auto) (0.0-10.0) % Eos % (Auto) (0.0-4.0) % Baso % (Auto) (0.0-2.0) % Neut # (Auto) (1.8-7.0) K/uL Lymph # (Auto) (1.0-4.3) K/uL Amelia # (Auto) (0.0-0.8) K/uL Eos # (Auto) (0.0-0.7) K/uL Baso # (Auto) (0.0-0.2) K/uL PT (9.8-13.1) Seconds INR APTT (25.6-37.1) Seconds pCO2 87 H* (35-45) mm/Hg pO2 44 L* (80-100) mm/Hg HCO3 38.3 H (21-28) mmol/L ABG pH 7.34 L (7.35-7.45) ABG Total CO2 49.6 H (22-28) mmol/L ABG O2 Saturation 79.6 L (95-98) % ABG Base Excess 17.7 H (-2.0-3.0) mmol/L Eloy Test Yes ABG Potassium 4.0 (3.6-5.2) mmol/L A-a O2 Difference mm/Hg Sodium 139 139.0 (132-148) mmol/L Chloride 90 L 93.0 L (98-107) mmol/L Glucose 121 H (65-105) mg/dL Lactate 2.0 (0.7-2.1) mmol/L Vent Mode FiO2 21.0 % Blood Gas Comments Vbg Crit Value Called To Shannon zayas r.n. Crit Value Called By Lilli Crit Value Read Back Y Blood Gas Notified Time 1210 Potassium 4.1 (3.6-5.0) MMOL/L Carbon Dioxide 38 H (22-30) mmol/L Anion Gap 15 (10-20) BUN 73 H (7-17) mg/dl Creatinine 3.3 H (0.7-1.2) mg/dl Est GFR ( Amer) 16 Est GFR (Non-Af Amer) 13 Random Glucose 119 H (65-105) mg/dL Hemoglobin A1c (4.2-6.5) % Calcium 9.1 (8.4-10.2) mg/dL Total Bilirubin 0.9 (0.2-1.3) mg/dl AST 290 H D (14-36) U/L ALT 297 H D (9-52) U/L Alkaline Phosphatase 68 (38-126) U/L Ammonia (11-51) umo/L Troponin I 0.0510 (0.00-0.120) ng/mL NT-Pro-B Natriuret Pep [id number] H (0-900) pg/ml Total Protein 7.1 (6.3-8.2) G/DL Albumin 3.6 (3.5-5.0) g/dL Globulin 3.5 (2.2-3.9) gm/dL Albumin/Globulin Ratio 1.0 (1.0-2.1) Triglycerides 121 (0-149) mg/DL Cholesterol 140 (0-199) mg/dL LDL Cholesterol Direct 91 (0-129) mg/dL HDL Cholesterol 37 (30-70) MG/DL Arterial Blood Potassium 4.0 (3.6-5.2) mmol/L Blood Type Antibody Screen BBK History Checked Laboratory Results - last 24 hr 01/25/18 01/25/18 01/25/18 11:29 12:00 12:00 WBC RBC Hgb Hct MCV MCH MCHC RDW Plt Count MPV Neut % (Auto) Lymph % (Auto) Amelia % (Auto) Eos % (Auto) Baso % (Auto) Neut # (Auto) Lymph # (Auto) Amelia # (Auto) Eos # (Auto) Baso # (Auto) PT INR APTT pCO2 87 H* pO2 44 L* HCO3 38.3 H ABG pH 7.34 L ABG Total CO2 49.6 H ABG O2 Saturation 79.6 L ABG Base Excess 17.7 H Eloy Test Yes ABG Potassium 4.0 A-a O2 Difference Sodium 139.0 139 Chloride 93.0 L 90 L Glucose 121 H Lactate 2.0 Vent Mode FiO2 21.0 Blood Gas Comments Vbg Crit Value Called To Shannon zayas r.n. Crit Value Called By Lilli Crit Value Read Back Y Blood Gas Notified Time 1210 Potassium 4.1 Carbon Dioxide 38 H Anion Gap 15 BUN 73 H Creatinine 3.3 H Est GFR ( Amer) 16 Est GFR (Non-Af Amer) 13 Random Glucose 119 H Hemoglobin A1c 5.4 Calcium 9.1 Total Bilirubin 0.9 AST 290 H D ALT 297 H D Alkaline Phosphatase 68 Ammonia Troponin I 0.0510 NT-Pro-B Natriuret Pep [id number] H Total Protein 7.1 Albumin 3.6 Globulin 3.5 Albumin/Globulin Ratio 1.0 Triglycerides 121 Cholesterol 140 LDL Cholesterol Direct 91 HDL Cholesterol 37 Arterial Blood Potassium 4.0 Blood Type Antibody Screen BBK History Checked 01/25/18 01/25/18 01/25/18 12:00 12:00 12:12 WBC RBC Hgb Hct MCV MCH MCHC RDW Plt Count MPV Neut % (Auto) Lymph % (Auto) Amelia % (Auto) Eos % (Auto) Baso % (Auto) Neut # (Auto) Lymph # (Auto) Amelia # (Auto) Eos # (Auto) Baso # (Auto) PT 13.7 H INR 1.2 APTT 26.8 pCO2 34 L pO2 107 H HCO3 23.5 ABG pH 7.42 ABG Total CO2 23.1 ABG O2 Saturation 100.5 H ABG Base Excess -1.7 Eloy Test Yes ABG Potassium 4.3 A-a O2 Difference 79.0 Sodium 138.0 Chloride 111.0 H Glucose 116 H Lactate 2.8 H Vent Mode Nc FiO2 32.0 Blood Gas Comments Crit Value Called To Crit Value Called By Crit Value Read Back Blood Gas Notified Time Potassium Carbon Dioxide Anion Gap BUN Creatinine Est GFR ( Amer) Est GFR (Non-Af Amer) Random Glucose Hemoglobin A1c Calcium Total Bilirubin AST ALT Alkaline Phosphatase Ammonia Troponin I NT-Pro-B Natriuret Pep Total Protein Albumin Globulin Albumin/Globulin Ratio Triglycerides Cholesterol LDL Cholesterol Direct HDL Cholesterol Arterial Blood Potassium 4.3 Blood Type O POSITIVE Antibody Screen Negative BBK History Checked No verified bt 01/25/18 01/25/18 12:40 13:20 WBC 12.1 H RBC 3.67 L Hgb 9.6 L Hct 31.8 L MCV 86.8 MCH 26.1 L MCHC 30.0 L RDW 16.8 H Plt Count 225 MPV 9.7 Neut % (Auto) 77.5 H Lymph % (Auto) 13.1 L Amelia % (Auto) 8.7 Eos % (Auto) 0.3 Baso % (Auto) 0.4 Neut # (Auto) 9.3 H Lymph # (Auto) 1.6 Amelia # (Auto) 1.0 H Eos # (Auto) 0.0 Baso # (Auto) 0.0 PT INR APTT pCO2 pO2 HCO3 ABG pH ABG Total CO2 ABG O2 Saturation ABG Base Excess Eloy Test ABG Potassium A-a O2 Difference Sodium Chloride Glucose Lactate Vent Mode FiO2 Blood Gas Comments Crit Value Called To Crit Value Called By Crit Value Read Back Blood Gas Notified Time Potassium Carbon Dioxide Anion Gap BUN Creatinine Est GFR ( Amer) Est GFR (Non-Af Amer) Random Glucose Hemoglobin A1c Calcium Total Bilirubin AST ALT Alkaline Phosphatase Ammonia 23 Troponin I NT-Pro-B Natriuret Pep Total Protein Albumin Globulin Albumin/Globulin Ratio Triglycerides Cholesterol LDL Cholesterol Direct HDL Cholesterol Arterial Blood Potassium Blood Type Antibody Screen BBK History Checked EKG/Cardiology Studies: Cardiology / EKG Studies 01/25/18 11:29 ELECTROCARDIOGRAM Stat Comment: Mode Of Transportation: Reason For Exam: cva eval Fingerstick Blood Sugar Results: 137 Review of Systems - Review of Systems Systems not reviewed;Unavailable: Other (pt on bipap machine and not alert) Assessment/Plan - Assessment and Plan (Free Text) Assessment: 87 yo F with pmhx of CAD with recent CABG (2 vessel), HTN, dyslipidemia, CHF admitted for CHF exacerbation. Plan: CHF exacerbation -BNP: [id number] -IV lasix 40 mg qD -Cardiology: Dr. Perez -No empiric antibiotics: afebrile, mild leukocytosis, BIPAP: -Ventilation support -Pt was noted to have desaturation to 87-88% in ED -ABG reviewed -Pulmonology: Dr. Marie History of CABG -Cardiology: Dr. Perez -Troponin negative x1 Loculated Pleural Effusion -CXR -Hx of multiple pleural tap -Surgery consulted: Dr. Romeo; possible chest tube -Culture of pleural effusion Elevated BUN/Cr: -BUN/Cr: 73/3.3 -Nephrology: Dr. Tellez HTN -Continue home meds DM2 -Continue home meds -ISS -Accucheck DVT prophylaxis -SCDs Code Status: Full code Next of Kin: Son Case dw Dr. Monster Reagan MD PGY2 <Giovani Hook - Last Filed: 01/25/18 18:31> CCU Objective - Vital Signs / Intake & Output Vital Signs (Last 4 hours): Vital Signs Temp Pulse Resp BP Pulse Ox 01/25/18 17:47 102 H 20 155/90 H 96 01/25/18 16:16 98 F 102 H 22 155/90 H 98 01/25/18 15:40 162/62 H 01/25/18 14:59 100 01/25/18 14:34 89 01/25/18 14:32 89 Intake and Output (Last 8hrs): Intake & Output 01/25/18 01/25/18 01/25/18 06:59 14:59 22:59 Weight 180 lb - Medications Active Medications: Active Medications Generic Name Dose Route Start Last Admin Trade Name Freq PRN Reason Stop Dose Admin Alprazolam 0.5 mg 01/25/18 15:34 Xanax PO Q12 PRN Anxiety Aspirin 81 mg 01/26/18 09:00 Ecotrin PO DAILY [facility] Atorvastatin Calcium 20 mg 01/25/18 21:00 Lipitor PO DAILY [facility] Clopidogrel Bisulfate 75 mg 01/26/18 09:00 Plavix PO DAILY [facility] Furosemide 40 mg 01/26/18 09:00 Lasix PO DAILY [facility] Home Med 100 mg 01/26/18 09:00 Ubidecarenone [Coenzyme Q10] PO DAILY [facility] Sodium Chloride 250 mls @ 100 mls/hr 01/25/18 11:30 01/25/18 16:11 Sodium Chloride 0.9% IV 100 mls/hr .Q2H30M [facility] Administration Furosemide 100 mg/ Sodium 100 mls @ 10 mls/hr 01/25/18 16:15 Chloride IV .Q10H [facility] Protocol 10 MG/HR Metoprolol Succinate 25 mg 01/26/18 09:00 Toprol Xl PO DAILY [facility] Senna/Docusate Sodium 1 tab 01/25/18 22:00 Senokot S 50 Mg-8.6 Mg PO HS [facility] Sertraline HCl 25 mg 01/25/18 18:00 Zoloft PO QPM TOD - Patient Studies Lab Studies: Lab Studies 01/25/18 01/25/18 01/25/18 Range/Units 13:20 12:40 12:12 WBC 12.1 H (4.8-10.8) K/uL RBC 3.67 L (3.80-5.20) Mil/uL Hgb 9.6 L (12.0-16.0) g/dL Hct 31.8 L (34.0-47.0) % MCV 86.8 (81.0-99.0) fl MCH 26.1 L (27.0-31.0) pg MCHC 30.0 L (33.0-37.0) g/dL RDW 16.8 H (11.5-14.5) % Plt Count 225 (130-400) K/uL MPV 9.7 (7.2-11.7) fl Neut % (Auto) 77.5 H (50.0-75.0) % Lymph % (Auto) 13.1 L (20.0-40.0) % Amelia % (Auto) 8.7 (0.0-10.0) % Eos % (Auto) 0.3 (0.0-4.0) % Baso % (Auto) 0.4 (0.0-2.0) % Neut # (Auto) 9.3 H (1.8-7.0) K/uL Lymph # (Auto) 1.6 (1.0-4.3) K/uL Amelia # (Auto) 1.0 H (0.0-0.8) K/uL Eos # (Auto) 0.0 (0.0-0.7) K/uL Baso # (Auto) 0.0 (0.0-0.2) K/uL PT (9.8-13.1) Seconds INR APTT (25.6-37.1) Seconds pCO2 34 L (35-45) mm/Hg pO2 107 H (80-100) mm/Hg HCO3 23.5 (21-28) mmol/L ABG pH 7.42 (7.35-7.45) ABG Total CO2 23.1 (22-28) mmol/L ABG O2 Saturation 100.5 H (95-98) % ABG Base Excess -1.7 (-2.0-3.0) mmol/L Eloy Test Yes ABG Potassium 4.3 (3.6-5.2) mmol/L A-a O2 Difference 79.0 mm/Hg Sodium 138.0 (132-148) mmol/L Chloride 111.0 H (98-107) mmol/L Glucose 116 H (65-105) mg/dL Lactate 2.8 H (0.7-2.1) mmol/L Vent Mode Nc FiO2 32.0 % Blood Gas Comments Crit Value Called To Crit Value Called By Crit Value Read Back Blood Gas Notified Time Potassium (3.6-5.0) MMOL/L Carbon Dioxide (22-30) mmol/L Anion Gap (10-20) BUN (7-17) mg/dl Creatinine (0.7-1.2) mg/dl Est GFR ( Amer) Est GFR (Non-Af Amer) Random Glucose (65-105) mg/dL Hemoglobin A1c (4.2-6.5) % Calcium (8.4-10.2) mg/dL Total Bilirubin (0.2-1.3) mg/dl AST (14-36) U/L ALT (9-52) U/L Alkaline Phosphatase (38-126) U/L Ammonia 23 (11-51) umo/L Troponin I (0.00-0.120) ng/mL NT-Pro-B Natriuret Pep (0-900) pg/ml Total Protein (6.3-8.2) G/DL Albumin (3.5-5.0) g/dL Globulin (2.2-3.9) gm/dL Albumin/Globulin Ratio (1.0-2.1) Triglycerides (0-149) mg/DL Cholesterol (0-199) mg/dL LDL Cholesterol Direct (0-129) mg/dL HDL Cholesterol (30-70) MG/DL Arterial Blood Potassium 4.3 (3.6-5.2) mmol/L Blood Type Antibody Screen BBK History Checked 01/25/18 01/25/18 01/25/18 Range/Units 12:00 12:00 12:00 WBC (4.8-10.8) K/uL RBC (3.80-5.20) Mil/uL Hgb (12.0-16.0) g/dL Hct (34.0-47.0) % MCV (81.0-99.0) fl MCH (27.0-31.0) pg MCHC (33.0-37.0) g/dL RDW (11.5-14.5) % Plt Count (130-400) K/uL MPV (7.2-11.7) fl Neut % (Auto) (50.0-75.0) % Lymph % (Auto) (20.0-40.0) % Amelia % (Auto) (0.0-10.0) % Eos % (Auto) (0.0-4.0) % Baso % (Auto) (0.0-2.0) % Neut # (Auto) (1.8-7.0) K/uL Lymph # (Auto) (1.0-4.3) K/uL Amelia # (Auto) (0.0-0.8) K/uL Eos # (Auto) (0.0-0.7) K/uL Baso # (Auto) (0.0-0.2) K/uL PT 13.7 H (9.8-13.1) Seconds INR 1.2 APTT 26.8 (25.6-37.1) Seconds pCO2 (35-45) mm/Hg pO2 (80-100) mm/Hg HCO3 (21-28) mmol/L ABG pH (7.35-7.45) ABG Total CO2 (22-28) mmol/L ABG O2 Saturation (95-98) % ABG Base Excess (-2.0-3.0) mmol/L Eloy Test ABG Potassium (3.6-5.2) mmol/L A-a O2 Difference mm/Hg Sodium (132-148) mmol/L Chloride (98-107) mmol/L Glucose (65-105) mg/dL Lactate (0.7-2.1) mmol/L Vent Mode FiO2 % Blood Gas Comments Crit Value Called To Crit Value Called By Crit Value Read Back Blood Gas Notified Time Potassium (3.6-5.0) MMOL/L Carbon Dioxide (22-30) mmol/L Anion Gap (10-20) BUN (7-17) mg/dl Creatinine (0.7-1.2) mg/dl Est GFR ( Amer) Est GFR (Non-Af Amer) Random Glucose (65-105) mg/dL Hemoglobin A1c 5.4 (4.2-6.5) % Calcium (8.4-10.2) mg/dL Total Bilirubin (0.2-1.3) mg/dl AST (14-36) U/L ALT (9-52) U/L Alkaline Phosphatase (38-126) U/L Ammonia (11-51) umo/L Troponin I (0.00-0.120) ng/mL NT-Pro-B Natriuret Pep (0-900) pg/ml Total Protein (6.3-8.2) G/DL Albumin (3.5-5.0) g/dL Globulin (2.2-3.9) gm/dL Albumin/Globulin Ratio (1.0-2.1) Triglycerides (0-149) mg/DL Cholesterol (0-199) mg/dL LDL Cholesterol Direct (0-129) mg/dL HDL Cholesterol (30-70) MG/DL Arterial Blood Potassium (3.6-5.2) mmol/L Blood Type O POSITIVE Antibody Screen Negative BBK History Checked No verified bt 01/25/18 01/25/18 Range/Units 12:00 11:29 WBC (4.8-10.8) K/uL RBC (3.80-5.20) Mil/uL Hgb (12.0-16.0) g/dL Hct (34.0-47.0) % MCV (81.0-99.0) fl MCH (27.0-31.0) pg MCHC (33.0-37.0) g/dL RDW (11.5-14.5) % Plt Count (130-400) K/uL MPV (7.2-11.7) fl Neut % (Auto) (50.0-75.0) % Lymph % (Auto) (20.0-40.0) % Amelia % (Auto) (0.0-10.0) % Eos % (Auto) (0.0-4.0) % Baso % (Auto) (0.0-2.0) % Neut # (Auto) (1.8-7.0) K/uL Lymph # (Auto) (1.0-4.3) K/uL Amelia # (Auto) (0.0-0.8) K/uL Eos # (Auto) (0.0-0.7) K/uL Baso # (Auto) (0.0-0.2) K/uL PT (9.8-13.1) Seconds INR APTT (25.6-37.1) Seconds pCO2 87 H* (35-45) mm/Hg pO2 44 L* (80-100) mm/Hg HCO3 38.3 H (21-28) mmol/L ABG pH 7.34 L (7.35-7.45) ABG Total CO2 49.6 H (22-28) mmol/L ABG O2 Saturation 79.6 L (95-98) % ABG Base Excess 17.7 H (-2.0-3.0) mmol/L Eloy Test Yes ABG Potassium 4.0 (3.6-5.2) mmol/L A-a O2 Difference mm/Hg Sodium 139 139.0 (132-148) mmol/L Chloride 90 L 93.0 L (98-107) mmol/L Glucose 121 H (65-105) mg/dL Lactate 2.0 (0.7-2.1) mmol/L Vent Mode FiO2 21.0 % Blood Gas Comments Vbg Crit Value Called To Shannon zayas r.n. Crit Value Called By Lilli Crit Value Read Back Y Blood Gas Notified Time 1210 Potassium 4.1 (3.6-5.0) MMOL/L Carbon Dioxide 38 H (22-30) mmol/L Anion Gap 15 (10-20) BUN 73 H (7-17) mg/dl Creatinine 3.3 H (0.7-1.2) mg/dl Est GFR ( Amer) 16 Est GFR (Non-Af Amer) 13 Random Glucose 119 H (65-105) mg/dL Hemoglobin A1c (4.2-6.5) % Calcium 9.1 (8.4-10.2) mg/dL Total Bilirubin 0.9 (0.2-1.3) mg/dl AST 290 H D (14-36) U/L ALT 297 H D (9-52) U/L Alkaline Phosphatase 68 (38-126) U/L Ammonia (11-51) umo/L Troponin I 0.0510 (0.00-0.120) ng/mL NT-Pro-B Natriuret Pep [id number] H (0-900) pg/ml Total Protein 7.1 (6.3-8.2) G/DL Albumin 3.6 (3.5-5.0) g/dL Globulin 3.5 (2.2-3.9) gm/dL Albumin/Globulin Ratio 1.0 (1.0-2.1) Triglycerides 121 (0-149) mg/DL Cholesterol 140 (0-199) mg/dL LDL Cholesterol Direct 91 (0-129) mg/dL HDL Cholesterol 37 (30-70) MG/DL Arterial Blood Potassium 4.0 (3.6-5.2) mmol/L Blood Type Antibody Screen BBK History Checked Laboratory Results - last 24 hr 01/25/18 01/25/18 01/25/18 11:29 12:00 12:00 WBC RBC Hgb Hct MCV MCH MCHC RDW Plt Count MPV Neut % (Auto) Lymph % (Auto) Amelia % (Auto) Eos % (Auto) Baso % (Auto) Neut # (Auto) Lymph # (Auto) Amelia # (Auto) Eos # (Auto) Baso # (Auto) PT INR APTT pCO2 87 H* pO2 44 L* HCO3 38.3 H ABG pH 7.34 L ABG Total CO2 49.6 H ABG O2 Saturation 79.6 L ABG Base Excess 17.7 H Eloy Test Yes ABG Potassium 4.0 A-a O2 Difference Sodium 139.0 139 Chloride 93.0 L 90 L Glucose 121 H Lactate 2.0 Vent Mode FiO2 21.0 Blood Gas Comments Vbg Crit Value Called To Shannon zayas r.n. Crit Value Called By Lilli Crit Value Read Back Y Blood Gas Notified Time 1210 Potassium 4.1 Carbon Dioxide 38 H Anion Gap 15 BUN 73 H Creatinine 3.3 H Est GFR ( Amer) 16 Est GFR (Non-Af Amer) 13 Random Glucose 119 H Hemoglobin A1c 5.4 Calcium 9.1 Total Bilirubin 0.9 AST 290 H D ALT 297 H D Alkaline Phosphatase 68 Ammonia Troponin I 0.0510 NT-Pro-B Natriuret Pep 726005 H Total Protein 7.1 Albumin 3.6 Globulin 3.5 Albumin/Globulin Ratio 1.0 Triglycerides 121 Cholesterol 140 LDL Cholesterol Direct 91 HDL Cholesterol 37 Arterial Blood Potassium 4.0 Blood Type Antibody Screen BBK History Checked 01/25/18 01/25/18 01/25/18 12:00 12:00 12:12 WBC RBC Hgb Hct MCV MCH MCHC RDW Plt Count MPV Neut % (Auto) Lymph % (Auto) Amelia % (Auto) Eos % (Auto) Baso % (Auto) Neut # (Auto) Lymph # (Auto) Amelia # (Auto) Eos # (Auto) Baso # (Auto) PT 13.7 H INR 1.2 APTT 26.8 pCO2 34 L pO2 107 H HCO3 23.5 ABG pH 7.42 ABG Total CO2 23.1 ABG O2 Saturation 100.5 H ABG Base Excess -1.7 Eloy Test Yes ABG Potassium 4.3 A-a O2 Difference 79.0 Sodium 138.0 Chloride 111.0 H Glucose 116 H Lactate 2.8 H Vent Mode Nc FiO2 32.0 Blood Gas Comments Crit Value Called To Crit Value Called By Crit Value Read Back Blood Gas Notified Time Potassium Carbon Dioxide Anion Gap BUN Creatinine Est GFR ( Amer) Est GFR (Non-Af Amer) Random Glucose Hemoglobin A1c Calcium Total Bilirubin AST ALT Alkaline Phosphatase Ammonia Troponin I NT-Pro-B Natriuret Pep Total Protein Albumin Globulin Albumin/Globulin Ratio Triglycerides Cholesterol LDL Cholesterol Direct HDL Cholesterol Arterial Blood Potassium 4.3 Blood Type O POSITIVE Antibody Screen Negative BBK History Checked No verified bt 01/25/18 01/25/18 12:40 13:20 WBC 12.1 H RBC 3.67 L Hgb 9.6 L Hct 31.8 L MCV 86.8 MCH 26.1 L MCHC 30.0 L RDW 16.8 H Plt Count 225 MPV 9.7 Neut % (Auto) 77.5 H Lymph % (Auto) 13.1 L Amelia % (Auto) 8.7 Eos % (Auto) 0.3 Baso % (Auto) 0.4 Neut # (Auto) 9.3 H Lymph # (Auto) 1.6 Amelia # (Auto) 1.0 H Eos # (Auto) 0.0 Baso # (Auto) 0.0 PT INR APTT pCO2 pO2 HCO3 ABG pH ABG Total CO2 ABG O2 Saturation ABG Base Excess Eloy Test ABG Potassium A-a O2 Difference Sodium Chloride Glucose Lactate Vent Mode FiO2 Blood Gas Comments Crit Value Called To Crit Value Called By Crit Value Read Back Blood Gas Notified Time Potassium Carbon Dioxide Anion Gap BUN Creatinine Est GFR ( Amer) Est GFR (Non-Af Amer) Random Glucose Hemoglobin A1c Calcium Total Bilirubin AST ALT Alkaline Phosphatase Ammonia 23 Troponin I NT-Pro-B Natriuret Pep Total Protein Albumin Globulin Albumin/Globulin Ratio Triglycerides Cholesterol LDL Cholesterol Direct HDL Cholesterol Arterial Blood Potassium Blood Type Antibody Screen BBK History Checked EKG/Cardiology Studies: Cardiology / EKG Studies 01/25/18 11:29 ELECTROCARDIOGRAM Stat Comment: Mode Of Transportation: Reason For Exam: cva eval Attending/Attestation - Attestation I have personally seen and examined this patient.: Yes I have fully participated in the care of the patient.: Yes I have reviewed all pertinent clinical information: Yes Notes (Text): 01/25/18 18:31 Today: Thursday, January 25, 2018 The patient was Seen/interviewed and examined by me at the bedside during ICU round, Medical records reviewed and Management issues were discussed and formulated with the house staff. Events reviewed I have reviewed all the relevant clinical, laboratory, hemodynamic, radiographic data and medications Pain issues, skin care, head of the bed elevation, glycemic control were addressed. I concur with resident's assessment and plan of care as transcribed in Dr. Reagan note.
--- NOTE | 2018-01-25 18:36 | CARD ---
APPROVED REPORT Date of service: 01/25/2018 EKG Measurement Heart [id number] <Conclusion> Sinus rhythm with occasional premature ventricular complexes Moderate voltage criteria for LVH, may be normal variant Left axis deviation Abnormal ECG
[2018-01-25 19:33] LABS: SQUAMOUS EPITHIAL 6 /hpf (0-5); URINE BACTERIA MANY (<OCC); URINE BILIRUBIN NEGATIVE (NEGATIVE); URINE BLOOD SMALL (NEGATIVE); URINE CLARITY TURBID (Clear); URINE COLOR AMBER (YELLOW); URINE GLUCOSE (UA) NEG (Normal); URINE HYALINE CAST 0-2 /hpf (0-2); URINE LEUKOCYTE ESTERASE LARGE Leu/uL (Negative); URINE PROTEIN 100 mg/dL (NEGATIVE)
[2018-01-25] MEDS: Docusate-Senna 50 mg-8.6 mg Tab PO SCH (22:05)
--- NOTE | 2018-01-25 22:33 | CP.PCM.CON ---
History of Present Illness - History of Present Illness History of Present Illness: CT surgery consult note for Dr. Romeo Consulted for Left Pleural effusion Patient is a 87 yr old female with PMH HTN, HLD, CAD, CHF and CABG July 2017 who presented to [facility] ED with SOB AMS and lethargy. Patients family provided history in ED as patient was unable. Patient had been becoming increasingly SOB over the past few days sleeping sitting up/ with pillows and being unable to walk short distances due to SOB. Patient was placed on BIPAP in ED with marked improvement of symptoms. She is currently in no respiratory distress and is saturating >95 % on BIPAP. Family notes that patient initally did well after the surgery but over the past few months has declined. Patient has required 3 thoracenteses over the last 2 months and 2 in the last 2 weeks with >1 L output each. PMH: HTN, HLD, CAD, CHF PSH: CABG (july 2017) allergies: NKDA Cardiology: Ángel Review of Systems - Review of Systems Systems not reviewed;Unavailable: Altered Mental Status All systems: reviewed and no additional remarkable complaints except Past Patient History - Tetanus Immunizations Tetanus Immunization: Unknown - Past Medical History & Family History Past Medical History?: Yes - Past Social History Smoking Status: Former Smoker - CARDIAC Hx Congestive Heart Failure: Yes Hx Hypercholesterolemia: Yes Hx Hypertension: Yes - PULMONARY Hx Asthma: Yes Hx Bronchitis: Yes Hx Pneumonia: Yes - NEUROLOGICAL Hx Neurological Disorder: No - HEENT Hx HEENT Problems: No - RENAL Hx Chronic Kidney Disease: No - ENDOCRINE/METABOLIC Hx Endocrine Disorders: No - HEMATOLOGICAL/ONCOLOGICAL Hx Blood Disorders: No - INTEGUMENTARY Hx Dermatological Problems: No - MUSCULOSKELETAL/RHEUMATOLOGICAL Hx Musculoskeletal Disorders: No Hx Falls: No - GASTROINTESTINAL Hx Gastrointestinal Disorders: No - GENITOURINARY/GYNECOLOGICAL Hx Genitourinary Disorders: No - PSYCHIATRIC Hx Anxiety: Yes - SURGICAL HISTORY Hx Coronary Artery Bypass Graft: Yes - ANESTHESIA Hx Anesthesia: Yes Hx Anesthesia Reactions: No Hx Malignant Hyperthermia: No Meds Allergies/Adverse Reactions: Allergies Allergy/AdvReac Type Severity Reaction Status Date / Time No Known Allergies Allergy Verified 01/25/18 11:05 - Medications Medications: Current Medications Alprazolam (Xanax) 0.5 mg PO Q12 PRN PRN Reason: Anxiety Aspirin (Ecotrin) 81 mg PO DAILY TOD Atorvastatin Calcium (Lipitor) 20 mg PO DAILY TOD Last Admin: 01/25/18 21:43 Dose: Not Given Clopidogrel Bisulfate (Plavix) 75 mg PO DAILY [facility] Furosemide (Lasix) 40 mg PO DAILY [facility] Home Med (Ubidecarenone [Coenzyme Q10]) 100 mg PO DAILY [facility] Metoprolol Succinate (Toprol Xl) 25 mg PO DAILY [facility] Senna/Docusate Sodium (Senokot S 50 Mg-8.6 Mg) 1 tab PO HS [facility] Sertraline HCl (Zoloft) 25 mg PO QPM [facility] Physical Exam - Constitutional Appears: No Acute Distress, Confused, Chronically Ill - Head Exam Head Exam: ATRAUMATIC, NORMOCEPHALIC - ENT Exam ENT Exam: Mucous Membranes Moist - Respiratory Exam Respiratory Exam: Decreased Breath Sounds (Left Lower Lobe). absent: Accessory Muscle Use, Wheezes, Respiratory Distress Additional comments: on BIPAP - Cardiovascular Exam Cardiovascular Exam: REGULAR RHYTHM. absent: Tachycardia Additional comments: distant heart sounds - GI/Abdominal Exam GI & Abdominal Exam: Soft. absent: Distended, Guarding, Rigid, Tenderness - Extremities Exam Extremities exam: Positive for: pedal edema (2+ bilaterally to the knees), pedal pulses present. Negative for: calf tenderness - Neurological Exam Neurological exam: Altered - Psychiatric Exam Additional comments: AMS unable to talk or answer questions - Skin Skin Exam: Dry, Intact, Normal Color, Warm Results - Vital Signs Recent Vital Signs: Last Vital Signs Temp 98.6 F 01/25/18 18:30 Pulse 92 H 01/25/18 19:24 Resp 33 H 01/25/18 18:25 BP 140/70 01/25/18 18:30 Pulse Ox 98 01/25/18 18:30 - Labs Result Diagrams: 01/25/18 13:20 01/25/18 12:00 Labs: Laboratory Results - last 24 hr 01/25/18 01/25/18 01/25/18 11:29 12:00 12:00 WBC RBC Hgb Hct MCV MCH MCHC RDW Plt Count MPV Neut % (Auto) Lymph % (Auto) [place] % (Auto) Eos % (Auto) Baso % (Auto) Neut # (Auto) Lymph # (Auto) [place] # (Auto) Eos # (Auto) Baso # (Auto) PT INR APTT pCO2 87 H* pO2 44 L* HCO3 38.3 H ABG pH 7.34 L ABG Total CO2 49.6 H ABG O2 Saturation 79.6 L ABG Base Excess 17.7 H [place]oy Test Yes ABG Potassium 4.0 A-a O2 Difference Sodium 139.0 139 Chloride 93.0 L 90 L Glucose 121 H Lactate 2.0 Vent Mode FiO2 21.0 Blood Gas Comments Vbg Crit Value Called To Shannon zayas r.n. Crit Value Called By Lilli Crit Value Read Back Y Blood Gas Notified Time 1210 Potassium 4.1 Carbon Dioxide 38 H Anion Gap 15 BUN 73 H Creatinine 3.3 H Est GFR ( Amer) 16 Est GFR (Non-Af Amer) 13 Random Glucose 119 H Hemoglobin A1c 5.4 Calcium 9.1 Total Bilirubin 0.9 AST 290 H D ALT 297 H D Alkaline Phosphatase 68 Ammonia Troponin I 0.0510 NT-Pro-B Natriuret Pep [id number] H Total Protein 7.1 Albumin 3.6 Globulin 3.5 Albumin/Globulin Ratio 1.0 Triglycerides 121 Cholesterol 140 LDL Cholesterol Direct 91 HDL Cholesterol 37 Arterial Blood Potassium 4.0 Urine Color Urine Clarity Urine pH Ur Specific Pound Urine Protein Urine Glucose (UA) Urine Ketones Urine Blood Urine Nitrate Urine Bilirubin Urine Urobilinogen Ur Leukocyte Esterase Urine RBC (Auto) Urine Microscopic WBC Ur Squamous Epith Cells Urine Bacteria Hyaline Casts Blood Type Antibody Screen BBK History Checked 01/25/18 01/25/18 01/25/18 12:00 12:00 12:12 WBC RBC Hgb Hct MCV MCH MCHC RDW Plt Count MPV Neut % (Auto) Lymph % (Auto) [place] % (Auto) Eos % (Auto) Baso % (Auto) Neut # (Auto) Lymph # (Auto) [place] # (Auto) Eos # (Auto) Baso # (Auto) PT 13.7 H INR 1.2 APTT 26.8 pCO2 34 L pO2 107 H HCO3 23.5 ABG pH 7.42 ABG Total CO2 23.1 ABG O2 Saturation 100.5 H ABG Base Excess -1.7 Eloy Test Yes ABG Potassium 4.3 A-a O2 Difference 79.0 Sodium 138.0 Chloride 111.0 H Glucose 116 H Lactate 2.8 H Vent Mode Nc FiO2 32.0 Blood Gas Comments Crit Value Called To Crit Value Called By Crit Value Read Back Blood Gas Notified Time Potassium Carbon Dioxide Anion Gap BUN Creatinine Est GFR ( Amer) Est GFR (Non-Af Amer) Random Glucose Hemoglobin A1c Calcium Total Bilirubin AST ALT Alkaline Phosphatase Ammonia Troponin I NT-Pro-B Natriuret Pep Total Protein Albumin Globulin Albumin/Globulin Ratio Triglycerides Cholesterol LDL Cholesterol Direct HDL Cholesterol Arterial Blood Potassium 4.3 Urine Color Urine Clarity Urine pH Ur Specific Pound Urine Protein Urine Glucose (UA) Urine Ketones Urine Blood Urine Nitrate Urine Bilirubin Urine Urobilinogen Ur Leukocyte Esterase Urine RBC (Auto) Urine Microscopic WBC Ur Squamous Epith Cells Urine Bacteria Hyaline Casts Blood Type O POSITIVE Antibody Screen Negative BBK History Checked No verified bt 01/25/18 01/25/18 01/25/18 12:40 13:20 19:16 WBC 12.1 H RBC 3.67 L Hgb 9.6 L Hct 31.8 L MCV 86.8 MCH 26.1 L MCHC 30.0 L RDW 16.8 H Plt Count 225 MPV 9.7 Neut % (Auto) 77.5 H Lymph % (Auto) 13.1 L [place] % (Auto) 8.7 Eos % (Auto) 0.3 Baso % (Auto) 0.4 Neut # (Auto) 9.3 H Lymph # (Auto) 1.6 [place] # (Auto) 1.0 H Eos # (Auto) 0.0 Baso # (Auto) 0.0 PT INR APTT pCO2 pO2 HCO3 ABG pH ABG Total CO2 ABG O2 Saturation ABG Base Excess [place] Test ABG Potassium A-a O2 Difference Sodium Chloride Glucose Lactate Vent Mode FiO2 Blood Gas Comments Crit Value Called To Crit Value Called By Crit Value Read Back Blood Gas Notified Time Potassium Carbon Dioxide Anion Gap BUN Creatinine Est GFR ( Amer) Est GFR (Non-Af Amer) Random Glucose Hemoglobin A1c Calcium Total Bilirubin AST ALT Alkaline Phosphatase Ammonia 23 Troponin I NT-Pro-B Natriuret Pep Total Protein Albumin Globulin Albumin/Globulin Ratio Triglycerides Cholesterol LDL Cholesterol Direct HDL Cholesterol Arterial Blood Potassium Urine Color Agatha Urine Clarity Turbid Urine pH 5.0 Ur Specific [place]ound 1.013 Urine Protein 100 Urine Glucose (UA) Neg Urine Ketones Negative Urine Blood Small Urine Nitrate Negative Urine Bilirubin Negative Urine Urobilinogen 2.0 H Ur Leukocyte Esterase Large Urine RBC (Auto) 6 H Urine Microscopic WBC 54 H Ur Squamous Epith Cells 6 H Urine Bacteria Many H Hyaline Casts 0-2 Blood Type Antibody Screen BBK History Checked Assessment & Plan - Assessment and Plan (Free Text) Assessment: 87 yr old female with recent CABG July 2017 with recurrent pleural effusions 2/2 CHF exacerbation Plan: c/w Lasix c/w BIPAP will plan for Chest tube placement and pleurodesis on Chest CT for further operative planning d/w Dr. Agueda Child, PGY 1 - Date & Time Date: 01/25/18 Time: 18:45
--- NOTE | 2018-01-26 07:57 | CP.CCUPN ---
<Emmett Reagan - Last Filed: 01/26/18 11:18> CCU Subjective - Physician Review Subjective (Free Text): 01/26/18 09:59 Pt seen and examined this am at bedside. No acute events overnight. Pt remains afebrile. pt on 4L NC, requesting to go home. Pt was in acute distress and desaturated to 84%. Grand daughter at bedside. Explained to patient and grand daughter plan for CT chest before planned chest tube and pleurodesis tomorrow. Pt saturation improved to 100 %. 01/26/18 10:01 CCU Objective - Vital Signs / Intake & Output Vital Signs (Last 4 hours): Vital Signs Temp Pulse Resp BP Pulse Ox 01/26/18 06:00 92 H 31 H 113/77 95 01/26/18 05:16 72 01/26/18 05:00 91 H 29 H 126/87 98 01/26/18 04:00 97.6 F 89 25 H 125/92 H 96 Intake and Output (Last 8hrs): Intake & Output 01/25/18 01/26/18 01/26/18 22:59 06:59 14:59 Output Total 200 Balance -200 Weight 186 lb 4.8 oz Output: Urine 200 Urethral ([place]) 200 - Physical Exam Head: Positive for: Atraumatic Extroacular Muscles: Positive for: EOMI Respiratory/Chest: Positive for: Decreased Breath Sounds, Tachypneic Cardiovascular: Positive for: Regular Rate and Rhythm, Normal S1, S2 Abdomen: Positive for: Normal Bowel Sounds. Negative for: Tenderness Psychiatric: Positive for: Alert - Medications Active Medications: Active Medications Generic Name Dose Route Start Last Admin Trade Name Freq PRN Reason Stop Dose Admin Alprazolam 0.5 mg 01/25/18 15:34 Xanax PO Q12 PRN Anxiety Aspirin 81 mg 01/26/18 09:00 Ecotrin PO DAILY [facility] Atorvastatin Calcium 20 mg 01/25/18 21:00 01/25/18 21:43 Lipitor PO Not Given DAILY [facility] Clopidogrel Bisulfate 75 mg 01/26/18 09:00 Plavix PO DAILY [facility] Furosemide 40 mg 01/26/18 09:00 Lasix PO DAILY [facility] Home Med 100 mg 01/26/18 09:00 Ubidecarenone [Coenzyme Q10] PO DAILY [facility] Metoprolol Succinate 25 mg 01/26/18 09:00 Toprol Xl PO DAILY [facility] Senna/Docusate Sodium 1 tab 01/25/18 22:00 01/25/18 22:05 Senokot S 50 Mg-8.6 Mg PO Not Given HS TOD Sertraline HCl 25 mg 01/25/18 18:00 Zoloft PO QPM TOD - Patient Studies Lab Studies: Lab Studies 01/25/18 01/25/18 01/25/18 Range/Units 19:16 13:20 12:40 WBC 12.1 H (4.8-10.8) K/uL RBC 3.67 L (3.80-5.20) Mil/uL Hgb 9.6 L (12.0-16.0) g/dL Hct 31.8 L (34.0-47.0) % MCV 86.8 (81.0-99.0) fl MCH 26.1 L (27.0-31.0) pg MCHC 30.0 L (33.0-37.0) g/dL RDW 16.8 H (11.5-14.5) % Plt Count 225 (130-400) K/uL MPV 9.7 (7.2-11.7) fl Neut % (Auto) 77.5 H (50.0-75.0) % Lymph % (Auto) 13.1 L (20.0-40.0) % White % (Auto) 8.7 (0.0-10.0) % Eos % (Auto) 0.3 (0.0-4.0) % Baso % (Auto) 0.4 (0.0-2.0) % Neut # (Auto) 9.3 H (1.8-7.0) K/uL Lymph # (Auto) 1.6 (1.0-4.3) K/uL White # (Auto) 1.0 H (0.0-0.8) K/uL Eos # (Auto) 0.0 (0.0-0.7) K/uL Baso # (Auto) 0.0 (0.0-0.2) K/uL PT (9.8-13.1) Seconds INR APTT (25.6-37.1) Seconds pCO2 (35-45) mm/Hg pO2 (80-100) mm/Hg HCO3 (21-28) mmol/L ABG pH (7.35-7.45) ABG Total CO2 (22-28) mmol/L ABG O2 Saturation (95-98) % ABG Base Excess (-2.0-3.0) mmol/L Eoly Test ABG Potassium (3.6-5.2) mmol/L A-a O2 Difference mm/Hg Sodium (132-148) mmol/L Chloride (98-107) mmol/L Glucose (65-105) mg/dL Lactate (0.7-2.1) mmol/L Vent Mode FiO2 % Blood Gas Comments Crit Value Called To Crit Value Called By Crit Value Read Back Blood Gas Notified Time Potassium (3.6-5.0) MMOL/L Carbon Dioxide (22-30) mmol/L Anion Gap (10-20) BUN (7-17) mg/dl Creatinine (0.7-1.2) mg/dl Est GFR ( Amer) Est GFR (Non-Af Amer) Random Glucose (65-105) mg/dL Hemoglobin A1c (4.2-6.5) % Calcium (8.4-10.2) mg/dL Total Bilirubin (0.2-1.3) mg/dl AST (14-36) U/L ALT (9-52) U/L Alkaline Phosphatase (38-126) U/L Ammonia 23 (11-51) umo/L Troponin I (0.00-0.120) ng/mL NT-Pro-B Natriuret Pep (0-900) pg/ml Total Protein (6.3-8.2) G/DL Albumin (3.5-5.0) g/dL Globulin (2.2-3.9) gm/dL Albumin/Globulin Ratio (1.0-2.1) Triglycerides (0-149) mg/DL Cholesterol (0-199) mg/dL LDL Cholesterol Direct (0-129) mg/dL HDL Cholesterol (30-70) MG/DL Arterial Blood Potassium (3.6-5.2) mmol/L Urine Color Agatha (YELLOW) Urine Clarity Turbid (Clear) Urine pH 5.0 (5.0-8.0) Ur Specific Wilson 1.013 (1.003-1.030) Urine Protein 100 (NEGATIVE) mg/dL Urine Glucose (UA) Neg (Normal) mg/dL Urine Ketones Negative (NEGATIVE) mg/dL Urine Blood Small (NEGATIVE) Urine Nitrate Negative (NEGATIVE) Urine Bilirubin Negative (NEGATIVE) Urine Urobilinogen 2.0 H (0.2-1.0) mg/dL Ur Leukocyte Esterase Large (Negative) Reva/uL Urine RBC (Auto) 6 H (0-3) /hpf Urine Microscopic WBC 54 H (0-5) /hpf Ur Squamous Epith Cells 6 H (0-5) /hpf Urine Bacteria Many H (<OCC) Hyaline Casts 0-2 (0-2) /hpf Blood Type Antibody Screen BBK History Checked 01/25/18 01/25/18 01/25/18 Range/Units 12:12 12:00 12:00 WBC (4.8-10.8) K/uL RBC (3.80-5.20) Mil/uL Hgb (12.0-16.0) g/dL Hct (34.0-47.0) % MCV (81.0-99.0) fl MCH (27.0-31.0) pg MCHC (33.0-37.0) g/dL RDW (11.5-14.5) % Plt Count (130-400) K/uL MPV (7.2-11.7) fl Neut % (Auto) (50.0-75.0) % Lymph % (Auto) (20.0-40.0) % White % (Auto) (0.0-10.0) % Eos % (Auto) (0.0-4.0) % Baso % (Auto) (0.0-2.0) % Neut # (Auto) (1.8-7.0) K/uL Lymph # (Auto) (1.0-4.3) K/uL White # (Auto) (0.0-0.8) K/uL Eos # (Auto) (0.0-0.7) K/uL Baso # (Auto) (0.0-0.2) K/uL PT 13.7 H (9.8-13.1) Seconds INR 1.2 APTT 26.8 (25.6-37.1) Seconds pCO2 34 L (35-45) mm/Hg pO2 107 H (80-100) mm/Hg HCO3 23.5 (21-28) mmol/L ABG pH 7.42 (7.35-7.45) ABG Total CO2 23.1 (22-28) mmol/L ABG O2 Saturation 100.5 H (95-98) % ABG Base Excess -1.7 (-2.0-3.0) mmol/L Eloy Test Yes ABG Potassium 4.3 (3.6-5.2) mmol/L A-a O2 Difference 79.0 mm/Hg Sodium 138.0 (132-148) mmol/L Chloride 111.0 H (98-107) mmol/L Glucose 116 H (65-105) mg/dL Lactate 2.8 H (0.7-2.1) mmol/L Vent Mode Nc FiO2 32.0 % Blood Gas Comments Crit Value Called To Crit Value Called By Crit Value Read Back Blood Gas Notified Time Potassium (3.6-5.0) MMOL/L Carbon Dioxide (22-30) mmol/L Anion Gap (10-20) BUN (7-17) mg/dl Creatinine (0.7-1.2) mg/dl Est GFR ( Amer) Est GFR (Non-Af Amer) Random Glucose (65-105) mg/dL Hemoglobin A1c (4.2-6.5) % Calcium (8.4-10.2) mg/dL Total Bilirubin (0.2-1.3) mg/dl AST (14-36) U/L ALT (9-52) U/L Alkaline Phosphatase (38-126) U/L Ammonia (11-51) umo/L Troponin I (0.00-0.120) ng/mL NT-Pro-B Natriuret Pep (0-900) pg/ml Total Protein (6.3-8.2) G/DL Albumin (3.5-5.0) g/dL Globulin (2.2-3.9) gm/dL Albumin/Globulin Ratio (1.0-2.1) Triglycerides (0-149) mg/DL Cholesterol (0-199) mg/dL LDL Cholesterol Direct (0-129) mg/dL HDL Cholesterol (30-70) MG/DL Arterial Blood Potassium 4.3 (3.6-5.2) mmol/L Urine Color (YELLOW) Urine Clarity (Clear) Urine pH (5.0-8.0) Ur Specific Wilson (1.003-1.030) Urine Protein (NEGATIVE) mg/dL Urine Glucose (UA) (Normal) mg/dL Urine Ketones (NEGATIVE) mg/dL Urine Blood (NEGATIVE) Urine Nitrate (NEGATIVE) Urine Bilirubin (NEGATIVE) Urine Urobilinogen (0.2-1.0) mg/dL Ur Leukocyte Esterase (Negative) Reva/uL Urine RBC (Auto) (0-3) /hpf Urine Microscopic WBC (0-5) /hpf Ur Squamous Epith Cells (0-5) /hpf Urine Bacteria (<OCC) Hyaline Casts (0-2) /hpf Blood Type O POSITIVE Antibody Screen Negative BBK History Checked No verified bt 01/25/18 01/25/18 01/25/18 Range/Units 12:00 12:00 11:29 WBC (4.8-10.8) K/uL RBC (3.80-5.20) Mil/uL Hgb (12.0-16.0) g/dL Hct (34.0-47.0) % MCV (81.0-99.0) fl MCH (27.0-31.0) pg MCHC (33.0-37.0) g/dL RDW (11.5-14.5) % Plt Count (130-400) K/uL MPV (7.2-11.7) fl Neut % (Auto) (50.0-75.0) % Lymph % (Auto) (20.0-40.0) % White % (Auto) (0.0-10.0) % Eos % (Auto) (0.0-4.0) % Baso % (Auto) (0.0-2.0) % Neut # (Auto) (1.8-7.0) K/uL Lymph # (Auto) (1.0-4.3) K/uL White # (Auto) (0.0-0.8) K/uL Eos # (Auto) (0.0-0.7) K/uL Baso # (Auto) (0.0-0.2) K/uL PT (9.8-13.1) Seconds INR APTT (25.6-37.1) Seconds pCO2 87 H* (35-45) mm/Hg pO2 44 L* (80-100) mm/Hg HCO3 38.3 H (21-28) mmol/L ABG pH 7.34 L (7.35-7.45) ABG Total CO2 49.6 H (22-28) mmol/L ABG O2 Saturation 79.6 L (95-98) % ABG Base Excess 17.7 H (-2.0-3.0) mmol/L Eloy Test Yes ABG Potassium 4.0 (3.6-5.2) mmol/L A-a O2 Difference mm/Hg Sodium 139 139.0 (132-148) mmol/L Chloride 90 L 93.0 L (98-107) mmol/L Glucose 121 H (65-105) mg/dL Lactate 2.0 (0.7-2.1) mmol/L Vent Mode FiO2 21.0 % Blood Gas Comments Vbg Crit Value Called To Shannon zayas r.n. Crit Value Called By Lilli Crit Value Read Back Y Blood Gas Notified Time 1210 Potassium 4.1 (3.6-5.0) MMOL/L Carbon Dioxide 38 H (22-30) mmol/L Anion Gap 15 (10-20) BUN 73 H (7-17) mg/dl Creatinine 3.3 H (0.7-1.2) mg/dl Est GFR ( Amer) 16 Est GFR (Non-Af Amer) 13 Random Glucose 119 H (65-105) mg/dL Hemoglobin A1c 5.4 (4.2-6.5) % Calcium 9.1 (8.4-10.2) mg/dL Total Bilirubin 0.9 (0.2-1.3) mg/dl AST 290 H D (14-36) U/L ALT 297 H D (9-52) U/L Alkaline Phosphatase 68 (38-126) U/L Ammonia (11-51) umo/L Troponin I 0.0510 (0.00-0.120) ng/mL NT-Pro-B Natriuret Pep 165385 H (0-900) pg/ml Total Protein 7.1 (6.3-8.2) G/DL Albumin 3.6 (3.5-5.0) g/dL Globulin 3.5 (2.2-3.9) gm/dL Albumin/Globulin Ratio 1.0 (1.0-2.1) Triglycerides 121 (0-149) mg/DL Cholesterol 140 (0-199) mg/dL LDL Cholesterol Direct 91 (0-129) mg/dL HDL Cholesterol 37 (30-70) MG/DL Arterial Blood Potassium 4.0 (3.6-5.2) mmol/L Urine Color (YELLOW) Urine Clarity (Clear) Urine pH (5.0-8.0) Ur Specific Wilson (1.003-1.030) Urine Protein (NEGATIVE) mg/dL Urine Glucose (UA) (Normal) mg/dL Urine Ketones (NEGATIVE) mg/dL Urine Blood (NEGATIVE) Urine Nitrate (NEGATIVE) Urine Bilirubin (NEGATIVE) Urine Urobilinogen (0.2-1.0) mg/dL Ur Leukocyte Esterase (Negative) Reva/uL Urine RBC (Auto) (0-3) /hpf Urine Microscopic WBC (0-5) /hpf Ur Squamous Epith Cells (0-5) /hpf Urine Bacteria (<OCC) Hyaline Casts (0-2) /hpf Blood Type Antibody Screen BBK History Checked Laboratory Results - last 24 hr 01/25/18 01/25/18 01/25/18 11:29 12:00 12:00 WBC RBC Hgb Hct MCV MCH MCHC RDW Plt Count MPV Neut % (Auto) Lymph % (Auto) White % (Auto) Eos % (Auto) Baso % (Auto) Neut # (Auto) Lymph # (Auto) White # (Auto) Eos # (Auto) Baso # (Auto) PT INR APTT pCO2 87 H* pO2 44 L* HCO3 38.3 H ABG pH 7.34 L ABG Total CO2 49.6 H ABG O2 Saturation 79.6 L ABG Base Excess 17.7 H Eloy Test Yes ABG Potassium 4.0 A-a O2 Difference Sodium 139.0 139 Chloride 93.0 L 90 L Glucose 121 H Lactate 2.0 Vent Mode FiO2 21.0 Blood Gas Comments Vbg Crit Value Called To Shannon zayas r.n. Crit Value Called By Lilli Crit Value Read Back Y Blood Gas Notified Time 1210 Potassium 4.1 Carbon Dioxide 38 H Anion Gap 15 BUN 73 H Creatinine 3.3 H Est GFR ( Amer) 16 Est GFR (Non-Af Amer) 13 Random Glucose 119 H Hemoglobin A1c 5.4 Calcium 9.1 Total Bilirubin 0.9 AST 290 H D ALT 297 H D Alkaline Phosphatase 68 Ammonia Troponin I 0.0510 NT-Pro-B Natriuret Pep 912145 H Total Protein 7.1 Albumin 3.6 Globulin 3.5 Albumin/Globulin Ratio 1.0 Triglycerides 121 Cholesterol 140 LDL Cholesterol Direct 91 HDL Cholesterol 37 Arterial Blood Potassium 4.0 Urine Color Urine Clarity Urine pH Ur Specific Wilson Urine Protein Urine Glucose (UA) Urine Ketones Urine Blood Urine Nitrate Urine Bilirubin Urine Urobilinogen Ur Leukocyte Esterase Urine RBC (Auto) Urine Microscopic WBC Ur Squamous Epith Cells Urine Bacteria Hyaline Casts Blood Type Antibody Screen BBK History Checked 01/25/18 01/25/18 01/25/18 12:00 12:00 12:12 WBC RBC Hgb Hct MCV MCH MCHC RDW Plt Count MPV Neut % (Auto) Lymph % (Auto) White % (Auto) Eos % (Auto) Baso % (Auto) Neut # (Auto) Lymph # (Auto) White # (Auto) Eos # (Auto) Baso # (Auto) PT 13.7 H INR 1.2 APTT 26.8 pCO2 34 L pO2 107 H HCO3 23.5 ABG pH 7.42 ABG Total CO2 23.1 ABG O2 Saturation 100.5 H ABG Base Excess -1.7 Eloy Test Yes ABG Potassium 4.3 A-a O2 Difference 79.0 Sodium 138.0 Chloride 111.0 H Glucose 116 H Lactate 2.8 H Vent Mode Nc FiO2 32.0 Blood Gas Comments Crit Value Called To Crit Value Called By Crit Value Read Back Blood Gas Notified Time Potassium Carbon Dioxide Anion Gap BUN Creatinine Est GFR ( Amer) Est GFR (Non-Af Amer) Random Glucose Hemoglobin A1c Calcium Total Bilirubin AST ALT Alkaline Phosphatase Ammonia Troponin I NT-Pro-B Natriuret Pep Total Protein Albumin Globulin Albumin/Globulin Ratio Triglycerides Cholesterol LDL Cholesterol Direct HDL Cholesterol Arterial Blood Potassium 4.3 Urine Color Urine Clarity Urine pH Ur Specific Wilson Urine Protein Urine Glucose (UA) Urine Ketones Urine Blood Urine Nitrate Urine Bilirubin Urine Urobilinogen Ur Leukocyte Esterase Urine RBC (Auto) Urine Microscopic WBC Ur Squamous Epith Cells Urine Bacteria Hyaline Casts Blood Type O POSITIVE Antibody Screen Negative BBK History Checked No verified bt 01/25/18 01/25/18 01/25/18 12:40 13:20 19:16 WBC 12.1 H RBC 3.67 L Hgb 9.6 L Hct 31.8 L MCV 86.8 MCH 26.1 L MCHC 30.0 L RDW 16.8 H Plt Count 225 MPV 9.7 Neut % (Auto) 77.5 H Lymph % (Auto) 13.1 L White % (Auto) 8.7 Eos % (Auto) 0.3 Baso % (Auto) 0.4 Neut # (Auto) 9.3 H Lymph # (Auto) 1.6 White # (Auto) 1.0 H Eos # (Auto) 0.0 Baso # (Auto) 0.0 PT INR APTT pCO2 pO2 HCO3 ABG pH ABG Total CO2 ABG O2 Saturation ABG Base Excess Eloy Test ABG Potassium A-a O2 Difference Sodium Chloride Glucose Lactate Vent Mode FiO2 Blood Gas Comments Crit Value Called To Crit Value Called By Crit Value Read Back Blood Gas Notified Time Potassium Carbon Dioxide Anion Gap BUN Creatinine Est GFR ( Amer) Est GFR (Non-Af Amer) Random Glucose Hemoglobin A1c Calcium Total Bilirubin AST ALT Alkaline Phosphatase Ammonia 23 Troponin I NT-Pro-B Natriuret Pep Total Protein Albumin Globulin Albumin/Globulin Ratio Triglycerides Cholesterol LDL Cholesterol Direct HDL Cholesterol Arterial Blood Potassium Urine Color Agatha Urine Clarity Turbid Urine pH 5.0 Ur Specific Wilson 1.013 Urine Protein 100 Urine Glucose (UA) Neg Urine Ketones Negative Urine Blood Small Urine Nitrate Negative Urine Bilirubin Negative Urine Urobilinogen 2.0 H Ur Leukocyte Esterase Large Urine RBC (Auto) 6 H Urine Microscopic WBC 54 H Ur Squamous Epith Cells 6 H Urine Bacteria Many H Hyaline Casts 0-2 Blood Type Antibody Screen BBK History Checked EKG/Cardiology Studies: Cardiology / EKG Studies 01/25/18 11:29 ELECTROCARDIOGRAM Stat Comment: Mode Of Transportation: Reason For Exam: cva eval Fingerstick Blood Sugar Results: 137 Review of Systems - Cardiovascular Cardiovascular: absent: Chest Pain - Respiratory Respiratory: Dyspnea - Gastrointestinal Gastrointestinal: absent: Abdominal Pain Assessment/Plan - Assessment and Plan (Free Text) Assessment: 87 yo F with pmhx of CAD with recent CABG (2 vessel), HTN, dyslipidemia, CHF admitted for CHF exacerbation. Plan: CHF exacerbation -BNP: 190415 -IV lasix 80 mg once and 40 mg po once -Will consider IV lasix drip -Cardiology: Dr. Perez -No empiric antibiotics: afebrile, mild leukocytosis, BIPAP: -Ventilation support -Pt was noted to have desaturation to 87-88% in ED -ABG reviewed -Pulmonology: Dr. Marie -Pt only tolerating BIPAP for 2-3 hours. Currently on NC 4 L saturating well History of CABG -Cardiology: Dr. Perez -Troponin negative x1 Loculated Pleural Effusion -CXR -Hx of multiple pleural tap -Surgery consulted: Dr. Romeo; chest tube and pleurodesis planned for 01/27/2018 -Culture of pleural effusion -Pt refusing CT head and chest 2/2 discomfort while supine Elevated BUN/Cr: -BUN/Cr: 73/3.3; increased to 77/3.9 -Lasix: IV 80 mg once and 40 mg po once -Nephrology: Dr. Tellez HTN -Continue home meds DM2 -Continue home meds -ISS -Accucheck DVT prophylaxis -SCDs Code Status: Full code Next of Kin: Son Case dw Dr.Chu Emmett Reagan MD PGY2 <Guillermo Salinas - Last Filed: 01/26/18 17:05> CCU Subjective - Physician Review Subjective (Free Text): Attestation: Patient seen and examined at the bedside with Resident Dr. Ryanne Reagan; and I agree with his outline of plans and management documented above and below, reflecting my review of all applicable clinical data, and participation in the care of the patient throughout the day in ICU; today, January 26, 2018. Significant Left sided effusion with compressed lung, noted on preliminary review of Chest CT, no official results available yet. So far she has averted need for MV support. However, she remains full Code resuscitation. BOOTH CASHIER called earlier as she did not tolerate supine position for PICC. Discussed present mgmt. of effusion with Cardio and ThorSurg. Plans for chest tube placement anticipated for 01/27 or 01/28. Cardio has mentioned might it not be better to transfer to [place] for CT surgeons to address and manage post-CABG effusion. Additional Lasix IV given today with only minimal 200 ml resultant urine output. Progressive acute on CKD noted. Nephro eval reviewed.
[2018-01-26 08:39] LABS: HEMOGLOBIN 9.4 g/dL (12.0-16.0); MEAN CELL VOLUME 88.3 fl (81.0-99.0); MEAN CORPUSCULAR HEMOGLOBIN 26.7 pg (27.0-31.0); MEAN CORPUSCULAR HGB CONC 30.2 g/dL (33.0-37.0); RBC 3.53 Mil/uL (3.80-5.20); RED CELL DISTRIBUTION WIDTH 16.8 % (11.5-14.5); WHITE BLOOD COUNT 13.3 K/uL (4.8-10.8)
[2018-01-26 08:52] LABS: ALBUMIN 3.6 g/dL (3.5-5.0); CALCIUM 9.3 mg/dL (8.4-10.2)
[2018-01-26] MEDS: Metoprolol Succinate 25 mg XL Tab PO SCH (08:56)
--- NOTE | 2018-01-26 12:58 | CP.PCM.PN ---
Subjective - Date & Time of Evaluation Date of Evaluation: 01/26/18 Time of Evaluation: 12:56 - Subjective Subjective: Surgery: Dr. Romeo Pt seen and examined. No acute events overnight. On NC, no SOB. Objective - Vital Signs/Intake and Output Vital Signs (last 24 hours): Temp Pulse Resp BP Pulse Ox 98.7 F 103 H 13 121/91 H 97 01/26/18 08:00 01/26/18 10:00 01/26/18 10:00 01/26/18 10:06 01/26/18 10:00 Intake and Output: 01/26/18 01/26/18 06:59 18:59 Intake Total 20 Output Total 200 Balance -200 20 - Medications Medications: Current Medications Alprazolam (Xanax) 0.5 mg PO Q12 PRN PRN Reason: Anxiety Aspirin (Ecotrin) 81 mg PO DAILY [facility] Atorvastatin Calcium (Lipitor) 20 mg PO DAILY [facility] Last Admin: 01/26/18 08:55 Dose: 20 mg Clopidogrel Bisulfate (Plavix) 75 mg PO DAILY [facility] Furosemide (Lasix) 40 mg PO DAILY [facility] Last Admin: 01/26/18 08:55 Dose: 40 mg Metoprolol Succinate (Toprol Xl) 25 mg PO DAILY [facility] Last Admin: 01/26/18 08:56 Dose: 25 mg Senna/Docusate Sodium (Senokot S 50 Mg-8.6 Mg) 1 tab PO HS [facility] Last Admin: 01/25/18 22:05 Dose: Not Given Sertraline HCl (Zoloft) 25 mg PO QPM [facility] - Labs Labs: 01/26/18 08:32 01/26/18 08:32 PT 13.7 Seconds (9.8-13.1) H 01/25/18 12:00 INR 1.2 01/25/18 12:00 APTT 26.8 Seconds (25.6-37.1) 01/25/18 12:00 - Constitutional Appears: Non-toxic, No Acute Distress - Head Exam Head Exam: ATRAUMATIC, NORMOCEPHALIC - Eye Exam Eye Exam: EOMI - ENT Exam ENT Exam: Mucous Membranes Moist - Neck Exam Neck Exam: Full ROM - Respiratory Exam Respiratory Exam: NORMAL BREATHING PATTERN. absent: Accessory Muscle Use, Respiratory Distress - GI/Abdominal Exam GI & Abdominal Exam: Soft. absent: Distended, Firm, Guarding, Rigid, Tenderness, Rebound - Neurological Exam Neurological Exam: Alert, Awake Assessment and Plan - Assessment and Plan (Free Text) Assessment: 87F w. recurrent pleural effusion -Awaiting CT chest results -Plan for OR for chest tube placement tomorrow -NPO at OK -d/w attending Zemaitis PGY4
--- NOTE | 2018-01-26 13:36 | CP.PCM.CON ---
History of Present Illness - History of Present Illness History of Present Illness: this patient whole is 87 years of age female I was called to see for abnormal kidney function. History was taken from the medical record. Patient is not giving much history complaining of some shortness of breath. The history indicated that the patient admitted with worsening of congestive heart failure and bilateral pleural effusion was previous pleural tap. on the left side no history reported about chronic kidney disease however review previous record and indicated that serum creatinine has been rising steadily since July of this year. Patient complaining of shortness of breath which has been improving. And apparently she is scheduled for pleural procedures. PMH: HTN, HLD, CAD, CHF,Pulmonary hypertension PSH: CABG (july 2017) allergies: NKDA social history not contributory Review of Systems - Constitutional Constitutional: Anorexia, Weakness. absent: Chills - EENT Eyes: absent: Exophthalmos Nose/Mouth/Throat: absent: Epistaxis - Breasts Breasts: absent: Pain - Cardiovascular Cardiovascular: Dyspnea, Leg Edema, Pedal Edema. absent: Acrocyanosis, Chest Pain - Respiratory Respiratory: Cough, Dyspnea. absent: Hemoptysis - Gastrointestinal Gastrointestinal: Bloating. absent: Coffee Ground Emesis, Cramping - Genitourinary Genitourinary: absent: Dysuria, Nocturia - Musculoskeletal Musculoskeletal: absent: Abnormal Gait, Back Pain, Muscle Cramps - Integumentary Integumentary: As Per HPI - Neurological Neurological: Abnormal Gait. absent: Confusion, Focal Weakness, Headaches - Psychiatric Psychiatric: absent: Confusion - Hematologic/Lymphatic Hematologic: absent: Easy Bleeding Past Patient History - Tetanus Immunizations Tetanus Immunization: Unknown - Past Medical History & Family History Past Medical History?: Yes - Past Social History Smoking Status: Former Smoker - CARDIAC Hx Congestive Heart Failure: Yes Hx Hypercholesterolemia: Yes Hx Hypertension: Yes - PULMONARY Hx Asthma: Yes Hx Bronchitis: Yes Hx Pneumonia: Yes - NEUROLOGICAL Hx Neurological Disorder: No - HEENT Hx HEENT Problems: No - RENAL Hx Chronic Kidney Disease: No - ENDOCRINE/METABOLIC Hx Endocrine Disorders: No - HEMATOLOGICAL/ONCOLOGICAL Hx Blood Disorders: No - INTEGUMENTARY Hx Dermatological Problems: No - MUSCULOSKELETAL/RHEUMATOLOGICAL Hx Musculoskeletal Disorders: No Hx Falls: No - GASTROINTESTINAL Hx Gastrointestinal Disorders: No - GENITOURINARY/GYNECOLOGICAL Hx Genitourinary Disorders: No - PSYCHIATRIC Hx Anxiety: Yes - SURGICAL HISTORY Hx Coronary Artery Bypass Graft: Yes - ANESTHESIA Hx Anesthesia: Yes Hx Anesthesia Reactions: No Hx Malignant Hyperthermia: No Meds Allergies/Adverse Reactions: Allergies Allergy/AdvReac Type Severity Reaction Status Date / Time No Known Allergies Allergy Verified 01/25/18 11:05 - Medications Medications: Current Medications Alprazolam (Xanax) 0.5 mg PO Q12 PRN PRN Reason: Anxiety Aspirin (Ecotrin) 81 mg PO DAILY [facility] Atorvastatin Calcium (Lipitor) 20 mg PO DAILY [facility] Last Admin: 01/26/18 08:55 Dose: 20 mg Clopidogrel Bisulfate (Plavix) 75 mg PO DAILY [facility] Furosemide (Lasix) 40 mg PO DAILY [facility] Last Admin: 01/26/18 08:55 Dose: 40 mg Metoprolol Succinate (Toprol Xl) 25 mg PO DAILY [facility] Last Admin: 01/26/18 08:56 Dose: 25 mg Senna/Docusate Sodium (Senokot S 50 Mg-8.6 Mg) 1 tab PO [facility] Last Admin: 01/25/18 22:05 Dose: Not Given Sertraline HCl (Zoloft) 25 mg PO QPM [facility] Physical Exam - Constitutional Appears: No Acute Distress - Eye Exam Eye Exam: Conjunctival injection - ENT Exam ENT Exam: Mucous Membranes Moist - Neck Exam Neck exam: Negative for: Lymphadenopathy - Respiratory Exam Respiratory Exam: Rales. absent: Chest Wall Tenderness, Rhonchi - Cardiovascular Exam Cardiovascular Exam: absent: Gallop, JVD, Rubs - GI/Abdominal Exam GI & Abdominal Exam: Normal Bowel Sounds. absent: Guarding - Extremities Exam Extremities exam: Negative for: calf tenderness - Back Exam Back exam: absent: CVA tenderness (L), CVA tenderness (R) - Neurological Exam Neurological exam: Alert - Psychiatric Exam Psychiatric exam: Normal Affect Results - Vital Signs Recent Vital Signs: Last Vital Signs Temp 98.7 F 01/26/18 08:00 Pulse 103 H 01/26/18 10:00 Resp 13 01/26/18 10:00 BP 121/91 H 01/26/18 10:06 Pulse Ox 97 01/26/18 10:00 - Labs Result Diagrams: 01/26/18 08:32 01/26/18 08:32 Labs: Laboratory Results - last 24 hr 01/25/18 01/25/18 01/25/18 12:00 13:20 19:16 WBC 12.1 H RBC 3.67 L Hgb 9.6 L Hct 31.8 L MCV 86.8 MCH 26.1 L MCHC 30.0 L RDW 16.8 H Plt Count 225 MPV 9.7 Neut % (Auto) 77.5 H Lymph % (Auto) 13.1 L Evans % (Auto) 8.7 Eos % (Auto) 0.3 Baso % (Auto) 0.4 Neut # (Auto) 9.3 H Lymph # (Auto) 1.6 Evans # (Auto) 1.0 H Eos # (Auto) 0.0 Baso # (Auto) 0.0 Sodium Potassium Chloride Carbon Dioxide Anion Gap BUN Creatinine Est GFR ( Amer) Est GFR (Non-Af Amer) Random Glucose Hemoglobin A1c 5.4 Calcium Total Bilirubin AST ALT Alkaline Phosphatase Ammonia Total Protein Albumin Globulin Albumin/Globulin Ratio Urine Color Agatha Urine Clarity Turbid Urine pH 5.0 Ur Specific [place] 1.013 Urine Protein 100 Urine Glucose (UA) Neg Urine Ketones Negative Urine Blood Small Urine Nitrate Negative Urine Bilirubin Negative Urine Urobilinogen 2.0 H Ur Leukocyte Esterase Large Urine RBC (Auto) 6 H Urine Microscopic WBC 54 H Ur Squamous Epith Cells 6 H Urine Bacteria Many H Hyaline Casts 0-2 01/26/18 01/26/18 01/26/18 08:32 08:32 08:32 WBC 13.3 H RBC 3.53 L Hgb 9.4 L Hct 31.2 L MCV 88.3 MCH 26.7 L MCHC 30.2 L RDW 16.8 H Plt Count 236 MPV Neut % (Auto) Lymph % (Auto) Evans % (Auto) Eos % (Auto) Baso % (Auto) Neut # (Auto) Lymph # (Auto) Evans # (Auto) Eos # (Auto) Baso # (Auto) Sodium 141 Potassium 4.8 Chloride 90 L Carbon Dioxide 37 H Anion Gap 19 BUN 77 H Creatinine 3.9 H Est GFR ( Amer) 13 Est GFR (Non-Af Amer) 11 Random Glucose 148 H Hemoglobin A1c Calcium 9.3 Total Bilirubin 1.6 H AST 324 H ALT 314 H Alkaline Phosphatase 77 Ammonia 41 D Total Protein 7.1 Albumin 3.6 Globulin 3.5 Albumin/Globulin Ratio 1.0 Urine Color Urine Clarity Urine pH Ur Specific [place] Urine Protein Urine Glucose (UA) Urine Ketones Urine Blood Urine Nitrate Urine Bilirubin Urine Urobilinogen Ur Leukocyte Esterase Urine RBC (Auto) Urine Microscopic WBC Ur Squamous Epith Cells Urine Bacteria Hyaline Casts Assessment & Plan (1) Acute CHF Status: Acute Priority: High (2) Pleural effusion Status: Acute (3) Diabetes mellitus type 2 in obese Status: Acute (4) Hx of CABG Status: Acute Priority: High (5) CHRISTINE (acute kidney injury) Assessment and Plan: patient appears to have acute kidney injury superimposed on chronic kidney disease perhaps stage III related to cardiorenal syndrome related to congestive heart failure. Pleural effusion Rule out urinary tract infection Anemia Recommendation Urine for culture and sensitivity Spot urine for protein and creatinine Treatment of congestive heart failure including diuretics and afterload Serum phosphorus Serum PTH Continue monitoring Status: Acute
--- NOTE | 2018-01-26 13:39 | CT ---
Date of service: 01/26/2018 PROCEDURE: CT HEAD WITHOUT CONTRAST. HISTORY: altered mental status COMPARISON: None available. TECHNIQUE: Axial computed tomography images were obtained through the head/brain without intravenous contrast. Radiation dose: Total exam DLP = 1073.4 mGy-cm. This CT exam was performed using one or more of the following dose reduction techniques: Automated exposure control, adjustment of the mA and/or kV according to patient size, and/or use of iterative reconstruction technique. FINDINGS: HEMORRHAGE: No intracranial hemorrhage. BRAIN: No mass effect or edema. There is mild cerebral atrophy. In few scattered frontotemporoparietal deep white matter chronic appearing microvascular ischemic changes. VENTRICLES: Unremarkable. No hydrocephalus. CALVARIUM: Unremarkable. PARANASAL SINUSES: Unremarkable as visualized. No significant inflammatory changes. MASTOID AIR CELLS: Unremarkable as visualized. No inflammatory changes. OTHER FINDINGS: None. IMPRESSION: No intracranial hemorrhage or mass effect. Mild cerebral atrophy and few scattered fronto temporal parietal deep white matter chronic appearing microvascular ischemic changes.
--- NOTE | 2018-01-26 14:31 | CP.PCM.HP ---
History of Present Illness - History of Present Illness History of Present Illness: 87 y/o F with a PMHx of CAD recent CABG , HTN, hyperlipidemia and pleural effusion is admitted due to altered mental status and dyspnea. According to her children, pt has been confused for a few days and not recognizing people. Pt recently had pleural tap, removing 1 L 10 days ago and 1.5L 2 weeks ago. Today, pt was seen and examined by bedside with Dr Miles. Pt could not recognized Dr Miles, knowing that pt has met Dr Miles for more than 10 years. Pt looks confused and unable to answer specific questions such as today's date or her niece's name. Pt afebrile with No acute events overnight. PMD: Dr Miles At ER: she was given IV lasix 40 mg x1, duoneb, methylprednisolone. ABG reviewed and pt was subsequently placed on BiPap. Present on Admission - Present on Admission Any Indicators Present on Admission: No Review of Systems - Review of Systems Systems not reviewed;Unavailable: Respiratory Distress - Cardiovascular Cardiovascular: Dyspnea - Respiratory Respiratory: Dyspnea - Neurological Neurological: Confusion Past Patient History - Tetanus Immunizations Tetanus Immunization: Unknown - Past Medical History & Family History Past Medical History?: Yes - Past Social History Smoking Status: Former Smoker - CARDIAC Hx Congestive Heart Failure: Yes Hx Hypercholesterolemia: Yes Hx Hypertension: Yes - PULMONARY Hx Asthma: Yes Hx Bronchitis: Yes Hx Pneumonia: Yes - NEUROLOGICAL Hx Neurological Disorder: No - HEENT Hx HEENT Problems: No - RENAL Hx Chronic Kidney Disease: No - ENDOCRINE/METABOLIC Hx Endocrine Disorders: No - HEMATOLOGICAL/ONCOLOGICAL Hx Blood Disorders: No - INTEGUMENTARY Hx Dermatological Problems: No - MUSCULOSKELETAL/RHEUMATOLOGICAL Hx Musculoskeletal Disorders: No Hx Falls: No - GASTROINTESTINAL Hx Gastrointestinal Disorders: No - GENITOURINARY/GYNECOLOGICAL Hx Genitourinary Disorders: No - PSYCHIATRIC Hx Anxiety: Yes - SURGICAL HISTORY Hx Coronary Artery Bypass Graft: Yes - ANESTHESIA Hx Anesthesia: Yes Hx Anesthesia Reactions: No Hx Malignant Hyperthermia: No Meds Allergies/Adverse Reactions: Allergies Allergy/AdvReac Type Severity Reaction Status Date / Time No Known Allergies Allergy Verified 01/25/18 11:05 Physical Exam - Constitutional Appears: In Acute Distress, Confused - Head Exam Head Exam: ATRAUMATIC, NORMAL INSPECTION - Eye Exam Eye Exam: EOMI - ENT Exam ENT Exam: Mucous Membranes Dry - Neck Exam Neck exam: Positive for: Full Rom. Negative for: Lymphadenopathy, Meningismus - Respiratory Exam Respiratory Exam: Decreased Breath Sounds, Wheezes. absent: Accessory Muscle Use, Rales, Rhonchi - Cardiovascular Exam Cardiovascular Exam: +S1, +S2 - GI/Abdominal Exam GI & Abdominal Exam: Soft. absent: Distended, Hernia, Rigid, Tenderness - Extremities Exam Extremities exam: Negative for: calf tenderness, tenderness - Neurological Exam Neurological exam: Altered Results - Vital Signs Recent Vital Signs: Last Vital Signs Temp 98.7 F 01/26/18 08:00 Pulse 103 H 01/26/18 10:00 Resp 13 01/26/18 10:00 BP 121/91 H 01/26/18 10:06 Pulse Ox 97 01/26/18 10:00 - Labs Result Diagrams: 01/26/18 08:32 01/26/18 08:32 Labs: Laboratory Results - last 24 hr 01/25/18 01/25/18 01/26/18 12:00 19:16 08:32 WBC 13.3 H RBC 3.53 L Hgb 9.4 L Hct 31.2 L MCV 88.3 MCH 26.7 L MCHC 30.2 L RDW 16.8 H Plt Count 236 Sodium Potassium Chloride Carbon Dioxide Anion Gap BUN Creatinine Est GFR ( Amer) Est GFR (Non-Af Amer) Random Glucose Hemoglobin A1c 5.4 Calcium Total Bilirubin AST ALT Alkaline Phosphatase Ammonia Total Protein Albumin Globulin Albumin/Globulin Ratio Urine Color Agatha Urine Clarity Turbid Urine pH 5.0 Ur Specific [place] 1.013 Urine Protein 100 Urine Glucose (UA) Neg Urine Ketones Negative Urine Blood Small Urine Nitrate Negative Urine Bilirubin Negative Urine Urobilinogen 2.0 H Ur Leukocyte Esterase Large Urine RBC (Auto) 6 H Urine Microscopic WBC 54 H Ur Squamous Epith Cells 6 H Urine Bacteria Many H Hyaline Casts 0-2 01/26/18 01/26/18 08:32 08:32 WBC RBC Hgb Hct MCV MCH MCHC RDW Plt Count Sodium 141 Potassium 4.8 Chloride 90 L Carbon Dioxide 37 H Anion Gap 19 BUN 77 H Creatinine 3.9 H Est GFR ( Amer) 13 Est GFR (Non-Af Amer) 11 Random Glucose 148 H Hemoglobin A1c Calcium 9.3 Total Bilirubin 1.6 H AST 324 H ALT 314 H Alkaline Phosphatase 77 Ammonia 41 D Total Protein 7.1 Albumin 3.6 Globulin 3.5 Albumin/Globulin Ratio 1.0 Urine Color Urine Clarity Urine pH Ur Specific [place] Urine Protein Urine Glucose (UA) Urine Ketones Urine Blood Urine Nitrate Urine Bilirubin Urine Urobilinogen Ur Leukocyte Esterase Urine RBC (Auto) Urine Microscopic WBC Ur Squamous Epith Cells Urine Bacteria Hyaline Casts Assessment & Plan - Assessment and Plan (Free Text) Assessment: 87 y/o F with a PMHx of CAD recent CABG , HTN, hyperlipidemia and pleural effusion is admitted due to altered mental status and dyspnea PLAN: --Stable --Admitted to ICU --LFT adb ammonium level seem to be elevating. Will order US Abdomen to r/o liver congestion. --Cardiology, Dr Perez --Nephrology, Dr Tellez --Pulmonology, Dr Marie --General Surgery, Dr Romeo --Continue with BiPAP --Home meds resumed --Continue management as ordered. Case discussed with Dr Jd Benítez, PGY-2 - Date & Time Date: 01/26/18 Time: 10:00
[2018-01-26] MEDS ORDERED: Lidocaine 1% Inj (20ml) ONE (14:54)
--- NOTE | 2018-01-26 14:58 | CP.PCM.PN ---
Subjective - Date & Time of Evaluation Date of Evaluation: 01/26/18 Time of Evaluation: 14:56 - Subjective Subjective: Reason for consultation: Recurrent left pleural effusion. Requested by Dr. Miles. pt s/e. 87 yo female with pmh HTN,CHF, CABG Renal failure-Rxed in the past with mutiple thoracenteses for resp sx from pleural effusion, left. ct of chest reviewed. Compressive atelectasis of left lung due to effusion. It appears the lung would be readily expandable by evacating the effusion either by a chest tube and talc slurry pleurodesis or Pleurex catheter. Family wants to have pt transferred the pt over to [facility]. Reconsult us prn. Objective - Vital Signs/Intake and Output Vital Signs (last 24 hours): Temp Pulse Resp BP Pulse Ox 98.7 F 103 H 13 121/91 H 97 01/26/18 08:00 01/26/18 10:00 01/26/18 10:00 01/26/18 10:06 01/26/18 10:00 Intake and Output: 01/26/18 01/26/18 06:59 18:59 Intake Total 20 Output Total 200 Balance -200 20 - Medications Medications: Current Medications Alprazolam (Xanax) 0.5 mg PO Q12 PRN PRN Reason: Anxiety Aspirin (Ecotrin) 81 mg PO DAILY [facility] Atorvastatin Calcium (Lipitor) 20 mg PO DAILY [facility] Last Admin: 01/26/18 08:55 Dose: 20 mg Clopidogrel Bisulfate (Plavix) 75 mg PO DAILY [facility] Furosemide (Lasix) 40 mg PO DAILY [facility] Last Admin: 01/26/18 08:55 Dose: 40 mg Metoprolol Succinate (Toprol Xl) 25 mg PO DAILY [facility] Last Admin: 01/26/18 08:56 Dose: 25 mg Senna/Docusate Sodium (Senokot S 50 Mg-8.6 Mg) 1 tab PO HS [facility] Last Admin: 01/25/18 22:05 Dose: Not Given Sertraline HCl (Zoloft) 25 mg PO QPM [facility] - Labs Labs: 01/26/18 08:32 01/26/18 08:32 PT 13.7 Seconds (9.8-13.1) H 01/25/18 12:00 INR 1.2 01/25/18 12:00 APTT 26.8 Seconds (25.6-37.1) 01/25/18 12:00
--- NOTE | 2018-01-26 15:24 | PCM.RRT ---
<Opal Landin - Last Filed: 01/26/18 15:22> EXTERNAL AUDITOR Nurse Assessment - Ventilator Settings FIO2 (% Oxygen): 40 I.Reason for EXTERNAL AUDITOR - A) Acute Change in Patient: (Select all that apply): Acute change in SpO2 less (78%) Subjective: EXTERNAL AUDITOR called for 87 yo female admitted for pulmonary edema secondary to CHF due to acute desaturation. Patient was undergoing PICC line insertion when she desated to 78%. Patient was agitated at the time and tachypneic. She was also started on bag mask ventilation. No other complaints, patient denied any chest pain, palpations, nausea, vomiting, diarrhea. - Neurological Status (Select all that apply): Alert, Responsive, Oriented - Respiratory Oxygen Delivery Method: Non Rebreather @% - Constitutional Appears: Non-toxic, In Acute Distress - Head Head Exam: ATRAUMATIC - Eyes Eye Exam: EOMI, PERRL - Respiratory Exam Respiratory Exam: Accessory Muscle Use, Decreased Breath Sounds, Rales, Wheezes. absent: Clear to Ausculation Bilateral, NORMAL BREATHING PATTERN - Cardiovascular Exam Cardiovascular Exam: Tachycardia, RRR, +S1, +S2. absent: REGULAR RHYTHM - Neurological Exam Neurological Exam: Alert, Awake, Oriented x3 - Extremities Exam Extremities Exam: Pedal Edema Plan - Assessment of Findings&Treatment Plan 87 yo female had EXTERNAL AUDITOR called for desaturation. Patient was placed in semi-fowlers position, transferred to stretcher. Patient pulse ox improved and patient became less agitated. Blood pressure improved to 106/67. Heart rate decreased to 110. Patient was put on NC at 6L. Patient was alert, oriented, and in stable condition at end of EXTERNAL AUDITOR. Patient was sent back to ICU in stable condition. <Beena Ortiz - Last Filed: 01/26/18 16:08> EXTERNAL AUDITOR Nurse Assessment - Vital Signs Vital Signs: Rapid Response Vital Sign Blood Pressure 75/47 Pulse Rate 118 Respiratory Rate 26 Temperature 97.9 F Oxygen Saturation 83 - Vital Signs at end of EXTERNAL AUDITOR Vital Signs at end of EXTERNAL AUDITOR: Rapid Response End Vital Sign Blood Pressure 103/67 Pulse Rate 116 Respiratory Rate 24 O2 Sat by Pulse Oximetry 92 Attending/Attestation - Attestation I have personally seen and examined this patient.: Yes I have fully participated in the care of the patient.: Yes I have reviewed all pertinent clinical information, including history, physical exam and plan: Yes Notes (Text): 01/26/18 16:08 Seen examined and discussed with resident. Agree with findings and plan as above.
--- NOTE | 2018-01-26 15:29 | CP.PCM.CON ---
History of Present Illness - History of Present Illness History of Present Illness: Pulmonary consult for a 87 y/o F, PMHx of Asthma, PNA, Bronchitis, CHF, CABG, also s/p recent Thoracentesis for Pleural effusions ( removal 1 L 10 days prior and 1.5 L 2 weeks ago). 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 Pt was given lasix, Prednisone, after ABG reviewed was placed on BIPAP, High Flow O2 and admitted to ICU Unit. Worsening symptoms: MELENDEZ, found with worsening pleural effusion on Left, small on R lung as per CXR. Aggravated factor; Movements/ADLs. Pr denied: Fever, chills, n/v/d, abdominal pain, urinary symptoms, CP, syncope, cough, sick contact. EKG: Sinus rhythm with PVCs Review of Systems - Constitutional Constitutional: Weakness - EENT Eyes: Requires Corrective Lenses Ears: Decreased Hearing Nose/Mouth/Throat: Other (negative) - Cardiovascular Cardiovascular: Leg Edema, Rapid Heart Rate - Respiratory Respiratory: Dyspnea, Dyspnea on Exertion - Gastrointestinal Gastrointestinal: Other (negative) - Genitourinary Genitourinary: Urinary Incontinence - Musculoskeletal Musculoskeletal: Other (negative) - Integumentary Integumentary: Other (negative) - Neurological Neurological: Confusion, Weakness - Psychiatric Psychiatric: Anxiety - Endocrine Endocrine: Other (negative) - Hematologic/Lymphatic Hematologic: Other (anemia.) Past Patient History - Tetanus Immunizations Tetanus Immunization: Unknown - Past Medical History & Family History Past Medical History?: Yes Pertinent Family History: Unknown - Past Social History Smoking Status: Former Smoker Alcohol: None Drugs: Denies Home Situation {Lives}: With Family - CARDIAC Hx Cardiac Disorders: Yes Hx Congestive Heart Failure: Yes Hx Hypercholesterolemia: Yes Hx Hypertension: Yes - PULMONARY Hx Respiratory Disorders: Yes Hx Asthma: Yes Hx Bronchitis: Yes Hx Pneumonia: Yes - NEUROLOGICAL Hx Neurological Disorder: No - HEENT Hx HEENT Problems: Yes (Wear corrective lenses) Hx Deafness: Yes (mild) - RENAL Hx Chronic Kidney Disease: No - ENDOCRINE/METABOLIC Hx Endocrine Disorders: Yes Hx Diabetes Mellitus Type 2: Yes - HEMATOLOGICAL/ONCOLOGICAL Hx Blood Disorders: No - INTEGUMENTARY Hx Dermatological Problems: No - MUSCULOSKELETAL/RHEUMATOLOGICAL Hx Musculoskeletal Disorders: No Hx Falls: No - GASTROINTESTINAL Hx Gastrointestinal Disorders: No - GENITOURINARY/GYNECOLOGICAL Hx Genitourinary Disorders: No - PSYCHIATRIC Hx Psychophysiologic Disorder: Yes Hx Anxiety: Yes - SURGICAL HISTORY Hx Surgeries: Yes Hx Coronary Artery Bypass Graft: Yes - ANESTHESIA Hx Anesthesia: Yes Hx Anesthesia Reactions: No Hx Malignant Hyperthermia: No Meds Allergies/Adverse Reactions: Allergies Allergy/AdvReac Type Severity Reaction Status Date / Time No Known Allergies Allergy Verified 01/25/18 11:05 - Medications Medications: Current Medications Alprazolam (Xanax) 0.5 mg PO Q12 PRN PRN Reason: Anxiety Aspirin (Ecotrin) 81 mg PO DAILY [facility] Atorvastatin Calcium (Lipitor) 20 mg PO DAILY [facility] Last Admin: 01/26/18 08:55 Dose: 20 mg Clopidogrel Bisulfate (Plavix) 75 mg PO DAILY [facility] Furosemide (Lasix) 40 mg PO DAILY [facility] Last Admin: 01/26/18 08:55 Dose: 40 mg Metoprolol Succinate (Toprol Xl) 25 mg PO DAILY [facility] Last Admin: 01/26/18 08:56 Dose: 25 mg Senna/Docusate Sodium (Senokot S 50 Mg-8.6 Mg) 1 tab PO [facility] Last Admin: 01/25/18 22:05 Dose: Not Given Sertraline HCl (Zoloft) 25 mg PO QPM [facility] Physical Exam - Constitutional Appears: No Acute Distress - Head Exam Head Exam: NORMAL INSPECTION - Eye Exam Eye Exam: PERRL - ENT Exam Additional comments: Hard of hearing - Neck Exam Neck exam: Positive for: Normal Inspection - Respiratory Exam Respiratory Exam: Decreased Breath Sounds (B/L, at bases L>R) - Cardiovascular Exam Cardiovascular Exam: REGULAR RHYTHM, Systolic Murmur - GI/Abdominal Exam GI & Abdominal Exam: Hypoactive Bowel Sounds, Soft - Extremities Exam Additional comments: Legs edema L>R, ecchymosis BUE. - Neurological Exam Additional comments: Awake, confused, follows commands, generalized weakness. - Skin Skin Exam: Pallor, Warm Results - Vital Signs Recent Vital Signs: Last Vital Signs Temp 98.7 F 01/26/18 08:00 Pulse 103 H 01/26/18 10:00 Resp 13 01/26/18 10:00 BP 121/91 H 01/26/18 10:06 Pulse Ox 97 01/26/18 10:00 reviewed J.P. - Labs Result Diagrams: 01/26/18 08:32 01/26/18 08:32 Labs: Laboratory Results - last 24 hr 01/25/18 01/25/18 01/26/18 12:00 19:16 08:32 WBC 13.3 H RBC 3.53 L Hgb 9.4 L Hct 31.2 L MCV 88.3 MCH 26.7 L MCHC 30.2 L RDW 16.8 H Plt Count 236 Sodium Potassium Chloride Carbon Dioxide Anion Gap BUN Creatinine Est GFR ( Amer) Est GFR (Non-Af Amer) Random Glucose Hemoglobin A1c 5.4 Calcium Phosphorus Total Bilirubin AST ALT Alkaline Phosphatase Ammonia Total Protein Albumin Globulin Albumin/Globulin Ratio Urine Color Agatha Urine Clarity Turbid Urine pH 5.0 Ur Specific [place] 1.013 Urine Protein 100 Urine Glucose (UA) Neg Urine Ketones Negative Urine Blood Small Urine Nitrate Negative Urine Bilirubin Negative Urine Urobilinogen 2.0 H Ur Leukocyte Esterase Large Urine RBC (Auto) 6 H Urine Microscopic WBC 54 H Ur Squamous Epith Cells 6 H Urine Bacteria Many H Hyaline Casts 0-2 01/26/18 01/26/18 01/26/18 08:32 08:32 14:07 WBC RBC Hgb Hct MCV MCH MCHC RDW Plt Count Sodium 141 Potassium 4.8 Chloride 90 L Carbon Dioxide 37 H Anion Gap 19 BUN 77 H Creatinine 3.9 H Est GFR ( Amer) 13 Est GFR (Non-Af Amer) 11 Random Glucose 148 H Hemoglobin A1c Calcium 9.3 Phosphorus 6.8 H Total Bilirubin 1.6 H AST 324 H ALT 314 H Alkaline Phosphatase 77 Ammonia 41 D Total Protein 7.1 Albumin 3.6 Globulin 3.5 Albumin/Globulin Ratio 1.0 Urine Color Urine Clarity Urine pH Ur Specific [place] Urine Protein Urine Glucose (UA) Urine Ketones Urine Blood Urine Nitrate Urine Bilirubin Urine Urobilinogen Ur Leukocyte Esterase Urine RBC (Auto) Urine Microscopic WBC Ur Squamous Epith Cells Urine Bacteria Hyaline Casts reviewed J.P. - EKG Data EKG comments: reviewed J.P. - Imaging and Cardiology Chest x-ray Status: Report reviewed by me (Virgil) CT scan - head Status: Report reviewed by me (J.P.) Assessment & Plan (1) Hypercapnic respiratory failure Status: Acute Priority: High (2) Pleural effusion, left Status: Acute Priority: High (3) CHF exacerbation Status: Acute Priority: High (4) COPD (chronic obstructive pulmonary disease) Status: Acute Priority: High - Assessment and Plan (Free Text) Plan: F/U Chest CT, continue NC 3 L/M, lasix, for PICC insertion, planning OR for Thoracentesis tomorrow. - Date & Time Date: 01/26/18 Time: 10:00
--- NOTE | 2018-01-26 16:21 | CP.PCM.CON ---
History of Present Illness - History of Present Illness History of Present Illness: Consultation for evaluation of SOB/ hypercarbic respiratory failure / CHRISTINE HPI: 87 year old female with hx of severe CAD s/p CABG admitted with MS changes, hypercarbic respiratory failure and CHRISTINE. 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 She has new onset CHRISTINE with worsening renal function. Very confused over the course of last 3 days. Review of Systems - Review of Systems Systems not reviewed;Unavailable: Acuity of Condition - Constitutional Constitutional: As Per HPI - EENT Eyes: As Per HPI Ears: As Per HPI Nose/Mouth/Throat: As Per HPI - Breasts Breasts: As Per HPI - Cardiovascular Cardiovascular: As Per HPI - Respiratory Respiratory: As Per HPI - Gastrointestinal Gastrointestinal: As Per HPI - Genitourinary Genitourinary: As Per HPI - Reproductive: Female Reproductive:Female: As Per HPI - Menstruation Menstruation: As Per HPI - Musculoskeletal Musculoskeletal: As Per HPI - Integumentary Integumentary: As Per HPI - Neurological Neurological: As Per HPI - Psychiatric Psychiatric: As Per HPI - Endocrine Endocrine: As Per HPI - Hematologic/Lymphatic Hematologic: As Per HPI Past Patient History - Tetanus Immunizations Tetanus Immunization: Unknown - Past Medical History & Family History Past Medical History?: Yes - Past Social History Smoking Status: Former Smoker - CARDIAC Hx Congestive Heart Failure: Yes Hx Hypercholesterolemia: Yes Hx Hypertension: Yes - PULMONARY Hx Asthma: Yes Hx Bronchitis: Yes Hx Pneumonia: Yes - NEUROLOGICAL Hx Neurological Disorder: No - HEENT Hx HEENT Problems: No - RENAL Hx Chronic Kidney Disease: No - ENDOCRINE/METABOLIC Hx Endocrine Disorders: No - HEMATOLOGICAL/ONCOLOGICAL Hx Blood Disorders: No - INTEGUMENTARY Hx Dermatological Problems: No - MUSCULOSKELETAL/RHEUMATOLOGICAL Hx Musculoskeletal Disorders: No Hx Falls: No - GASTROINTESTINAL Hx Gastrointestinal Disorders: No - GENITOURINARY/GYNECOLOGICAL Hx Genitourinary Disorders: No - PSYCHIATRIC Hx Anxiety: Yes - SURGICAL HISTORY Hx Coronary Artery Bypass Graft: Yes - ANESTHESIA Hx Anesthesia: Yes Hx Anesthesia Reactions: No Hx Malignant Hyperthermia: No Meds Allergies/Adverse Reactions: Allergies Allergy/AdvReac Type Severity Reaction Status Date / Time No Known Allergies Allergy Verified 01/25/18 11:05 - Medications Medications: Current Medications Alprazolam (Xanax) 0.5 mg PO Q12 PRN PRN Reason: Anxiety Aspirin (Ecotrin) 81 mg PO DAILY [facility] Atorvastatin Calcium (Lipitor) 20 mg PO DAILY [facility] Last Admin: 01/26/18 08:55 Dose: 20 mg Clopidogrel Bisulfate (Plavix) 75 mg PO DAILY [facility] Furosemide (Lasix) 40 mg PO DAILY [facility] Last Admin: 01/26/18 08:55 Dose: 40 mg Metoprolol Succinate (Toprol Xl) 25 mg PO DAILY [facility] Last Admin: 01/26/18 08:56 Dose: 25 mg Senna/Docusate Sodium (Senokot S 50 Mg-8.6 Mg) 1 tab PO HS [facility] Last Admin: 01/25/18 22:05 Dose: Not Given Sertraline HCl (Zoloft) 25 mg PO QPM [facility] Physical Exam - Constitutional Appears: Well - Head Exam Head Exam: ATRAUMATIC, NORMAL INSPECTION, NORMOCEPHALIC - Eye Exam Eye Exam: EOMI, Normal appearance, PERRL Pupil Exam: NORMAL ACCOMODATION, PERRL - ENT Exam ENT Exam: Mucous Membranes Moist, Normal Exam - Neck Exam Neck exam: Positive for: Normal Inspection - Respiratory Exam Respiratory Exam: Clear to Auscultation Bilateral, NORMAL BREATHING PATTERN - Cardiovascular Exam Cardiovascular Exam: REGULAR RHYTHM, +S1, +S2, Systolic Murmur - GI/Abdominal Exam GI & Abdominal Exam: Normal Bowel Sounds, Soft. absent: Tenderness - Extremities Exam Extremities exam: Positive for: normal inspection, pedal edema - Back Exam Back exam: NORMAL INSPECTION - Neurological Exam Neurological exam: Alert, CN II-XII Intact, Normal Gait, Oriented x3, Reflexes Normal - Psychiatric Exam Psychiatric exam: Normal Affect, Normal Mood - Skin Skin Exam: Dry, Intact, Normal Color, Warm Results - Vital Signs Recent Vital Signs: Last Vital Signs Temp 97.9 F 01/26/18 15:00 Pulse 116 H 01/26/18 15:15 Resp 24 01/26/18 15:15 BP 103/67 01/26/18 15:15 Pulse Ox 88 L 01/26/18 15:00 - Labs Result Diagrams: 01/26/18 08:32 01/26/18 08:32 Labs: Laboratory Results - last 24 hr 01/25/18 01/26/18 01/26/18 19:16 08:32 08:32 WBC 13.3 H RBC 3.53 L Hgb 9.4 L Hct 31.2 L MCV 88.3 MCH 26.7 L MCHC 30.2 L RDW 16.8 H Plt Count 236 Sodium 141 Potassium 4.8 Chloride 90 L Carbon Dioxide 37 H Anion Gap 19 BUN 77 H Creatinine 3.9 H Est GFR ( Amer) 13 Est GFR (Non-Af Amer) 11 Random Glucose 148 H Calcium 9.3 Phosphorus Total Bilirubin 1.6 H AST 324 H ALT 314 H Alkaline Phosphatase 77 Ammonia Total Protein 7.1 Albumin 3.6 Globulin 3.5 Albumin/Globulin Ratio 1.0 Urine Color Agatha Urine Clarity Turbid Urine pH 5.0 Ur Specific [place] 1.013 Urine Protein 100 Urine Glucose (UA) Neg Urine Ketones Negative Urine Blood Small Urine Nitrate Negative Urine Bilirubin Negative Urine Urobilinogen 2.0 H Ur Leukocyte Esterase Large Urine RBC (Auto) 6 H Urine Microscopic WBC 54 H Ur Squamous Epith Cells 6 H Urine Bacteria Many H Hyaline Casts 0-2 01/26/18 01/26/18 08:32 14:07 WBC RBC Hgb Hct MCV MCH MCHC RDW Plt Count Sodium Potassium Chloride Carbon Dioxide Anion Gap BUN Creatinine Est GFR ( Amer) Est GFR (Non-Af Amer) Random Glucose Calcium Phosphorus 6.8 H Total Bilirubin AST ALT Alkaline Phosphatase Ammonia 41 D Total Protein Albumin Globulin Albumin/Globulin Ratio Urine Color Urine Clarity Urine pH Ur Specific [place] Urine Protein Urine Glucose (UA) Urine Ketones Urine Blood Urine Nitrate Urine Bilirubin Urine Urobilinogen Ur Leukocyte Esterase Urine RBC (Auto) Urine Microscopic WBC Ur Squamous Epith Cells Urine Bacteria Hyaline Casts Assessment & Plan (1) Acute CHF Assessment and Plan: start on low dose IV milrinone at 0.375 mcg/kg/min hold diuretics cont dapt cont bb thoracentesis with IR Status: Acute Priority: High (2) CHRISTINE (acute kidney injury) Status: Acute (3) COPD exacerbation Status: Acute (4) Confusion Status: Acute (5) Pleural effusion Status: Acute (6) Acute dyspnea Status: Acute (7) Diabetes mellitus type 2 in obese Status: Acute (8) Hx of CABG Status: Acute Priority: High
[2018-01-26] MEDS: Sodium Chloride 0.9% 1,000 ML IV SCH (16:53)
[2018-01-26 17:04] LABS: CREATININE, RANDOM URINE 111.7 mg/dL
[2018-01-26] MEDS: Milrinone 20mg/100ml D5W 100 ML IV SCH (17:42)
[2018-01-26] MEDS: Docusate-Senna 50 mg-8.6 mg Tab PO SCH (22:55)
[2018-01-27] MEDS: Milrinone 20mg/100ml D5W 100 ML IV SCH ×2 (04:15→15:28)
[2018-01-27 05:36] LABS: HEMOGLOBIN 8.3 g/dL (12.0-16.0); MEAN CELL VOLUME 86.7 fl (81.0-99.0); MEAN CORPUSCULAR HEMOGLOBIN 26.9 pg (27.0-31.0); RBC 3.11 Mil/uL (3.80-5.20); RED CELL DISTRIBUTION WIDTH 16.9 % (11.5-14.5); WHITE BLOOD COUNT 12.8 K/uL (4.8-10.8)
[2018-01-27 05:48] LABS: INR 1.3; PROTHROMBIN TIME 15.2 Seconds (9.8-13.1)
[2018-01-27 05:51] LABS: PARTIAL THROMBOPLASTIN TIME 20.6 Seconds (25.6-37.1)
[2018-01-27 06:09] LABS: CALCIUM 8.6 mg/dL (8.4-10.2)
--- NOTE | 2018-01-27 06:57 | CP.PCM.PN ---
Subjective - Date & Time of Evaluation Date of Evaluation: 01/27/18 Time of Evaluation: 06:55 - Subjective Subjective: Surgery Pt seen and examined. 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 Pt doesnt follow commands. Seems lethargic. On BIPAP. Objective - Vital Signs/Intake and Output Vital Signs (last 24 hours): Temp Pulse Resp BP Pulse Ox 98.4 F 119 H 34 H 110/73 97 01/27/18 04:00 01/27/18 06:00 01/27/18 06:00 01/27/18 06:00 01/27/18 06:00 Intake and Output: 01/26/18 01/27/18 18:59 06:59 Intake Total 140 820 Output Total 150 285 Balance -10 535 - Medications Medications: Current Medications Alprazolam (Xanax) 0.5 mg PO Q12 PRN PRN Reason: Anxiety Last Admin: 01/27/18 00:02 Dose: 0.5 mg Aspirin (Ecotrin) 81 mg PO DAILY [facility] Atorvastatin Calcium (Lipitor) 20 mg PO DAILY [facility] Last Admin: 01/26/18 08:55 Dose: 20 mg Clopidogrel Bisulfate (Plavix) 75 mg PO DAILY [facility] Furosemide (Lasix) 40 mg PO DAILY [facility] Last Admin: 01/26/18 08:55 Dose: 40 mg Milrinone Lactate/Dextrose (Primacor 20mg/100ml D5w) 100 mls @ 9.507 mls/hr IV .[id number] [facility]; Protocol Last Admin: 01/27/18 04:15 Dose: 0.375 mcg/kg/min, 9.507 mls/hr Sodium Chloride (Sodium Chloride 0.9%) 1,000 mls @ 50 mls/hr IV .Q20H [facility] Stop: 01/27/18 16:48 Last Admin: 01/26/18 16:53 Dose: 50 mls/hr Metoprolol Succinate (Toprol Xl) 25 mg PO DAILY [facility] Last Admin: 01/26/18 08:56 Dose: 25 mg Senna/Docusate Sodium (Senokot S 50 Mg-8.6 Mg) 1 tab PO HS [facility] Last Admin: 01/26/18 22:55 Dose: 1 tab Sertraline HCl (Zoloft) 25 mg PO QPM [facility] Last Admin: 01/26/18 17:01 Dose: 25 mg - Labs Labs: 01/27/18 04:35 01/27/18 04:35 PT 15.2 Seconds (9.8-13.1) H 01/27/18 04:35 INR 1.3 01/27/18 04:35 APTT 20.6 Seconds (25.6-37.1) L 01/27/18 04:35 - Constitutional Appears: In Acute Distress, Confused, Chronically Ill - Head Exam Head Exam: ATRAUMATIC, NORMAL INSPECTION, NORMOCEPHALIC - Eye Exam Eye Exam: EOMI - Neck Exam Neck Exam: Normal Inspection - Respiratory Exam Respiratory Exam: Respiratory Distress Additional comments: on BIPAP - Cardiovascular Exam Cardiovascular Exam: Tachycardia - GI/Abdominal Exam GI & Abdominal Exam: Soft. absent: Tenderness - Exam Exam: NORMAL INSPECTION (Folely in place ) - Neurological Exam Neurological Exam: Altered - Skin Skin Exam: Dry, Intact Assessment and Plan - Assessment and Plan (Free Text) Assessment: recurrent L pleural effusion hypercarbic respiratory failure and CHRISTINE. Possible OR Wednesday for VATs Pleurodesis Medical management Will JEEVAN Romeo
[2018-01-27] MEDS: Metoprolol Succinate 25 mg XL Tab PO SCH (08:22)
--- NOTE | 2018-01-27 09:19 | RAD ---
Date of service: 01/26/2018 HISTORY: SOB Severe Plura Effusion COMPARISON: 01/25/2018 FINDINGS: LUNGS: Extensive left-sided opacity predominantly or exclusively due to a large left pleural effusion. No definite infiltrate. No right-sided infiltrate. PLEURA: Large left and small right pleural effusion. No pneumothorax. Please note that the right lung apex is obscured by the patient's mandible. CARDIOVASCULAR: Heart size cannot be assessed due to large left pleural effusion. Status post CABG. Congestive change. There is atherosclerotic calcification of the aortic arch. OSSEOUS STRUCTURES: No significant abnormalities. VISUALIZED UPPER ABDOMEN: Normal. OTHER FINDINGS: None. IMPRESSION: Large left and small right pleural effusion. Limited examination. No definite infiltrate.
--- NOTE | 2018-01-27 09:53 | CP.CCUPN ---
<Emmett Reagan - Last Filed: 01/27/18 12:15> CCU Subjective - Physician Review Subjective (Free Text): 01/27/18 12:16 Pt seen and examined at bedside this AM. Pt intermittently on high flow, bipap and nasal cannula. Daughter at bedside. Pt alertness is variable. Remains afebrile. No significant events overnight. CCU Objective - Vital Signs / Intake & Output Vital Signs (Last 4 hours): Vital Signs Temp Pulse Resp BP Pulse Ox 01/27/18 09:33 100/54 L 01/27/18 08:21 24 01/27/18 08:00 98.5 F 124 H 29 H 102/67 97 01/27/18 06:00 119 H 34 H 110/73 97 Intake and Output (Last 8hrs): Intake & Output 01/26/18 01/27/18 01/27/18 22:59 06:59 14:59 Intake Total 340 580 Output Total 185 200 Balance 155 380 Weight 188 lb Intake: IV 340 580 Output: Urine 185 200 Urethral ([place]) 185 200 - Physical Exam Physical Exam Limitations: Positive for: Other (bipap) Head: Positive for: Atraumatic Extroacular Muscles: Positive for: EOMI Respiratory/Chest: Positive for: Decreased Breath Sounds, Tachypneic Cardiovascular: Positive for: Regular Rate and Rhythm, Normal S1, S2 Abdomen: Positive for: Normal Bowel Sounds. Negative for: Tenderness Psychiatric: Positive for: Alert - Medications Active Medications: Active Medications Generic Name Dose Route Start Last Admin Trade Name Freq PRN Reason Stop Dose Admin Alprazolam 0.5 mg 01/25/18 15:34 01/27/18 00:02 Xanax PO 0.5 mg Q12 PRN Administration Anxiety Aspirin 81 mg 01/26/18 09:00 Ecotrin PO DAILY [facility] Atorvastatin Calcium 20 mg 01/25/18 21:00 01/27/18 08:22 Lipitor PO Not Given DAILY [facility] Clopidogrel Bisulfate 75 mg 01/26/18 09:00 Plavix PO DAILY [facility] Milrinone Lactate/Dextrose 100 mls @ 9.507 mls/hr 01/26/18 16:30 01/27/18 04:15 Primacor 20mg/100ml D5w IV 0.375 mcg/kg/min .[id number] TOD 9.507 mls/hr Administration Protocol 0.375 MCG/KG/MIN Sodium Chloride 1,000 mls @ 50 mls/hr 01/26/18 17:00 01/26/18 16:53 Sodium Chloride 0.9% IV 01/27/18 16:48 50 mls/hr .Q20H TOD Administration Metoprolol Succinate 25 mg 01/26/18 09:00 01/27/18 08:22 Toprol Xl PO Not Given DAILY TOD Senna/Docusate Sodium 1 tab 01/25/18 22:00 01/26/18 22:55 Senokot S 50 Mg-8.6 Mg PO 1 tab HS TOD Administration Sertraline HCl 25 mg 01/25/18 18:00 01/26/18 17:01 Zoloft PO 25 mg QPM TOD Administration - Patient Studies Lab Studies: Microbiology Studies 01/25/18 19:16 Urine Culture - Preliminary Urine,Catheterized Gram Negative Shiva 01/25/18 12:00 Blood Culture - Preliminary Blood-Venous NO GROWTH AFTER 24 HOURS Lab Studies 01/27/18 01/27/18 01/27/18 Range/Units 04:35 04:35 04:35 WBC 12.8 H (4.8-10.8) K/uL RBC 3.11 L (3.80-5.20) Mil/uL Hgb 8.3 L (12.0-16.0) g/dL Hct 26.9 L (34.0-47.0) % MCV 86.7 (81.0-99.0) fl MCH 26.9 L (27.0-31.0) pg MCHC 31.0 L (33.0-37.0) g/dL RDW 16.9 H (11.5-14.5) % Plt Count 193 (130-400) K/uL PT 15.2 H (9.8-13.1) Seconds INR 1.3 APTT 20.6 L (25.6-37.1) Seconds Sodium 139 (132-148) mmol/l Potassium 4.2 (3.6-5.0) MMOL/L Chloride 93 L (98-107) mmol/L Carbon Dioxide 39 H (22-30) mmol/L Anion Gap 11 (10-20) BUN 94 H (7-17) mg/dl Creatinine 3.4 H (0.7-1.2) mg/dl Est GFR ( Amer) 15 Est GFR (Non-Af Amer) 13 Random Glucose 122 H (65-105) mg/dL Calcium 8.6 (8.4-10.2) mg/dL Phosphorus 6.2 H (2.5-4.5) mg/dl Magnesium 2.2 (1.6-2.3) MG/DL Total Bilirubin 2.1 H (0.2-1.3) mg/dl AST 461 H D (14-36) U/L ALT 349 H (9-52) U/L Alkaline Phosphatase 68 (38-126) U/L Ammonia (11-51) umo/L Total Protein 6.2 L (6.3-8.2) G/DL Albumin 3.0 L (3.5-5.0) g/dL Globulin 3.2 (2.2-3.9) gm/dL Albumin/Globulin Ratio 1.0 (1.0-2.1) Procalcitonin (0.19-0.49) NG/ML Ur Random Creatinine mg/dL U Random Total Protein (0.0-12.0) mg/dL 01/26/18 01/26/18 01/26/18 Range/Units 16:43 16:43 14:07 WBC (4.8-10.8) K/uL RBC (3.80-5.20) Mil/uL Hgb (12.0-16.0) g/dL Hct (34.0-47.0) % MCV (81.0-99.0) fl MCH (27.0-31.0) pg MCHC (33.0-37.0) g/dL RDW (11.5-14.5) % Plt Count (130-400) K/uL PT (9.8-13.1) Seconds INR APTT (25.6-37.1) Seconds Sodium (132-148) mmol/l Potassium (3.6-5.0) MMOL/L Chloride (98-107) mmol/L Carbon Dioxide (22-30) mmol/L Anion Gap (10-20) BUN (7-17) mg/dl Creatinine (0.7-1.2) mg/dl Est GFR ( Amer) Est GFR (Non-Af Amer) Random Glucose (65-105) mg/dL Calcium (8.4-10.2) mg/dL Phosphorus 6.8 H (2.5-4.5) mg/dl Magnesium (1.6-2.3) MG/DL Total Bilirubin (0.2-1.3) mg/dl AST (14-36) U/L ALT (9-52) U/L Alkaline Phosphatase (38-126) U/L Ammonia 52 H (11-51) umo/L Total Protein (6.3-8.2) G/DL Albumin (3.5-5.0) g/dL Globulin (2.2-3.9) gm/dL Albumin/Globulin Ratio (1.0-2.1) Procalcitonin (0.19-0.49) NG/ML Ur Random Creatinine 111.7 mg/dL U Random Total Protein 162.0 H (0.0-12.0) mg/dL 01/26/18 Range/Units 08:32 WBC (4.8-10.8) K/uL RBC (3.80-5.20) Mil/uL Hgb (12.0-16.0) g/dL Hct (34.0-47.0) % MCV (81.0-99.0) fl MCH (27.0-31.0) pg MCHC (33.0-37.0) g/dL RDW (11.5-14.5) % Plt Count (130-400) K/uL PT (9.8-13.1) Seconds INR APTT (25.6-37.1) Seconds Sodium (132-148) mmol/l Potassium (3.6-5.0) MMOL/L Chloride (98-107) mmol/L Carbon Dioxide (22-30) mmol/L Anion Gap (10-20) BUN (7-17) mg/dl Creatinine (0.7-1.2) mg/dl Est GFR ( Amer) Est GFR (Non-Af Amer) Random Glucose (65-105) mg/dL Calcium (8.4-10.2) mg/dL Phosphorus (2.5-4.5) mg/dl Magnesium (1.6-2.3) MG/DL Total Bilirubin (0.2-1.3) mg/dl AST (14-36) U/L ALT (9-52) U/L Alkaline Phosphatase (38-126) U/L Ammonia (11-51) umo/L Total Protein (6.3-8.2) G/DL Albumin (3.5-5.0) g/dL Globulin (2.2-3.9) gm/dL Albumin/Globulin Ratio (1.0-2.1) Procalcitonin 0.36 (0.19-0.49) NG/ML Ur Random Creatinine mg/dL U Random Total Protein (0.0-12.0) mg/dL Laboratory Results - last 24 hr 01/26/18 01/26/18 01/26/18 08:32 14:07 16:43 WBC RBC Hgb Hct MCV MCH MCHC RDW Plt Count PT INR APTT Sodium Potassium Chloride Carbon Dioxide Anion Gap BUN Creatinine Est GFR ( Amer) Est GFR (Non-Af Amer) Random Glucose Calcium Phosphorus 6.8 H Magnesium Total Bilirubin AST ALT Alkaline Phosphatase Ammonia 52 H Total Protein Albumin Globulin Albumin/Globulin Ratio Procalcitonin 0.36 Ur Random Creatinine U Random Total Protein 01/26/18 01/27/18 01/27/18 16:43 04:35 04:35 WBC 12.8 H RBC 3.11 L Hgb 8.3 L Hct 26.9 L MCV 86.7 MCH 26.9 L MCHC 31.0 L RDW 16.9 H Plt Count 193 PT INR APTT Sodium 139 Potassium 4.2 Chloride 93 L Carbon Dioxide 39 H Anion Gap 11 BUN 94 H Creatinine 3.4 H Est GFR ( Amer) 15 Est GFR (Non-Af Amer) 13 Random Glucose 122 H Calcium 8.6 Phosphorus 6.2 H Magnesium 2.2 Total Bilirubin 2.1 H AST 461 H D ALT 349 H Alkaline Phosphatase 68 Ammonia Total Protein 6.2 L Albumin 3.0 L Globulin 3.2 Albumin/Globulin Ratio 1.0 Procalcitonin Ur Random Creatinine 111.7 U Random Total Protein 162.0 H 01/27/18 04:35 WBC RBC Hgb Hct MCV MCH MCHC RDW Plt Count PT 15.2 H INR 1.3 APTT 20.6 L Sodium Potassium Chloride Carbon Dioxide Anion Gap BUN Creatinine Est GFR ( Amer) Est GFR (Non-Af Amer) Random Glucose Calcium Phosphorus Magnesium Total Bilirubin AST ALT Alkaline Phosphatase Ammonia Total Protein Albumin Globulin Albumin/Globulin Ratio Procalcitonin Ur Random Creatinine U Random Total Protein Fingerstick Blood Sugar Results: 137 Critical Care Progress Note - Nutrition Nutrition: Nutrition Category Date Time Status Heart Healthy Diet [DIET] Diets 01/27/18 Breakfast Active Assessment/Plan - Assessment and Plan (Free Text) Assessment: 87 yo F with pmhx of CAD with 6 month history of CABG (2 vessel), HTN, dyslipidemia, CHF admitted for CHF exacerbation. Plan: Loculated Pleural Effusion -CXR/CT chest -Hx of multiple pleural taps -Per Dr. Perez, will arrange for transfer to [place] to her CT surgeon. CHF exacerbation -BNP: [id number] -IV lasix held per Dr. Perez -Cardiology: Dr. Perez start: Milrinone -No empiric antibiotics: afebrile, mild leukocytosis BIPAP: -Ventilation support -Hypercapnic respiratory failure -ABG reviewed -Pulmonology: Dr. Marie -Pt tolerates for 2-3 hours. high flow and nc PRN History of CABG -Cardiology: Dr. Perez -Troponin negative x1 CHRISTINE: -BUN/Cr: 94/3.4 -Lasix held -Nephrology: Dr. Tellez:f/u: urine culture, spot urine, Phos and pth -f/u cmp Elevated transaminase: -AST: 469 -ALT: 349 -Alk Phos: 68 -T. Bili: 2.1 -US abdomen: pending HTN -home meds held DM2 -ISS -Accucheck DVT prophylaxis -SCDs Code Status: Full code Next of Kin: Son Case dw Dr.Chu Emmett Reagan MD PGY2 <Guillermo Salinas - Last Filed: 01/27/18 15:37> CCU Subjective - Physician Review Subjective (Free Text): Attestation: Patient seen and examined at the bedside with Resident Dr. Ryanne Reagan; and I agree with his outline of plans and management documented above and below, reflecting my review of all applicable clinical data, and participation in the care of the patient throughout the day in ICU; today, January 27, 2018.
--- NOTE | 2018-01-27 09:54 | CP.PCM.PN ---
Subjective - Date & Time of Evaluation Date of Evaluation: 01/27/18 Time of Evaluation: 09:55 - Subjective Subjective: patient is sitting up in bed Vital sign noted with blood pressure systolic around 100 Complaining of somewhat less shortness of breath Objective - Vital Signs/Intake and Output Vital Signs (last 24 hours): Temp Pulse Resp BP Pulse Ox 98.5 F 124 H 24 102/67 97 01/27/18 08:00 01/27/18 08:00 01/27/18 08:21 01/27/18 08:00 01/27/18 08:00 Intake and Output: 01/27/18 01/27/18 06:59 18:59 Intake Total 820 Output Total 285 Balance 535 - Medications Medications: Current Medications Alprazolam (Xanax) 0.5 mg PO Q12 PRN PRN Reason: Anxiety Last Admin: 01/27/18 00:02 Dose: 0.5 mg Aspirin (Ecotrin) 81 mg PO DAILY [facility] Atorvastatin Calcium (Lipitor) 20 mg PO DAILY [facility] Last Admin: 01/27/18 08:22 Dose: Not Given Clopidogrel Bisulfate (Plavix) 75 mg PO DAILY [facility] Furosemide (Lasix) 40 mg PO DAILY [facility] Last Admin: 01/27/18 09:33 Dose: Not Given Milrinone Lactate/Dextrose (Primacor 20mg/100ml D5w) 100 mls @ 9.507 mls/hr IV .[id number] [facility]; Protocol Last Admin: 01/27/18 04:15 Dose: 0.375 mcg/kg/min, 9.507 mls/hr Sodium Chloride (Sodium Chloride 0.9%) 1,000 mls @ 50 mls/hr IV .Q20H [facility] Stop: 01/27/18 16:48 Last Admin: 01/26/18 16:53 Dose: 50 mls/hr Metoprolol Succinate (Toprol Xl) 25 mg PO DAILY [facility] Last Admin: 01/27/18 08:22 Dose: Not Given Senna/Docusate Sodium (Senokot S 50 Mg-8.6 Mg) 1 tab PO HS [facility] Last Admin: 01/26/18 22:55 Dose: 1 tab Sertraline HCl (Zoloft) 25 mg PO QPM [facility] Last Admin: 01/26/18 17:01 Dose: 25 mg - Labs Labs: 01/27/18 04:35 11/08/18 04:35 PT 15.2 Seconds (9.8-13.1) H 01/27/18 04:35 INR 1.3 01/27/18 04:35 APTT 20.6 Seconds (25.6-37.1) L 01/27/18 04:35 - Constitutional Appears: No Acute Distress - Eye Exam Eye Exam: Conjunctival injection - ENT Exam ENT Exam: Mucous Membranes Moist - Neck Exam Neck Exam: absent: Lymphadenopathy - Cardiovascular Exam Cardiovascular Exam: absent: Gallop, JVD, Rubs - GI/Abdominal Exam GI & Abdominal Exam: Soft, Normal Bowel Sounds - Extremities Exam Extremities Exam: absent: Calf Tenderness - Back Exam Back Exam: absent: CVA tenderness (L), CVA tenderness (R) - Neurological Exam Neurological Exam: Alert - Psychiatric Exam Psychiatric exam: Normal Affect - Skin Skin Exam: absent: Cyanosis Assessment and Plan (1) Pleural effusion Status: Acute (2) Diabetes mellitus type 2 in obese Status: Acute (3) Hx of CABG Status: Acute (4) CHRISTINE (acute kidney injury) Assessment & Plan: patient appears to have acute kidney injury superimposed on chronic kidney disease perhaps stage III related to cardiorenal syndrome related to congestive heart failure. Pleural effusion Rule out urinary tract infection Anemia recommendation and plan Kidney function slightly improving Protein in the urine in the range of about 1400 mg Treatment of congestive heart failure IR for thoracocentesis ultrasound of the kidney PTH pending Status: Acute
--- NOTE | 2018-01-27 11:58 | CT ---
Date of service: 2018-01-26 12:39:04 PROCEDURE: CT Chest without contrast HISTORY: pleural effusion, shortness of breath COMPARISON: 01/12/2018 TECHNIQUE: Contiguous axial images were obtained through the chest without intravenous contrast enhancement. Sagittal and coronal reconstructions were performed. Radiation dose (DLP): 502.23 mGy-cm. This CT exam was performed using one or more of the following dose reduction techniques: Automated exposure control, adjustment of the mA and/or kV according to patient size, and/or use of iterative reconstruction technique. FINDINGS: LUNGS: Extensive left-sided atelectasis involving complete atelectasis of left lower lobe and partial segmental/subsegmental atelectasis of left upper lobe including lingula. This atelectasis is likely passive as result of large left pleural effusion. There is subsegmental atelectasis in the right lower lobe. There is no acute infiltrate. There is no pulmonary mass identified. There is no endobronchial mass identified. MEDIASTINUM: There is atherosclerotic calcification of the thoracic aorta. There is no aneurysmal dilatation of the thoracic aorta. Cardiomegaly. Coronary arterial calcification. Status post CABG. No pericardial effusion. Dilated main pulmonary artery up to 3.4 cm diameter, which may correlate with pulmonary arterial hypertension. Few minimally enlarged mediastinal lymph nodes identified, prevascular, right paratracheal and AP window. PLEURA: Large left pleural effusion. Small right pleural effusion. No pneumothorax. BONES: No fracture. No destructive lesion. UPPER ABDOMEN: Cholelithiasis. OTHER FINDINGS: None. IMPRESSION: Large left pleural effusion with passive atelectasis of entire left lower lobe and partial atelectasis of left upper lobe. Small right pleural effusion with subsegmental atelectasis in right lower lobe. Cardiomegaly. CABG. Dilated main pulmonary artery. The preliminary findings for this examination were reported by [facility] at 6:09 p.m. on 01/26/2018. There is concurrence of this report with the preliminary findings.
--- NOTE | 2018-01-27 12:00 | CP.PCM.PN ---
Subjective - Date & Time of Evaluation Date of Evaluation: 01/27/18 Time of Evaluation: 11:59 - Subjective Subjective: Family would like to have the pt transferred to [facility] [place] a further care. Objective - Vital Signs/Intake and Output Vital Signs (last 24 hours): Temp Pulse Resp BP Pulse Ox 98.5 F 118 H 33 H 95/58 L 95 01/27/18 08:00 01/27/18 10:00 01/27/18 11:50 01/27/18 10:00 01/27/18 10:00 Intake and Output: 01/27/18 01/27/18 06:59 18:59 Intake Total 820 0 Output Total 285 Balance 535 0 - Medications Medications: Current Medications Alprazolam (Xanax) 0.5 mg PO Q12 PRN PRN Reason: Anxiety Last Admin: 01/27/18 00:02 Dose: 0.5 mg Aspirin (Ecotrin) 81 mg PO DAILY [facility] Atorvastatin Calcium (Lipitor) 20 mg PO DAILY [facility] Last Admin: 01/27/18 08:22 Dose: Not Given Clopidogrel Bisulfate (Plavix) 75 mg PO DAILY [facility] Milrinone Lactate/Dextrose (Primacor 20mg/100ml D5w) 100 mls @ 9.507 mls/hr IV .[id number] [facility]; Protocol Last Titration: 01/27/18 11:32 Dose: 0.25 mcg/kg/min, 6.338 mls/hr Sodium Chloride (Sodium Chloride 0.9%) 1,000 mls @ 50 mls/hr IV .Q20H [facility] Stop: 01/27/18 16:48 Last Admin: 01/26/18 16:53 Dose: 50 mls/hr Metoprolol Succinate (Toprol Xl) 25 mg PO DAILY [facility] Last Admin: 01/27/18 08:22 Dose: Not Given Senna/Docusate Sodium (Senokot S 50 Mg-8.6 Mg) 1 tab PO HS [facility] Last Admin: 01/26/18 22:55 Dose: 1 tab Sertraline HCl (Zoloft) 25 mg PO QPM [facility] Last Admin: 01/26/18 17:01 Dose: 25 mg - Labs Labs: 01/27/18 04:35 01/27/18 04:35 PT 15.2 Seconds (9.8-13.1) H 01/27/18 04:35 INR 1.3 01/27/18 04:35 APTT 20.6 Seconds (25.6-37.1) L 01/27/18 04:35
[2018-01-27] MEDS: Sodium Chloride 0.9% 1,000 ML IV SCH (15:33)
--- NOTE | 2018-01-27 15:44 | CP.PCM.PN ---
Subjective - Date & Time of Evaluation Date of Evaluation: 01/27/18 Time of Evaluation: 10:55 - Subjective Subjective: 87 y/o F was seen and examined by bedside with Dr Miles. Children are by bedside, they reports that pt's mental status has improved a little. Pt seems confused, on BiPAP, takes some time to answer yes or no, able to recognized family around her. Pt was able to recognize Dr Miles. Pt afebrile, SECURITIES ATTORNEY was called yesterday at Radiology department due oxygen desaturation when lying down. Objective - Vital Signs/Intake and Output Vital Signs (last 24 hours): Temp Pulse Resp BP Pulse Ox 98.6 F 127 H 47 H 83/68 L 94 L 01/27/18 12:00 01/27/18 15:35 01/27/18 14:00 01/27/18 14:00 01/27/18 14:00 Intake and Output: 01/27/18 01/27/18 06:59 18:59 Intake Total 820 100 Output Total 285 150 Balance 535 -50 - Medications Medications: Current Medications Alprazolam (Xanax) 0.5 mg PO Q12 PRN PRN Reason: Anxiety Last Admin: 01/27/18 00:02 Dose: 0.5 mg Aspirin (Ecotrin) 81 mg PO DAILY [facility] Atorvastatin Calcium (Lipitor) 20 mg PO DAILY [facility] Last Admin: 01/27/18 08:22 Dose: Not Given Clopidogrel Bisulfate (Plavix) 75 mg PO DAILY [facility] Milrinone Lactate/Dextrose (Primacor 20mg/100ml D5w) 100 mls @ 9.507 mls/hr IV .[id number] [facility]; Protocol Last Admin: 01/27/18 15:28 Dose: 0.25 mcg/kg/min, 6.338 mls/hr Sodium Chloride (Sodium Chloride 0.9%) 1,000 mls @ 50 mls/hr IV .Q20H [facility] Stop: 01/27/18 16:48 Last Admin: 01/26/18 16:53 Dose: 50 mls/hr Metoprolol Succinate (Toprol Xl) 25 mg PO DAILY [facility] Last Admin: 01/27/18 08:22 Dose: Not Given Senna/Docusate Sodium (Senokot S 50 Mg-8.6 Mg) 1 tab PO [facility] Last Admin: 01/26/18 22:55 Dose: 1 tab Sertraline HCl (Zoloft) 25 mg PO QPM [facility] Last Admin: 01/26/18 17:01 Dose: 25 mg - Labs Labs: 01/27/18 04:35 01/27/18 04:35 PT 15.2 Seconds (9.8-13.1) H 01/27/18 04:35 INR 1.3 01/27/18 04:35 APTT 20.6 Seconds (25.6-37.1) L 01/27/18 04:35 - Additional Findings Additional findings: - Constitutional Appears: uncomfortable, Confused, cannot lie down. - Head Exam Head Exam: ATRAUMATIC, NORMAL INSPECTION - Eye Exam Eye Exam: EOMI - ENT Exam ENT Exam: Mucous Membranes Dry - Neck Exam Neck exam: Positive for: Full Rom. Negative for: Lymphadenopathy, Meningismus - Respiratory Exam Respiratory Exam: Decreased Breath Sounds on LLL, Wheezes. absent: Accessory Muscle Use, Rales, Rhonchi - Cardiovascular Exam Cardiovascular Exam: +S1, +S2 - GI/Abdominal Exam GI & Abdominal Exam: Soft. absent: Distended, Hernia, Rigid, Tenderness - Extremities Exam Extremities exam: Negative for: calf tenderness, tenderness - Neurological Exam Neurological exam: Altered Assessment and Plan - Assessment and Plan (Free Text) Assessment: 87 y/o F with a PMHx of CAD recent CABG , HTN, hyperlipidemia and pleural effusion is admitted due to altered mental status and dyspnea. PLAN: --Variable mental status. Orthopnea. --On BiPAP. --On Milrinone for cardio support. --Cannot lie down. --Plan is to continue management at [facility] with her thoracic surgeon. --Cardiology, Dr Perez --Nephrology, Dr Tellez --Pulmonology, Dr Marie --General Surgery, Dr Romeo --Continue with BiPAP --Home meds resumed --Continue management as ordered. Case discussed with Dr Jd Benítez, PGY-2
--- NOTE | 2018-01-27 15:46 | CP.PCM.PN ---
Subjective - Date & Time of Evaluation Date of Evaluation: 01/27/18 Time of Evaluation: 11:45 - Subjective Subjective: F/U Respiratory failure. Pt with BIPAP, family at bedside. Objective - Vital Signs/Intake and Output Vital Signs (last 24 hours): Temp Pulse Resp BP Pulse Ox 98.6 F 127 H 47 H 83/68 L 94 L 01/27/18 12:00 01/27/18 15:35 01/27/18 14:00 01/27/18 14:00 01/27/18 14:00 Intake and Output: 01/27/18 01/27/18 06:59 18:59 Intake Total 820 100 Output Total 285 150 Balance 535 -50 - Medications Medications: Current Medications Alprazolam (Xanax) 0.5 mg PO Q12 PRN PRN Reason: Anxiety Last Admin: 01/27/18 00:02 Dose: 0.5 mg Aspirin (Ecotrin) 81 mg PO DAILY [facility] Atorvastatin Calcium (Lipitor) 20 mg PO DAILY [facility] Last Admin: 01/27/18 08:22 Dose: Not Given Clopidogrel Bisulfate (Plavix) 75 mg PO DAILY [facility] Milrinone Lactate/Dextrose (Primacor 20mg/100ml D5w) 100 mls @ 9.507 mls/hr IV .[id number] [facility]; Protocol Last Admin: 01/27/18 15:28 Dose: 0.25 mcg/kg/min, 6.338 mls/hr Sodium Chloride (Sodium Chloride 0.9%) 1,000 mls @ 50 mls/hr IV .Q20H [facility] Stop: 01/27/18 16:48 Last Admin: 01/26/18 16:53 Dose: 50 mls/hr Metoprolol Succinate (Toprol Xl) 25 mg PO DAILY [facility] Last Admin: 01/27/18 08:22 Dose: Not Given Senna/Docusate Sodium (Senokot S 50 Mg-8.6 Mg) 1 tab PO HS [facility] Last Admin: 01/26/18 22:55 Dose: 1 tab Sertraline HCl (Zoloft) 25 mg PO QPM [facility] Last Admin: 01/26/18 17:01 Dose: 25 mg - Labs Labs: 01/27/18 04:35 01/27/18 04:35 PT 15.2 Seconds (9.8-13.1) H 01/27/18 04:35 INR 1.3 01/27/18 04:35 APTT 20.6 Seconds (25.6-37.1) L 01/27/18 04:35 - Constitutional Appears: No Acute Distress - Head Exam Head Exam: NORMAL INSPECTION - Eye Exam Eye Exam: PERRL - ENT Exam Additional comments: Hard of hearing - Neck Exam Neck Exam: Normal Inspection - Respiratory Exam Respiratory Exam: Decreased Breath Sounds (b/l at bases, L>R), Rhonchi (few at bases) - Cardiovascular Exam Cardiovascular Exam: REGULAR RHYTHM, Murmur (systolic) - GI/Abdominal Exam GI & Abdominal Exam: Soft, Hypoactive Bowel Sounds - Extremities Exam Additional comments: Legs edema L>R, ecchymosis BUE - Neurological Exam Neurological Exam: Awake Additional comments: Confused, follows commands, generalized weakness. - Skin Skin Exam: Warm Assessment and Plan (1) Hypercapnic respiratory failure Status: Acute (2) Pleural effusion, left Status: Acute (3) CHF exacerbation Status: Acute (4) COPD (chronic obstructive pulmonary disease) Status: Acute - Assessment and Plan (Free Text) Plan: Planning to be transferred to [facility] today.
[2018-01-27] MEDS ORDERED: DOBUTamine 500mg/250ml D5W 500 MG/250 ML BAG IV SCH (17:00)
[2018-01-27] MEDS ORDERED: DOBUTamine 500mg/250ml D5W 500 MG/250 ML BAG ONE (17:02)
--- NOTE | 2018-01-27 17:53 | US ---
Date of service: 01/27/2018 PROCEDURE: Abdominal ultrasound HISTORY: ?liver congestion,elevated LFT,increasing ammonia COMPARISON: None TECHNIQUE: Portable study. FINDINGS: Nondiagnostic assessment the hepatobiliary system. Unremarkable right kidney LIVER: Nondiagnostic assessment liver. IMPRESSION: Limited study common nondiagnostic examination of liver, gallbladder, pancreas, bile ducts. If hepatobiliary pathology is suspected, CT scan advised
[2018-01-27] MEDS ORDERED: Sodium Chloride 0.9% 500 ML IV ONE (18:19)
--- NOTE | 2018-01-27 18:35 | PCM.PROC ---
Procedures Attestation:: I certify that I have explained the specified Operation(s) or Procedure(s), risks, benefits and reasonable alternatives to the Patient and/or other person responsible. The opportunity was given to ask questions and all questions answered - Central Line Placement Right Femoral Triple Lumen Catheter Aseptic technique was employed throughout the procedure: Hand Hygiene done prior to procedure, Full sterile barriers (mask, hair cover, sterile gown, sterile gloves), Full body sterile drape, Chloraprep Antiseptic: 30 second prep for IJ or SC sites, Chloraprep Antiseptic: 2 minute prep for Femoral CVP Time Out Performed: Yes Pt. Placed on Pulse Ox Monitor: Yes Central Line Prep: Chlorhexidine-Alcohol Combination Local Anesthesia Used: Lidocaine 1% Amount of Anesthesia Used (mls): 5 Ultrasound Used for Placement: No Central Line Lumen Inserted: triple Central Line Length: 20 cm Post Procedure: Sutured in Place, Good Blood Return, All Ports Aspirated, Flushed, Capped, Sterile Dressing Applied Secured by: Suture Post procedure dressing: Clear vapor permeable, Chlorhexidine disc (Biopatch) Post Procedure X-Ray: No Patient Tolerated Procedure: Well Immediate Complications: None Additional Comments: Procedure performed in ICU under emergent conditions for hypotension and vasopressor / vasoactive medication infusion.
[2018-01-27] MEDS ORDERED: Lidocaine 1% Inj (20ml) IJ ONE (19:46)
[2018-01-27] MEDS ORDERED: Lidocaine 1% Inj (20ml) ONE (19:49)
--- NOTE | 2018-01-27 20:57 | PCM.PROC ---
Procedures Attestation:: I certify that I have explained the specified Operation(s) or Procedure(s), risks, benefits and reasonable alternatives to the Patient and/or other person responsible. The opportunity was given to ask questions and all questions answered - Chest Tube Chest Tube Location: Mid-Axillary Left Size of Tube (cm): 15 Chest Tube Procedure: Chlorhexidine Tube Sutured to Skin: Yes Sterile Dressing Applied: Yes Anesthesia: Lidocaine 1% Volume Anesthetic (mls): 10 Incision Made With: #11 blade Post Procedure: sutured to skin, sterile dressing applied, air occlusive dressing Walker of Air Hamblen: No Tube Drainage: fluid Amount of Initial Drainage: 1,500 Patient Tolerated Procedure: Yes
[2018-01-27] MEDS: Docusate-Senna 50 mg-8.6 mg Tab PO SCH (21:24)
[2018-01-27 22:06] VITALS: TEMP 97; O2SAT 98
[2018-01-27 22:11] VITALS: RESP 23
[2018-01-27 23:08] VITALS: BP 109/69; PULSE 132
[2018-01-28 07:04] LABS: BODY FLUID TYPE PLEURAL
[2018-01-28 09:14] LABS: BF GROSS APPEARANCE CLOUDY (CLEAR)
[2018-01-28 10:52] LABS: BODY FLUID MONO/MACROPHAGE 5 % (0-0); BODY FLUID TOTAL COUNT 100 (0-0)
--- NOTE | 2018-01-31 13:01 | PQF ---
PROVIDER RESPONSE TEXT: Acute systolic chf REVIEWER QUERY TEXT: CHF Acuity and Type Congestive Heart Failure is documented in the Medical Record. Please document the type and acuity (in cludes probable or suspected) Such as: Type: -- Systolic -- Diastolic -- Combined -- Other, please specify Acuity: -- Acute -- Chronic -- Acute on chronic -- Other, please specify Also please document the underlying cause of the CHF (includes probable or suspected) The patient's Clinical Indicators include: PT.'s BNP - [id number] on admission; documentation of CHF Exacerbation; Please document if known type of CHF. Query created by: Nanette Su on 01/28/2018 1:50 PM Electronically signed by: Jean Carlos Miles MD 01/31/2018 12:58 PM
--- NOTE | 2018-02-02 04:04 | CARD ---
APPROVED REPORT Date of service: 01/27/2018 EXAM: Two-dimensional and M-mode echocardiogram with Doppler and color Doppler. Other Information Quality : GoodRhythm : Tachycardia INDICATION Congestive Heart Failure 2D DIMENSIONS IVSd1.32 (0.7-1.1cm)LVDd4.73 (3.9-5.9cm) LVOT Diameter1.91 (1.8-2.4cm)PWd1.06 (0.7-1.1cm) IVSs1.06 (0.8-1.2cm)LVDs4.64 (2.5-4.0cm) FS (%) 2.0 %PWs0.96 (0.8-1.2cm) M-Mode DIMENSIONS Left Atrium (MM)4.71 (2.5-4.0cm)IVSd0.97 (0.7-1.1cm) Aortic Root3.06 (2.2-3.7cm)LVDd5.21 (4.0-5.6cm) Aortic Cusp Exc.1.47 (1.5-2.0cm)PWd0.88 (0.7-1.1cm) IVSs1.15 cmFS (%) 21 % LVDs4.12 (2.0-3.8cm)PWs1.18 cm Aortic Valve AoV Peak Wgzkjdjd619.2cm/sAoV VTI27.0cmAO Peak GR.13mmHg LVOT Peak Idtejhbj42.9cm/sLVOT VTI12.53cmAO Mean GR.7mmHg BRIAN (VMAX)0.53lx2MQV (VTI)0.72cm2 Mitral Valve E/A ratio0.0 TDI E/Lateral E'0.0E/Medial E'0.0 Tricuspid Valve TR Peak Ivfifiip368bl/sRAP [id number] Peak Gr.43mmHg [id number] LEFT VENTRICLE The Left Ventricle is borderline dilated. There is borderline to mild concentric left ventricular hypertrophy. The systolic function is moderately to severely impaired. LVEF is 15-20%. There is global hypokinesis of the left ventricle. Transmitral Doppler flow pattern is Grade II-pseudonormal filling dynamics. No left ventricle thrombus noted on this study. There is no ventricular septal defect visualized. There is no left ventricular aneurysm. RIGHT VENTRICLE The right ventricle is mildly dilated. There is normal right ventricular wall thickness. The right ventricular systolic function is normal. ATRIA The left atrium is borderline dilated. The right atrium is mildly dilated. The interatrial septum is intact with no evidence for an atrial septal defect. AORTIC VALVE The aortic valve is calcified but opens well. There is trace to mild aortic regurgitation. There is mild valvular aortic stenosis. There is no aortic valvular vegetation. MITRAL VALVE The mitral valve is thickened but opens well. There is no evidence of mitral valve prolapse. There is no mitral valve stenosis. Mitral regurgitation is mild to moderate. TRICUSPID VALVE The tricuspid valve leaflets are thickened or calcified, but open well. There is mild to moderate tricuspid regurgitation. There is no tricuspid valve prolapse or vegetation. There is no tricuspid valve stenosis. PULMONIC VALVE The pulmonary valve is normal in structure. There is no pulmonic valvular regurgitation. There is no pulmonic valvular stenosis. GREAT VESSELS The aortic root is normal in size. The IVC was not visualized. PERICARDIAL EFFUSION The pericardium appears normal. <Conclusion> There is borderline to mild concentric left ventricular hypertrophy. The systolic function is moderately to severely impaired. LVEF is 15-20%. There is global hypokinesis of the left ventricle. Transmitral Doppler flow pattern is Grade II-pseudonormal filling dynamics. Mitral regurgitation is mild to moderate.
== END 2018-01-27 23:45 | disposition short-term general hospital (02) | DRG 291 ==
LOC: H.ER 10:51 → H.ERHOLD 14:56 → H.ICU/CCU 18:12
PROVIDERS: ADMIT Family Medicine; ATTEND Family Medicine
PROC: 5A09457 Assistance with Respiratory Ventilation, 24-96 Consecutive Hours, Continuous Positive Airway Pressure (ICD-10-PCS; 2018-01-25)
PROC: 0W9B30Z Drainage of Left Pleural Cavity with Drainage Device, Percutaneous Approach (ICD-10-PCS; principal; 2018-01-27)
PROC: 06HY33Z Insertion of Infusion Device into Lower Vein, Percutaneous Approach (ICD-10-PCS; 2018-01-27)
DX: I13.0 Hypertensive heart and chronic kidney disease with heart failure and stage 1 through stage 4 chronic kidney disease, or unspecified chronic kidney disease (principal); J96.02 Acute respiratory failure with hypercapnia; I50.21 Acute systolic (congestive) heart failure; J44.1 Chronic obstructive pulmonary disease with (acute) exacerbation; N17.9 Acute kidney failure, unspecified; J98.11 Atelectasis; N18.3 Chronic kidney disease, stage 3 (moderate); I27.20 Pulmonary hypertension, unspecified; I25.10 Atherosclerotic heart disease of native coronary artery without angina pectoris; E11.22 Type 2 diabetes mellitus with diabetic chronic kidney disease; D64.9 Anemia, unspecified; E78.5 Hyperlipidemia, unspecified; E78.00 Pure hypercholesterolemia, unspecified; F41.9 Anxiety disorder, unspecified; E66.9 Obesity, unspecified; Z99.81 Dependence on supplemental oxygen; Z95.1 Presence of aortocoronary bypass graft; Z87.891 Personal history of nicotine dependence; Z87.01 Personal history of pneumonia (recurrent); Z79.82 Long term (current) use of aspirin; Z79.02 Long term (current) use of antithrombotics/antiplatelets